=== PATIENT | female | born 1995 | race Caucasian/White ===

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

== ENCOUNTER 2017-07-02 05:21 | Emergency (ER) | payer OTHER ==
[2017-07-02] MEDS ORDERED: LORazepam 2 MG/ML INJ IV STA (05:57)
[2017-07-02] MEDS ORDERED: SODIUM CHLORIDE 0.9% 500 ML IV STA (05:57)
--- NOTE | 2017-07-02 06:04 | ED ---
Overdose HPI - General Source: EMS Mode of arrival: EMS Limitations: no limitations - History of Present Illness MD Complaint: accidental overdose -: hour(s) Context: Accidental Overdose: wanted to get high Associated Symptoms: paranoia, hallucinations <SamiTerrence - Last Filed: 07/02/17 05:59> <Jaden Ny - Last Filed: 07/02/17 09:13> - General Chief Complaint: Overdose Stated Complaint: Drug Use Time Seen by Provider: 07/02/17 05:26 - History of Present Illness Initial Comments: This patient is a 22-year-old woman brought to be evaluated for hallucinations and suspected overdose. The patient does report using methamphetamine. It was also reported to EMS that she had used LSD as well. The patient is requesting help to sleep. She states she is afraid she will if she does not get some sleep. She states that her thoughts are racing. She denies suicidal ideation. (Terrence Gallardo) - Related Data Home Medications Medication Instructions Recorded Confirmed No Known Home Medications [No 07/02/17 07/02/17 Known Home Medications] Allergies Allergy/AdvReac Type Severity Reaction Status Date / Time No Known Allergies Allergy Verified 05/03/17 13:39 Review of Systems ROS Other: All systems not noted in ROS Statement are negative. Respiratory: Denies: cough, dyspnea Cardiovascular: Denies: chest pain, palpitations, syncope Gastrointestinal: Denies: abdominal pain, vomiting, diarrhea Genitourinary: Denies: dysuria, hematuria Musculoskeletal: Denies: back pain Skin: Denies: rash Neurological: Denies: headache, weakness, numbness Psychiatric: Reports: anxiety. Denies: homicidal thoughts, suicidal thoughts <Terrence Gallardo - Last Filed: 07/02/17 05:59> ROS Other: All systems not noted in ROS Statement are negative. <Jaden Ny - Last Filed: 07/02/17 09:13> ROS Statement: Those systems with pertinent positive or pertinent negative responses have been documented in the HPI. Past Medical History Past Medical History: Asthma Additional Past Medical History / Comment(s): diarrhea History of Any Multi-Drug Resistant Organisms: None Reported Past Surgical History: Appendectomy Additional Past Surgical History / Comment(s): tubes in ears a child x4. Past Anesthesia/Blood Transfusion Reactions: No Reported Reaction Past Psychological History: ADD/ADHD, Anxiety, Panic Disorder Smoking Status: Current every day smoker Past Alcohol Use History: Occasional Past Drug Use History: Marijuana, Methamphetamine, Prescription Drug Abuse - Past Family History Mother History Unknown: Yes Family Medical History: No Reported History Father Additional Family Medical History / Comment(s): ADD, addiction <Terrence Gallardo - Last Filed: 07/02/17 05:59> General Exam Limitations: no limitations General appearance: alert, anxious Head exam: Present: atraumatic, normocephalic Eye exam: Present: normal appearance, PERRL, EOMI. Absent: scleral icterus, conjunctival injection Pupils: Present: mydriatic ENT exam: Present: normal oropharynx, mucous membranes dry Neck exam: Present: normal inspection Respiratory exam: Present: normal lung sounds bilaterally. Absent: respiratory distress, wheezes, rales, rhonchi, stridor Cardiovascular Exam: Present: regular rate, normal rhythm, normal heart sounds. Absent: systolic murmur, diastolic murmur, rubs, gallop GI/Abdominal exam: Present: soft. Absent: distended, tenderness, guarding, rebound Neurological exam: Present: alert Skin exam: Present: warm, dry, intact, normal color. Absent: rash <Terrence Gallardo - Last Filed: 07/02/17 05:59> Vital Signs 07/02/17 07/02/17 07/02/17 05:26 05:40 07:00 Pulse Rate 115 H 108 H Pulse Rate [ 115 H Pulse Oximetery ] Respiratory 22 18 Rate Blood Pressure 139/88 124/79 O2 Sat by Pulse 99 97 Oximetry Medical Decision Making <SamiTerrence - Last Filed: 07/02/17 05:59> <Jaden Ny - Last Filed: 07/02/17 09:13> - Medical Decision Making The patient was observed throughout the morning and remains awake alert oriented 3 the drugs that she took are wearing off. Patient is in satisfactory condition for discharge. (Jaden Ny) Disposition <SamiTerrence - Last Filed: 07/02/17 05:59> <Jaden Ny - Last Filed: 07/02/17 09:13> Clinical Impression: Drug abuse, Acute anxiety Disposition: HOME SELF-CARE Condition: Good Instructions: Anxiety (ED), Polysubstance Abuse (ED), Methamphetamine Abuse (ED ) Referrals: None,Stated [Primary Care Provider] - 1-2 days
[2017-07-02] MEDS ORDERED: LORazepam 2 MG/ML INJ IM STA (06:31)
[2017-07-02 10:12] VITALS: BP 123/72; PULSE 112; RESP 16
== END 2017-07-02 10:11 | disposition home or self-care (01) ==
LOC: EC 05:21
DX: F19.10 Other psychoactive substance abuse, uncomplicated (principal); F41.9 Anxiety disorder, unspecified; F17.200 Nicotine dependence, unspecified, uncomplicated
CPT/HCPCS: 99284; 96372; J2060

== ENCOUNTER 2017-07-13 18:33 | Emergency (ER) | payer OTHER ==
[2017-07-13 18:59] VITALS: TEMP 97.9
--- NOTE | 2017-07-13 19:24 | ED ---
Psych HPI - General Chief Complaint: Psychiatric Symptoms Stated Complaint: Mental Health/Drug Use Time Seen by Provider: 07/13/17 18:38 Source: patient, EMS Mode of arrival: EMS - History of Present Illness Initial Comments: 22-year-old female patient presents to the emergency department today requesting to be admitted to rehab or the mental health unit. Patient states that for the last few months she has been smoking meth and marijuana. States that since she started doing the drugs she has been having horrible hallucinations. She states at the beginning she smoked meth and did acid together, states that she saw things that she could not "unsee" and will "never be the same". States that she sees things that are not there and is constantly hearing people talking. She feels people are after her and wanting to hurt her. She states that she continues to do the meth because of hallucinations are not as bad. She states that she is in constant fear of falling asleep because when sleeping she cannot control her thoughts. She states she has not been sleeping related to this. Patient denies any suicidal or homicidal ideation. She denies any current physical symptoms other than being tired. She denies any chance of . Patient denies any recent rash, fever, chills, shortness breath, chest pain, abdominal pain, nausea, vomiting, diarrhea, constipation, back pain, numbness, tingling, dizziness, weakness, hematuria, dysuria, urinary urgency, urinary frequency, headache, or any other complaints. - Related Data Home Medications Medication Instructions Recorded Confirmed Albuterol Inhaler [Ventolin Hfa 2 puff INHALATION [id number] PRN 07/13/17 07/13/17 Inhaler] Allergies Allergy/AdvReac Type Severity Reaction Status Date / Time No Known Allergies Allergy Verified 07/13/17 19:41 Review of Systems ROS Statement: Those systems with pertinent positive or pertinent negative responses have been documented in the HPI. ROS Other: All systems not noted in ROS Statement are negative. Past Medical History Past Medical History: Asthma Additional Past Medical History / Comment(s): diarrhea History of Any Multi-Drug Resistant Organisms: None Reported Past Surgical History: Appendectomy Additional Past Surgical History / Comment(s): tubes in ears a child x4. Past Anesthesia/Blood Transfusion Reactions: No Reported Reaction Past Psychological History: ADD/ADHD, Anxiety, Panic Disorder Smoking Status: Never smoker Past Alcohol Use History: Occasional Past Drug Use History: Marijuana, Prescription Drug Abuse - Past Family History Mother History Unknown: Yes Family Medical History: No Reported History Father Additional Family Medical History / Comment(s): ADD, addiction General Exam Limitations: altered mental status General appearance: alert, in no apparent distress, anxious, other (Physical well-developed, well-nourished adult female patient in no acute distress. Vital signs upon presentation are temperature 97.9F, pulse 97, respirations 16 , blood pressure 127/84, pulse ox 97% on room air.) Head exam: Present: atraumatic, normocephalic, normal inspection Eye exam: Present: normal appearance, PERRL, EOMI. Absent: scleral icterus, conjunctival injection, periorbital swelling Respiratory exam: Present: normal lung sounds bilaterally. Absent: respiratory distress, wheezes, rales, rhonchi, stridor Cardiovascular Exam: Present: regular rate, normal rhythm, normal heart sounds. Absent: systolic murmur, diastolic murmur, rubs, gallop, clicks GI/Abdominal exam: Present: soft, normal bowel sounds. Absent: distended, tenderness, guarding, rebound, rigid Neurological exam: Present: alert, oriented X3, CN II-XII intact Expanded Speech: Present: fluid speech Cranial nerves: EOM's Intact: Normal, Nystagmus: Normal Motor strength exam: RUE: 5, LUE: 5, RLE: 5, LLE: 5 Eye Response: (4) open spontaneously Motor Response: (6) obeys commands Verbal Response: (5) oriented [place] Total: 15 Psychiatric exam: Present: normal affect, normal mood Skin exam: Present: warm, dry, intact, normal color. Absent: rash Course Vital Signs 07/13/17 07/13/17 07/13/17 18:50 22:59 23:08 Temperature 97.9 F Pulse Rate 97 84 87 Respiratory 16 Rate Blood Pressure 127/84 O2 Sat by Pulse 97 Oximetry 07/13/17 23:36 Temperature Pulse Rate 104 H Respiratory 18 Rate Blood Pressure 129/74 O2 Sat by Pulse 98 Oximetry Medical Decision Making - Medical Decision Making 22-year-old female patient percents to the emergency department today for evaluation of hallucinations. Patient states that she had been doing drugs for a few months. Patients drug screen was positive for methamphetamines, benzodiazepines, and marijuana. She was evaluated by emergency psych services for the hallucinations. It was felt that this was mostly related to her drug use and they recommended allowing her to sleep to see if her symptoms improved. Patient did sleep for a few hours here, she woke up, stated that she was still having the hallucinations. She is evaluated by [facility]. Patient denied hallucinations presently to [facility] from [facility]. Denied suicidal or homicidal ideation. She'll be discharged home at this time with follow-up information for rehab. She is instructed to return here immediately for any new, worsening, or concerning symptoms. She verbalizes understanding and agrees with this plan. - Lab Data Lab Results 07/13/17 07/13/17 Range/Units 19:29 19:29 Urine Color Yellow Urine Appearance Cloudy H (Clear) Urine pH 6.5 (5.0-8.0) Ur Specific [place] 1.013 (1.001-1.035) Urine Protein Trace H (Negative) Urine Glucose (UA) Negative (Negative) Urine Ketones Negative (Negative) Urine Blood Moderate H (Negative) Urine Nitrite Negative (Negative) Urine Bilirubin Negative (Negative) Urine Urobilinogen <2.0 (<2.0) mg/dL Ur Leukocyte Esterase Negative (Negative) Urine RBC 1 (0-5) /hpf Urine WBC <1 (0-5) /hpf Ur Squamous Epith Cells 2 (0-4) /hpf Amorphous Sediment Rare H (None) /hpf Urine Mucus Few H (None) /hpf Urine HCG, Qual Not Detected (Not Detectd) Urine Opiates Screen Not Detected (NotDetected) Ur Oxycodone Screen Not Detected (NotDetected) Urine Methadone Screen Not Detected (NotDetected) Ur Propoxyphene Screen Not Detected (NotDetected) Ur Barbiturates Screen Not Detected (NotDetected) U Tricyclic Antidepress Not Detected (NotDetected) Ur Phencyclidine Scrn Not Detected (NotDetected) Ur Amphetamines Screen Detected H (NotDetected) U Methamphetamines Scrn Not Detected (NotDetected) U Benzodiazepines Scrn Detected H (NotDetected) Urine Cocaine Screen Not Detected (NotDetected) U Marijuana (THC) Screen Detected H (NotDetected) Disposition Clinical Impression: Substance abuse, Hallucinations Disposition: HOME SELF-CARE Condition: Good Instructions: Polysubstance Abuse (ED), Hallucinations (ED) Additional Instructions: Follow-up outpatient for rehab for your drug addiction. Return here immediately for any new, worsening, or concerning symptoms. Referrals: None,Stated [Primary Care Provider] - 1-2 days Time of Disposition: 01:38
[2017-07-13 19:53] LABS: Amorphous Sediment,Urine Rare /hpf; Appearance,Urine Cloudy (Clear); Bilirubin,Urine Negative (Negative); Blood,Urine Moderate (Negative); Color,Urine Yellow; Glucose,Urine (UA) Negative (Negative); Ketones,Urine Negative (Negative); Leukocyte Esterase,Urine Negative (Negative); Mucus,Urine Few /hpf; Nitrite,Urine Negative (Negative); PH, Urine 6.5 (5.0-8.0); Protein,Urine Trace (Negative); RBC,Urine 1 /hpf (0-5); Specific Gravity,Urine 1.013 (1.001-1.035); Squamous Epithelial Cell,Urine 2 /hpf (0-4); Urobilinogen,Urine <2.0 mg/dL (<2.0); WBC,Urine <1 /hpf (0-5)
[2017-07-13 19:59] LABS: Amphetamine Screen,Urine Detected (NotDetected); Barbiturate Screen,Urine Not Detected (NotDetected); Benzodiazepines Screen,Urine Detected (NotDetected); Cocaine Screen,Urine Not Detected (NotDetected); Methadone Screen, Urine Not Detected (NotDetected); Opiate Screen,Urine Not Detected (NotDetected); Oxycodone Screen, Urine Not Detected (NotDetected); Phencyclidine Screen,Urine Not Detected (NotDetected); Tricyclic Antidepressant,Urine Not Detected (NotDetected); Urn Cannabinoid Scrn Detected (NotDetected)
[2017-07-13] MEDS ORDERED: LORazepam 1 MG TAB PO STA (20:49)
[2017-07-13] MEDS ORDERED: IPRATROPIUM-ALBUTEROL 3 ML NEB INHALATION STA (22:41)
[2017-07-13 23:38] VITALS: RESP 18
[2017-07-14 02:28] VITALS: BP 113/62; PULSE 89
== END 2017-07-14 02:39 | disposition home or self-care (01) ==
LOC: EC 18:33
DX: F12.10 Cannabis abuse, uncomplicated (principal); F15.10 Other stimulant abuse, uncomplicated; F13.20 Sedative, hypnotic or anxiolytic dependence, uncomplicated; R44.0 Auditory hallucinations
CPT/HCPCS: 80306; 81001; 81025; 82075; 94640; 99284

== ENCOUNTER 2017-10-20 00:07 | Emergency (ER) | payer OTHER ==
[2017-10-20 00:38] VITALS: BP 128/67; PULSE 86; RESP 20; TEMP 97.6
[2017-10-20] MEDS ORDERED: LORazepam 1 MG TAB ONE (03:08)
[2017-10-20 06:58] LABS: Appearance,Urine Clear (Clear); Bilirubin,Urine Negative (Negative); Blood,Urine Moderate (Negative); Color,Urine Colorless; Glucose,Urine (UA) Negative (Negative); Ketones,Urine Negative (Negative); Leukocyte Esterase,Urine Negative (Negative); Nitrite,Urine Negative (Negative); PH, Urine 6.5 (5.0-8.0); Protein,Urine Negative (Negative); RBC,Urine <1 /hpf (0-5); Specific Gravity,Urine 1.002 (1.001-1.035); Squamous Epithelial Cell,Urine 1 /hpf (0-4); Urobilinogen,Urine <2.0 mg/dL (<2.0)
[2017-10-20 07:18] LABS: Amphetamine Screen,Urine Detected (NotDetected); Barbiturate Screen,Urine Not Detected (NotDetected); Benzodiazepines Screen,Urine Not Detected (NotDetected); Cocaine Screen,Urine Not Detected (NotDetected); Methadone Screen, Urine Not Detected (NotDetected); Opiate Screen,Urine Not Detected (NotDetected); Oxycodone Screen, Urine Not Detected (NotDetected); Phencyclidine Screen,Urine Not Detected (NotDetected); Tricyclic Antidepressant,Urine Not Detected (NotDetected); Urn Cannabinoid Scrn Not Detected (NotDetected)
== END 2017-10-20 03:32 | disposition home or self-care (01) ==
LOC: EC 00:07
DX: F32.9 Major depressive disorder, single episode, unspecified (principal); F41.9 Anxiety disorder, unspecified; F17.200 Nicotine dependence, unspecified, uncomplicated
CPT/HCPCS: 80306; 81001; 81025; 82075; 99284

== ENCOUNTER 2019-07-04 17:13 | Emergency (ER) | payer OTHER ==
[2019-07-04] MEDS ORDERED: predniSONE 50 MG TAB PO STA (17:17)
[2019-07-04 17:18] VITALS: TEMP 98.9
--- NOTE | 2019-07-04 17:21 | ED ---
SOB HPI - General Stated Complaint: RHONA Time Seen by Provider: 07/04/19 17:13 Source: patient, EMS, RN notes reviewed Mode of arrival: EMS - History of Present Illness Initial Comments: This is a 24-year-old female history of asthma also history of drug abuse including heroin and methamphetamine which she did use the methamphetamine today who presents by EMS with complaints of shortness of breath this started during the middle of night. She states she ran out of her inhaler and Progressively worse. She was given 2 doses of albuterol one of Atrovent with some improvement. She states she's cold with secondary to being outside she denies any cough. She has some rhinorrhea she states she starting a sore throat she states no phlegm production. Patient did refuse an IV started by paramedics. MD Complaint: shortness of breath - Related Data Home Medications Medication Instructions Recorded Confirmed Albuterol Inhaler [Ventolin Hfa 2 puff INHALATION RT-Q6H PRN 07/13/17 10/20/17 Inhaler] Previous Rx's Medication Instructions Recorded methylPREDNISolone Dose Pack 4 mg PO DIRECTED #21 package 07/04/19 [Medrol Dose Pack] Allergies Allergy/AdvReac Type Severity Reaction Status Date / Time No Known Allergies Allergy Verified 07/13/17 19:41 Review of Systems ROS Statement: Those systems with pertinent positive or pertinent negative responses have been documented in the HPI. ROS Other: All systems not noted in ROS Statement are negative. Past Medical History Past Medical History: Asthma Additional Past Medical History / Comment(s): diarrhea History of Any Multi-Drug Resistant Organisms: None Reported Past Surgical History: Appendectomy Additional Past Surgical History / Comment(s): tubes in ears a child x4. Past Anesthesia/Blood Transfusion Reactions: No Reported Reaction Past Psychological History: ADD/ADHD, Anxiety, Panic Disorder Smoking Status: Current every day smoker - Past Family History Mother History Unknown: Yes Family Medical History: No Reported History Father Additional Family Medical History / Comment(s): ADD, addiction General Exam - General Exam Comments Initial Comments: This is a well-developed well-nourished awake alert oriented 3 female General appearance: alert, anxious Head exam: Present: atraumatic, normocephalic, normal inspection Eye exam: Present: normal appearance, PERRL, EOMI. Absent: scleral icterus, conjunctival injection, periorbital swelling ENT exam: Present: mucous membranes moist, other (Boggy nasal mucosa no pharyngeal exudates noted.) Neck exam: Present: normal inspection, full ROM, other (No stridor JVD or bruits). Absent: tenderness, meningismus, lymphadenopathy Respiratory exam: Present: normal lung sounds bilaterally, decreased breath sounds (Slightly decreased breath sounds with scattered expiratory wheezes at the bases). Absent: respiratory distress, wheezes, rales, rhonchi, stridor Cardiovascular Exam: Present: regular rate, normal rhythm, normal heart sounds. Absent: systolic murmur, diastolic murmur, rubs, gallop, clicks GI/Abdominal exam: Present: soft, normal bowel sounds. Absent: distended, tenderness, guarding, rebound, rigid Extremities exam: Present: normal inspection, full ROM, normal capillary refill. Absent: tenderness, pedal edema, joint swelling, calf tenderness Back exam: Present: normal inspection Neurological exam: Present: alert, oriented X3, CN II-XII intact Psychiatric exam: Present: normal affect, normal mood Skin exam: Present: warm, dry, intact, normal color. Absent: rash Course Vital Signs 07/04/19 17:14 Temperature 98.9 F Pulse Rate 98 Respiratory 16 Rate Blood Pressure 115/71 O2 Sat by Pulse 99 Oximetry - Reevaluation(s) Reevaluation #1: 07/04/19 18:23 Reevaluation patient reveals clear lung sounds and good aeration. Medical Decision Making - Medical Decision Making Patient showing much improved she does state that she has no money for medication though she did admit to staff that she did heroin and methamphetamine earlier today. Patient will be discharged he has have prescription already for an albuterol inhaler to be given a prescription for a Medrol Dosepak. She'll follow up with her doctor when necessary she is advised to refrain from illicit drug use. - Lab Data Lab Results 07/04/19 07/04/19 Range/Units 17:26 17:28 Urine HCG, Qual Not Detected (Not Detectd) Influenza Type A RNA Not Detected (Not Detectd) Influenza Type B (PCR) Not Detected (Not Detectd) Disposition Clinical Impression: Asthma with acute exacerbation, Substance abuse Disposition: HOME SELF-CARE Condition: Good Instructions (If sedation given, give patient instructions): Asthma (ED), Methamphetamine Abuse (ED), Polysubstance Abuse (ED) Prescriptions: methylPREDNISolone Dose Pack [Medrol Dose Pack] 4 mg PO DIRECTED #21 package Is patient prescribed a controlled substance at d/c from ED?: No Referrals: Jessi Catalan MD [Primary Care Provider] - 1-2 days
[2019-07-04 18:32] VITALS: BP 112/76; PULSE 86; RESP 18
== END 2019-07-04 18:31 | disposition home or self-care (01) ==
LOC: EC 17:13
DX: J45.901 Unspecified asthma with (acute) exacerbation (principal); F15.10 Other stimulant abuse, uncomplicated; F17.200 Nicotine dependence, unspecified, uncomplicated; Z79.899 Other long term (current) drug therapy; Z81.3 Family history of other psychoactive substance abuse and dependence
CPT/HCPCS: 81025; 87502; 99284; J7512

== ENCOUNTER 2019-07-04 20:11 | Emergency (ER) | payer OTHER ==
[2019-07-04 20:19] VITALS: BP 137/80; PULSE 78; RESP 24; TEMP 97.9
--- NOTE | 2019-07-04 22:15 | ED ---
Anxiety HPI - General Chief Complaint: Anxiety Stated Complaint: mental health Time Seen by Provider: 07/04/19 20:15 Source: patient, RN notes reviewed Mode of arrival: ambulatory - History of Present Illness Initial Comments: This is a 24-year-old female with a history of methamphetamine and heroin abuse somewhat which place earlier today who had just been discharged from this facility after being sent here by EMS for difficulty breathing and wheezing and apparent bronchospasm/asthma attack. She had been discharge initiated improved markedly. She comes back now complaining of being very anxious also she does not have a ride home she states she does not have money for medication. He originally told the triage personnel that she wanted to be seen by someone and talk to them. She later stated she didn't want to be here and wanted go home she denies a suicidal thoughts or ideation MD Complaint: anxiety - Related Data Home Medications: Home Medications Medication Instructions Recorded Confirmed Albuterol Inhaler [Ventolin Hfa 2 puff INHALATION RT-Q6H PRN 07/13/17 10/20/17 Inhaler] Previous Rx's Medication Instructions Recorded methylPREDNISolone Dose Pack 4 mg PO DIRECTED #21 package 07/04/19 [Medrol Dose Pack] Allergies/Adverse Reactions: Allergies Allergy/AdvReac Type Severity Reaction Status Date / Time No Known Allergies Allergy Verified 07/04/19 20:19 Review of Systems ROS Statement: Those systems with pertinent positive or pertinent negative responses have been documented in the HPI. ROS Other: All systems not noted in ROS Statement are negative. Past Medical History Past Medical History: Asthma Additional Past Medical History / Comment(s): diarrhea History of Any Multi-Drug Resistant Organisms: None Reported Past Surgical History: Appendectomy Additional Past Surgical History / Comment(s): tubes in ears a child x4. Past Anesthesia/Blood Transfusion Reactions: No Reported Reaction Past Psychological History: ADD/ADHD, Anxiety, Panic Disorder Smoking Status: Current every day smoker Past Alcohol Use History: None Reported Past Drug Use History: Marijuana, Methamphetamine, Opiates - Past Family History Mother History Unknown: Yes Family Medical History: No Reported History Father Additional Family Medical History / Comment(s): ADD, addiction General Exam - General Exam Comments Initial Comments: Is a well-developed well-nourished awake alert anxious appearing female she was initially tearful but then quickly calmed down. Limitations: no limitations General appearance: alert, in no apparent distress Head exam: Present: atraumatic, normocephalic, normal inspection Eye exam: Present: normal appearance, PERRL, EOMI. Absent: scleral icterus, conjunctival injection, periorbital swelling ENT exam: Present: normal exam, mucous membranes moist Neck exam: Present: normal inspection. Absent: tenderness, meningismus, lymphadenopathy Respiratory exam: Present: normal lung sounds bilaterally. Absent: respiratory distress, wheezes, rales, rhonchi, stridor Cardiovascular Exam: Present: regular rate, normal rhythm, normal heart sounds. Absent: systolic murmur, diastolic murmur, rubs, gallop, clicks GI/Abdominal exam: Present: soft, normal bowel sounds. Absent: distended, tenderness, guarding, rebound, rigid Extremities exam: Present: normal inspection, full ROM, normal capillary refill. Absent: tenderness, pedal edema, joint swelling, calf tenderness Back exam: Present: normal inspection Neurological exam: Present: alert, oriented X3, CN II-XII intact Psychiatric exam: Present: normal affect, normal mood Skin exam: Present: warm, dry, intact, normal color. Absent: rash Course Vital Signs 07/04/19 20:15 Temperature 97.9 F Pulse Rate 78 Respiratory 24 Rate Blood Pressure 137/80 O2 Sat by Pulse 98 Oximetry Medical Decision Making - Medical Decision Making The patient was observed for a period time and did request be going home she did not complain and denies any suicidal or homicidal thoughts or ideation no risk factors. Disposition Clinical Impression: Acute anxiety, Substance abuse Disposition: HOME SELF-CARE Condition: Good Instructions (If sedation given, give patient instructions): Generalized Anxiety Disorder (ED), Polysubstance Abuse (ED) Is patient prescribed a controlled substance at d/c from ED?: No Referrals: Jessi Catalan MD [Primary Care Provider] - 1-2 days
== END 2019-07-04 22:27 | disposition home or self-care (01) ==
LOC: EC 20:11
DX: F41.9 Anxiety disorder, unspecified (principal); F19.10 Other psychoactive substance abuse, uncomplicated; J45.909 Unspecified asthma, uncomplicated; F17.200 Nicotine dependence, unspecified, uncomplicated; Z79.51 Long term (current) use of inhaled steroids
CPT/HCPCS: 99283

== ENCOUNTER 2020-10-20 00:41 | Emergency (ER) | payer OTHER ==
[2020-10-20 00:52] VITALS: TEMP 99.4
[2020-10-20] MEDS ORDERED: MORPHINE SULFATE 4 MG/ML SYRINGE IV STA (01:02)
[2020-10-20] MEDS ORDERED: ONDANSETRON 4 MG/2 ML VIAL IVP STA (01:02)
[2020-10-20] MEDS ORDERED: SODIUM CHLORIDE 0.9% 1,000 ML IV STA ×2 (01:02→03:15)
--- NOTE | 2020-10-20 01:24 | ED ---
Abdominal Pain HPI - General Source: patient, RN notes reviewed Mode of arrival: ambulatory Limitations: no limitations <Julio C Diez - Last Filed: 10/20/20 03:03> <Juaquin Velazquez - Last Filed: 10/20/20 06:01> - General Chief Complaint: Abdominal Pain Stated Complaint: Back Pain Time Seen by Provider: 10/20/20 00:56 - History of Present Illness Initial Comments: Patient is a 25-year-old female that presents to emergency room complaining of bilateral flank pain. She notes she does have a history of urinary tract infections but has not had one in a while. She notes that she recently just started her vessel cycle today. She was laying face down in bed part asleep upon initial evaluation and exam. Only after being instructed roll around to her back she will over. At first she wasn't answering questions appropriately stating that she said her friend thought she stole his bowl for marijuana and that he wanted a back in response to if she had any history of kidney infections. Patient did not appear to be in any distress or pain while laying in bed during exam and interview. She did note that her pain was approximately a 9.5 out of 10. She denied any chest pain first breath headache vomiting diarrhea constipation fever fatigue chills mandatory of dysuria frequency. (Julio C Diez) - Related Data Home Medications Medication Instructions Recorded Confirmed Albuterol Inhaler (Mhu) [Ventolin 2 puff INHALATION RT-Q6H PRN 07/13/17 10/20/17 Hfa Inhaler] Previous Rx's Medication Instructions Recorded methylPREDNISolone Dose Pack 4 mg PO DIRECTED #21 package 07/04/19 [Medrol Dose Pack] Allergies Allergy/AdvReac Type Severity Reaction Status Date / Time No Known Allergies Allergy Verified 07/04/19 20:19 Review of Systems ROS Other: All systems not noted in ROS Statement are negative. <Julio C Diez - Last Filed: 10/20/20 03:03> ROS Other: All systems not noted in ROS Statement are negative. <Juaquin Velazquez - Last Filed: 10/20/20 06:01> ROS Statement: Those systems with pertinent positive or pertinent negative responses have been documented in the HPI. Past Medical History Past Medical History: Asthma Additional Past Medical History / Comment(s): diarrhea History of Any Multi-Drug Resistant Organisms: None Reported Past Surgical History: Appendectomy Additional Past Surgical History / Comment(s): tubes in ears a child x4. Past Anesthesia/Blood Transfusion Reactions: No Reported Reaction Past Psychological History: ADD/ADHD, Anxiety, Panic Disorder Smoking Status: Current every day smoker Past Alcohol Use History: None Reported Past Drug Use History: Marijuana, Methamphetamine, Opiates - Past Family History Mother History Unknown: Yes Family Medical History: No Reported History Father Additional Family Medical History / Comment(s): ADD, addiction <Julio C Diez - Last Filed: 10/20/20 03:03> General Exam Limitations: no limitations General appearance: alert, in no apparent distress Head exam: Present: atraumatic, normocephalic, normal inspection Eye exam: Present: normal appearance, PERRL, EOMI. Absent: scleral icterus, conjunctival injection, periorbital swelling Neck exam: Present: normal inspection Respiratory exam: Present: normal lung sounds bilaterally. Absent: respiratory distress, wheezes, rales, rhonchi, stridor Cardiovascular Exam: Present: regular rate, normal rhythm, normal heart sounds. Absent: systolic murmur, diastolic murmur, rubs, gallop, clicks GI/Abdominal exam: Present: soft, normal bowel sounds. Absent: distended, tenderness, guarding, rebound, rigid Extremities exam: Present: normal inspection, full ROM, normal capillary refill. Absent: tenderness, pedal edema, joint swelling, calf tenderness Back exam: Present: normal inspection, CVA tenderness (R), CVA tenderness (L) Neurological exam: Present: alert, oriented X3, CN II-XII intact Psychiatric exam: Present: normal affect, normal mood Skin exam: Present: warm, dry, intact, normal color. Absent: rash <Julio C Diez - Last Filed: 10/20/20 03:03> Course Vital Signs 10/20/20 10/20/20 10/20/20 00:49 01:34 02:00 Temperature 99.4 F Pulse Rate 137 H 122 H 100 Respiratory 36 H 22 20 Rate Blood Pressure 111/77 117/84 109/78 O2 Sat by Pulse 97 100 95 Oximetry 10/20/20 03:44 Temperature Pulse Rate 115 H Respiratory 22 Rate Blood Pressure 120/82 O2 Sat by Pulse 100 Oximetry Medical Decision Making - Lab Data Result diagrams: 10/20/20 01:19 10/20/20 01:19 <Julio C Diez - Last Filed: 10/20/20 03:03> - Lab Data Result diagrams: 10/20/20 01:19 10/20/20 01:19 <Juaquin Velazquez - Last Filed: 10/20/20 06:01> - Medical Decision Making 25-year-old female complaining of bilateral flank pain. Labs, 4 mg morphine, 4 mg Zofran, 1 L normal saline, KUB ordered. Patient throughout shortly after receiving medications, 10 mg of Reglan ordered. Patient did report to nurse that she is a heroin user and last time she used was yesterday morning. Labs: White blood cells 1.4, neutrophils 1.0, AST 53, alkaline phosphatase 144, albumin 3.3 Sepsis called at 2:38 AM. Blood cultures, lactic acid, Unasyn 3 g ordered. Case discussed with Dr. Velazquez. (Julio C Diez) 25 female DEL with nonspecific abdominal pain. No acute cause found treated with antibiotics for possible urinary tract infection and patient can be discharged home (Juauqin Velazquez) - Lab Data Lab Results 10/20/20 10/20/20 10/20/20 Range/Units 01:19 01:19 01:19 WBC 1.4 L* (3.8-10.6) k/uL RBC 4.53 (3.80-5.40) m/uL Hgb 12.7 (11.4-16.0) gm/dL Hct 38.7 (34.0-46.0) % MCV 85.5 (80.0-100.0) fL MCH 28.1 (25.0-35.0) pg MCHC 32.9 (31.0-37.0) g/dL RDW 13.7 (11.5-15.5) % Plt Count 204 (150-450) k/uL MPV 8.0 Neutrophils % 72 % Lymphocytes % 20 % Monocytes % 3 % Eosinophils % 1 % Basophils % 2 % Neutrophils # 1.0 L (1.3-7.7) k/uL Lymphocytes # 0.3 L (1.0-4.8) k/uL Monocytes # 0.0 (0-1.0) k/uL Eosinophils # 0.0 (0-0.7) k/uL Basophils # 0.0 (0-0.2) k/uL Sodium (137-145) mmol/L Potassium (3.5-5.1) mmol/L Chloride (98-107) mmol/L Carbon Dioxide (22-30) mmol/L Anion Gap mmol/L BUN (7-17) mg/dL Creatinine (0.52-1.04) mg/dL Est GFR (CKD-EPI)AfAm (>60 ml/min/1.73 sqM) Est GFR (CKD-EPI)NonAf (>60 ml/min/1.73 sqM) Glucose (74-99) mg/dL Plasma Lactic Acid Yang (0.7-2.0) mmol/L Calcium (8.4-10.2) mg/dL Phosphorus (2.5-4.5) mg/dL Magnesium (1.6-2.3) mg/dL Total Bilirubin (0.2-1.3) mg/dL AST (14-36) U/L ALT (4-34) U/L Alkaline Phosphatase (38-126) U/L Total Protein (6.3-8.2) g/dL Albumin (3.5-5.0) g/dL Amylase (30-110) U/L Lipase (23-300) U/L Urine Color Light Yellow Urine Appearance Clear (Clear) Urine pH 7.0 (5.0-8.0) Ur Specific [place] 1.007 (1.001-1.035) Urine Protein Negative (Negative) Urine Glucose (UA) Negative (Negative) Urine Ketones Negative (Negative) Urine Blood Large H (Negative) Urine Nitrite Negative (Negative) Urine Bilirubin Negative (Negative) Urine Urobilinogen <2.0 (<2.0) mg/dL Ur Leukocyte Esterase Negative (Negative) Urine RBC 23 H (0-5) /hpf Urine WBC 1 (0-5) /hpf Ur Squamous Epith Cells <1 (0-4) /hpf Urine Mucus Rare H (None) /hpf Urine HCG, Qual Not Detected (Not Detectd) Salicylates mg/dL Acetaminophen ug/mL 10/20/20 10/20/20 10/20/20 Range/Units 01:19 04:06 04:06 WBC (3.8-10.6) k/uL RBC (3.80-5.40) m/uL Hgb (11.4-16.0) gm/dL Hct (34.0-46.0) % MCV (80.0-100.0) fL MCH (25.0-35.0) pg MCHC (31.0-37.0) g/dL RDW (11.5-15.5) % Plt Count (150-450) k/uL MPV Neutrophils % % Lymphocytes % % Monocytes % % Eosinophils % % Basophils % % Neutrophils # (1.3-7.7) k/uL Lymphocytes # (1.0-4.8) k/uL Monocytes # (0-1.0) k/uL Eosinophils # (0-0.7) k/uL Basophils # (0-0.2) k/uL Sodium 134 L (137-145) mmol/L Potassium 3.6 (3.5-5.1) mmol/L Chloride 103 (98-107) mmol/L Carbon Dioxide 23 (22-30) mmol/L Anion Gap 8 mmol/L BUN 14 (7-17) mg/dL Creatinine 0.75 (0.52-1.04) mg/dL Est GFR (CKD-EPI)AfAm >90 (>60 ml/min/1.73 sqM) Est GFR (CKD-EPI)NonAf >90 (>60 ml/min/1.73 sqM) Glucose 96 (74-99) mg/dL Plasma Lactic Acid Yang 2.8 H* (0.7-2.0) mmol/L Calcium 9.2 (8.4-10.2) mg/dL Phosphorus 2.0 L (2.5-4.5) mg/dL Magnesium 1.0 L (1.6-2.3) mg/dL Total Bilirubin 0.9 (0.2-1.3) mg/dL AST 53 H (14-36) U/L ALT 21 (4-34) U/L Alkaline Phosphatase 144 H (38-126) U/L Total Protein 6.3 (6.3-8.2) g/dL Albumin 3.3 L (3.5-5.0) g/dL Amylase 31 (30-110) U/L Lipase 47 50 (23-300) U/L Urine Color Urine Appearance (Clear) Urine pH (5.0-8.0) Ur Specific [place] (1.001-1.035) Urine Protein (Negative) Urine Glucose (UA) (Negative) Urine Ketones (Negative) Urine Blood (Negative) Urine Nitrite (Negative) Urine Bilirubin (Negative) Urine Urobilinogen (<2.0) mg/dL Ur Leukocyte Esterase (Negative) Urine RBC (0-5) /hpf Urine WBC (0-5) /hpf Ur Squamous Epith Cells (0-4) /hpf Urine Mucus (None) /hpf Urine HCG, Qual (Not Detectd) Salicylates <1.0 mg/dL Acetaminophen <10.0 ug/mL Disposition <Julio C Diez - Last Filed: 10/20/20 03:03> Is patient prescribed a controlled substance at d/c from ED?: No <Juaquin Velazquez - Last Filed: 10/20/20 06:01> Clinical Impression: Alcohol abuse, Marijuana use, Intractable vomiting, Tobacco dependence, Abdominal pain Disposition: HOME SELF-CARE Condition: Fair Instructions (If sedation given, give patient instructions): Abdominal Pain (ED) Referrals: None,Stated [Primary Care Provider] - 1-2 days
[2020-10-20 02:03] LABS: ALT 21 U/L (4-34); AST 53 U/L (14-36); African American GFR (CKD) >90 (>60 ml/min/1.73 sqM); Albumin 3.3 g/dL (3.5-5.0); Alkaline Phosphatase 144 U/L (38-126); Amylase 31 U/L (30-110); Anion Gap 8 mmol/L; Blood Urea Nitrogen 14 mg/dL (7-17); Calcium 9.2 mg/dL (8.4-10.2); Carbon Dioxide 23 mmol/L (22-30); Chloride 103 mmol/L (98-107); Glucose 96 mg/dL (74-99); Lipase 47 U/L (23-300); Non-African American GFR(CKD) >90 (>60 ml/min/1.73 sqM); Potassium 3.6 mmol/L (3.5-5.1); Sodium 134 mmol/L (137-145); Total Bilirubin 0.9 mg/dL (0.2-1.3); Total Protein 6.3 g/dL (6.3-8.2)
[2020-10-20 02:07] LABS: Basophils % (A) 2 %; Eosinophils % (A) 1 %; HCT 38.7 % (34.0-46.0); HGB 12.7 gm/dL (11.4-16.0); Lymphocytes # (A) 0.3 k/uL (1.0-4.8); Lymphocytes % (A) 20 %; MCH 28.1 pg (25.0-35.0); MCHC 32.9 g/dL (31.0-37.0); MCV 85.5 fL (80.0-100.0); Monocytes % (A) 3 %; Neutrophils % (A) 72 %; Platelet Count 204 k/uL (150-450); RBC 4.53 m/uL (3.80-5.40); RDW 13.7 % (11.5-15.5)
[2020-10-20] MEDS ORDERED: METOCLOPRAMIDE 5 MG/ML 2 ML VIAL IVP STA (02:11)
[2020-10-20 02:12] LABS: WBC 1.4 k/uL (3.8-10.6)
[2020-10-20] MEDS ORDERED: AMPICILLIN-SULBACTAM 3 GM in SODIUM CHLORIDE 0.9% 100 ML IVPB STA (02:37)
[2020-10-20 02:43] LABS: Appearance,Urine Clear (Clear); Bilirubin,Urine Negative (Negative); Blood,Urine Large (Negative); Color,Urine Light Yellow; Glucose,Urine (UA) Negative (Negative); Ketones,Urine Negative (Negative); Leukocyte Esterase,Urine Negative (Negative); Mucus,Urine Rare /hpf; Nitrite,Urine Negative (Negative); Protein,Urine Negative (Negative); RBC,Urine 23 /hpf (0-5); Specific Gravity,Urine 1.007 (1.001-1.035); Squamous Epithelial Cell,Urine <1 /hpf (0-4); Urobilinogen,Urine <2.0 mg/dL (<2.0); WBC,Urine 1 /hpf (0-5)
[2020-10-20] MEDS ORDERED: AZITHROMYCIN 500 MG TAB PO STA (03:15)
[2020-10-20] MEDS ORDERED: cefTRIAXone IN SWFI 1,000 MG/10 ML SYRINGE IVP ONE (03:30)
[2020-10-20] MEDS: LORazepam 2 MG/ML INJ IV STA ×2 (03:30→04:00)
--- NOTE | 2020-10-20 04:52 | CT ---
EXAM: CT Abdomen and Pelvis Without Intravenous Contrast CLINICAL HISTORY: ITS.REASON CT Reason: weak TECHNIQUE: Axial computed tomography images of the abdomen and pelvis without intravenous contrast. CTDI is 11.77 mGy and DLP is 597.3 mGy-cm. This CT exam was performed using one or more of the following dose reduction techniques: automated exposure control, adjustment of the mA and/or kV according to patient size, and/or use of iterative reconstruction technique. COMPARISON: No relevant prior studies available. FINDINGS: Limitations: Limited study secondary to lack of IV contrast. Lung bases: Mild pulmonary vascular congestion seen within the lower lungs. ABDOMEN: Liver: Hepatic steatosis. Gallbladder and bile ducts: Unremarkable. Pancreas: Unremarkable. Spleen: Unremarkable. Adrenals: Unremarkable. Kidneys and ureters: Unremarkable. Stomach and bowel: Stomach is distended. PELVIS: Appendix: Appendix is not identified. Bladder: Unremarkable. Reproductive: Probable cyst within left ovary measured 3.7 cm. ABDOMEN and PELVIS: Intraperitoneal space: Unremarkable. Bones/joints: No acute fracture. No dislocation. Soft tissues: Unremarkable. Vasculature: See above. Lymph nodes: Unremarkable. IMPRESSION: 1. Limited study secondary to lack of IV contrast. 2. Mild pulmonary vascular congestion seen within the lower lungs. 3. Hepatic steatosis. 4. Probable cyst within left ovary measuring up to 3.7 cm.
[2020-10-20 04:55] LABS: Acetaminophen <10.0 ug/mL; Lipase 50 U/L (23-300); Salicylate <1.0 mg/dL
--- NOTE | 2020-10-20 05:09 | XR ---
EXAM: XR Chest, 1 View CLINICAL HISTORY: ITS.REASON XR Reason: weak TECHNIQUE: Frontal view of the chest. COMPARISON: No relevant prior studies available. FINDINGS: Lungs: Unremarkable. Pleural space: Unremarkable. Heart: Unremarkable. Mediastinum: Unremarkable. Bones/joints: Unremarkable. IMPRESSION: Normal chest x-ray.
[2020-10-20 06:51] VITALS: BP 109/67; PULSE 70; RESP 14
== END 2020-10-20 06:51 | disposition home or self-care (01) ==
LOC: EC 00:41
DX: R10.9 Unspecified abdominal pain (principal); R11.10 Vomiting, unspecified; F17.200 Nicotine dependence, unspecified, uncomplicated; F10.10 Alcohol abuse, uncomplicated; F12.90 Cannabis use, unspecified, uncomplicated; J45.909 Unspecified asthma, uncomplicated
CPT/HCPCS: 36415; 80053; 82150; 83605; 83690; 83735; 84100; 85025; 81001; 81025; 87040; 80143; 80179; 71045; 74176; 99284; J2060; J2270; J2765; J2405; J0696; J0295

== ENCOUNTER 2020-11-09 13:25 | Emergency (ER) | payer OTHER ==
[2020-11-09 13:32] VITALS: BP 120/86; PULSE 73; RESP 18; TEMP 98.1
[2020-11-09] MEDS ORDERED: ONDANSETRON 4 MG/2 ML VIAL IM STA (13:53)
--- NOTE | 2020-11-09 13:56 | ED ---
General Adult HPI - General Chief complaint: Psychiatric Symptoms Stated complaint: Withdrawl Time Seen by Provider: 11/09/20 13:34 Source: patient, EMS, RN notes reviewed, old records reviewed Mode of arrival: EMS - History of Present Illness Initial comments: 25 presenting with suicidal ideation, and her own use. Patient was transported by EMS, she's been off IV fentanyl and IV heroin for the past 24-48 hours. She did report suicidal ideation. She denies a suicidal plan. She states she has been known to use other illicit substances and is currently homeless. - Related Data Home Medications Medication Instructions Recorded Confirmed No Known Home Medications 11/09/20 11/09/20 Allergies Allergy/AdvReac Type Severity Reaction Status Date / Time No Known Allergies Allergy Verified 11/09/20 13:47 Review of Systems ROS Statement: Those systems with pertinent positive or pertinent negative responses have been documented in the HPI. ROS Other: All systems not noted in ROS Statement are negative. Past Medical History Past Medical History: Asthma Additional Past Medical History / Comment(s): diarrhea History of Any Multi-Drug Resistant Organisms: None Reported Past Surgical History: Appendectomy, Ear Surgery Additional Past Surgical History / Comment(s): tubes in ears a child x4. Past Anesthesia/Blood Transfusion Reactions: No Reported Reaction Past Psychological History: ADD/ADHD, Anxiety, Panic Disorder Smoking Status: Current every day smoker Past Alcohol Use History: None Reported Past Drug Use History: Heroin, IV Drug Use, Marijuana, Methamphetamine, Opiates - Past Family History Mother History Unknown: Yes Family Medical History: No Reported History Father Additional Family Medical History / Comment(s): ADD, addiction General Exam General appearance: alert, in no apparent distress Head exam: Present: atraumatic, normocephalic Eye exam: Present: normal appearance, PERRL ENT exam: Present: normal exam Neck exam: Present: normal inspection. Absent: tenderness, meningismus Respiratory exam: Present: normal lung sounds bilaterally. Absent: respiratory distress, wheezes Cardiovascular Exam: Present: regular rate, normal rhythm GI/Abdominal exam: Present: soft. Absent: distended, tenderness, guarding Extremities exam: Present: normal inspection, normal capillary refill. Absent: pedal edema Neurological exam: Present: alert, oriented X3, CN II-XII intact. Absent: motor sensory deficit Psychiatric exam: Present: agitated, suicidal ideation Skin exam: Present: warm, dry, intact. Absent: cyanosis, diaphoretic Course Vital Signs 11/09/20 13:26 Temperature 98.1 F Pulse Rate 73 Respiratory 18 Rate Blood Pressure 120/86 O2 Sat by Pulse 100 Oximetry - Reevaluation(s) Reevaluation #1: 11/09/20 13:56 Patient cleared for EPS. Medical Decision Making - Medical Decision Making Patient has been evaluated by EPS and felt to be safe for discharge. She is given referral to rehabilitation Center. She has signed a safety plan. She is not currently suicidal. She's given a cab fare to her friend's house. Disposition Clinical Impression: Suicidal thoughts, Depression Disposition: HOME SELF-CARE Condition: Fair Instructions (If sedation given, give patient instructions): Depression (ED), Polysubstance Abuse (ED) Additional Instructions: Please follow up with community mental health and the rehabilitation Center you have been provided with. Is patient prescribed a controlled substance at d/c from ED?: No Referrals: None,Stated [Primary Care Provider] - 1-2 days Jessi Catalan MD [REFERRING] - 1-2 days Time of Disposition: 14:36
[2020-11-09] MEDS ORDERED: LORazepam 1 MG TAB PO STA (14:37)
== END 2020-11-09 14:55 | disposition home or self-care (01) ==
LOC: EC 13:25
DX: F32.9 Major depressive disorder, single episode, unspecified (principal); J45.909 Unspecified asthma, uncomplicated; F17.200 Nicotine dependence, unspecified, uncomplicated; Z59.0 Homelessness
CPT/HCPCS: 99284; 96372; 82075; J2405

== ENCOUNTER 2020-11-10 01:20 | Emergency (ER) | payer OTHER ==
[2020-11-10 01:28] VITALS: RESP 20
--- NOTE | 2020-11-10 01:41 | ED ---
Overdose HPI - General Chief Complaint: Overdose Stated Complaint: Overdose Time Seen by Provider: 11/10/20 01:22 Source: patient, police, EMS Mode of arrival: EMS Limitations: no limitations - History of Present Illness Initial Comments: This patient is 25-year-old woman who is brought by EMS to have evaluation after accidental heroin overdose. The patient states that she has been using heroin for a long time, and was trying to detox. She states she had not used in about 2 days, and was developing severe withdrawal symptoms, including aches, nausea, vomiting that she used tonight and accidentally used to much. The patient states that she is not currently having any chest pain, dyspnea, palpitations or any other symptoms. MD Complaint: accidental overdose -: minutes(s) Intent: other (Accidental) How Overdose Was Discovered: family/friend present at time Context: Accidental Overdose: other (Patient states she was trying to get rid of withdrawal symptoms) Treatments Prior to Arrival: narcan - Related Data Home Medications Medication Instructions Recorded Confirmed No Known Home Medications 11/09/20 11/09/20 Allergies Allergy/AdvReac Type Severity Reaction Status Date / Time No Known Allergies Allergy Verified 11/10/20 01:27 Review of Systems ROS Statement: Those systems with pertinent positive or pertinent negative responses have been documented in the HPI. ROS Other: All systems not noted in ROS Statement are negative. Constitutional: Denies: fever, chills Respiratory: Denies: cough, dyspnea Cardiovascular: Denies: chest pain, palpitations, edema Gastrointestinal: Denies: abdominal pain Genitourinary: Denies: dysuria, hematuria Musculoskeletal: Denies: back pain Neurological: Denies: headache, weakness, numbness Psychiatric: Denies: depression, homicidal thoughts, suicidal thoughts Past Medical History Past Medical History: Asthma Additional Past Medical History / Comment(s): diarrhea, opiate abuse History of Any Multi-Drug Resistant Organisms: None Reported Past Surgical History: Appendectomy, Ear Surgery Additional Past Surgical History / Comment(s): tubes in ears a child x4. Past Anesthesia/Blood Transfusion Reactions: No Reported Reaction Past Psychological History: ADD/ADHD, Anxiety, Panic Disorder Smoking Status: Current every day smoker Past Alcohol Use History: None Reported Past Drug Use History: Heroin, IV Drug Use, Marijuana, Methamphetamine, Opiates - Past Family History Mother History Unknown: Yes Family Medical History: No Reported History Father Additional Family Medical History / Comment(s): ADD, addiction General Exam Limitations: no limitations General appearance: alert, in no apparent distress Head exam: Present: atraumatic, normocephalic Eye exam: Present: normal appearance. Absent: scleral icterus, conjunctival injection Respiratory exam: Present: normal lung sounds bilaterally. Absent: respiratory distress, wheezes, rales, rhonchi, stridor Cardiovascular Exam: Present: regular rate, normal rhythm, normal heart sounds. Absent: systolic murmur, diastolic murmur, rubs, gallop GI/Abdominal exam: Present: soft. Absent: distended, tenderness, guarding, rebound, rigid, mass Extremities exam: Present: normal inspection, normal capillary refill. Absent: pedal edema, calf tenderness Back exam: Present: normal inspection. Absent: CVA tenderness (R), CVA tenderness (L) Neurological exam: Present: alert Psychiatric exam: Absent: depressed, agitated, anxious, flat affect, manic, homicidal ideation, suicidal ideation Skin exam: Present: warm, dry, intact, normal color. Absent: rash Course Vital Signs 11/10/20 11/10/20 11/10/20 01:22 02:50 03:00 Temperature 98.5 F Pulse Rate 101 H 98 98 Respiratory 20 20 20 Rate Blood Pressure 108/56 118/80 O2 Sat by Pulse 100 97 99 Oximetry 11/10/20 11/10/20 11/10/20 04:00 05:00 06:00 Temperature Pulse Rate 97 98 80 Respiratory 20 20 20 Rate Blood Pressure 103/61 105/66 103/61 O2 Sat by Pulse 98 98 97 Oximetry 11/10/20 07:00 Temperature 98.7 F Pulse Rate 92 Respiratory 20 Rate Blood Pressure 115/65 O2 Sat by Pulse 98 Oximetry Disposition Clinical Impression: Accidental drug overdose Disposition: HOME SELF-CARE Condition: Good Instructions (If sedation given, give patient instructions): Adult Overdose (ED) Is patient prescribed a controlled substance at d/c from ED?: No Referrals: None,Stated [Primary Care Provider] - 1-2 days
[2020-11-10] MEDS ORDERED: ONDANSETRON ODT 4 MG TAB PO STA (01:52)
[2020-11-10 07:00] VITALS: BP 115/65; PULSE 92; TEMP 98.7
== END 2020-11-10 07:16 | disposition home or self-care (01) ==
LOC: EC 01:20
DX: T40.1X1A Poisoning by heroin, accidental (unintentional), initial encounter (principal); F17.200 Nicotine dependence, unspecified, uncomplicated; J45.909 Unspecified asthma, uncomplicated
CPT/HCPCS: 99284

== ENCOUNTER 2021-07-05 10:21 | Emergency (ER) | payer OTHER ==
[2021-07-05 10:25] VITALS: BP 136/74; RESP 24; TEMP 98.4
[2021-07-05] MEDS ORDERED: methylPREDNISolone SOD SUCCI 125 MG/2 ML VIAL IM ONE (10:32)
[2021-07-05] MEDS ORDERED: IPRATROPIUM 0.5 MG/2.5 ML NEBU INHALATION STA (10:33)
[2021-07-05] MEDS ORDERED: ALBUTEROL NEBULIZED 2.5 MG/3 ML INHALATION STA (10:33)
--- NOTE | 2021-07-05 10:35 | ED ---
General Adult HPI - General Chief complaint: Shortness of Breath Stated complaint: Asthma/RHONA Time Seen by Provider: 07/05/21 10:25 Source: patient, RN notes reviewed, old records reviewed Mode of arrival: ambulatory Limitations: no limitations - History of Present Illness Initial comments: This is a 26-year-old female who presents emergency department stating she has asthma and it always gets exacerbated when she saw her PER patient states she was around cats yesterday and since then she's been wheezing came.. Patient states she lost her nebulizer doesn't have any inhalers. Patient denies any fever chills or cough. Patient denies any exposure to cold. Patient denies any chest pain or palpitations. Patient denies any abdominal pain patient denies nausea vomiting diarrhea per patient denies any lightheadedness or dizziness. Patient states this always happens which was AND she just avoids them. - Related Data Home Medications Medication Instructions Recorded Confirmed No Known Home Medications 11/09/20 07/05/21 Allergies Allergy/AdvReac Type Severity Reaction Status Date / Time No Known Allergies Allergy Verified 07/05/21 10:39 Review of Systems ROS Statement: Those systems with pertinent positive or pertinent negative responses have been documented in the HPI. ROS Other: All systems not noted in ROS Statement are negative. Past Medical History Past Medical History: Asthma Additional Past Medical History / Comment(s): diarrhea, opiate abuse History of Any Multi-Drug Resistant Organisms: None Reported Past Surgical History: Appendectomy, Ear Surgery Additional Past Surgical History / Comment(s): tubes in ears a child x4. Past Anesthesia/Blood Transfusion Reactions: No Reported Reaction Past Psychological History: ADD/ADHD, Anxiety, Panic Disorder Smoking Status: Never smoker Past Alcohol Use History: None Reported Past Drug Use History: None Reported, Heroin, IV Drug Use, Marijuana, Methamphetamine, Opiates - Past Family History Mother History Unknown: Yes Family Medical History: No Reported History Father Additional Family Medical History / Comment(s): ADD, addiction General Exam - General Exam Comments Initial Comments: GENERAL: Patient is well-developed and well-nourished. Patient is nontoxic and well- hydrated and is in mild distress. ENT: Neck is soft and supple. No significant lymphadenopathy is noted. Oropharynx is clear. Moist mucous membranes. Neck has full range of motion without eliciting any pain. EYES: The sclera were anicteric and conjunctiva were pink and moist. Extraocular movements were intact and pupils were equal round and reactive to light. Eyelids were unremarkable. PULMONARY: Patient has diffuse wheezing CARDIOVASCULAR: There is a regular rate and rhythm without any murmurs gallops or rubs. ABDOMEN: Soft and nontender with normal bowel sounds. SKIN: Skin is clear with no lesions or rashes and otherwise unremarkable. NEUROLOGIC: Patient is alert and oriented x3. Cranial nerves II through XII are grossly intact. Motor and sensory are also intact. Normal speech, volume and content. Symmetrical smile. MUSCULOSKELETAL: Normal extremities with adequate strength and full range of motion. LYMPHATICS: No significant lymphadenopathy is noted PSYCHIATRIC: Normal psychiatric evaluation. Limitations: no limitations Course Vital Signs 07/05/21 07/05/21 07/05/21 10:23 10:54 11:16 Temperature 98.4 F Pulse Rate 115 H 88 90 Respiratory 24 24 24 Rate Blood Pressure 136/74 O2 Sat by Pulse 98 Oximetry Medical Decision Making - Medical Decision Making Patient received 3 breathing treatments and steroids and then left without telling anyone or being reevaluated. Disposition Clinical Impression: Asthma with acute exacerbation Disposition: Left Against Medical Advice Referrals: None,Stated [Primary Care Provider] - 1-2 days Time of Disposition: 11:30
[2021-07-05 11:17] VITALS: PULSE 90
== END 2021-07-05 12:31 | disposition left against medical advice (07) ==
LOC: EC 10:21
DX: J45.901 Unspecified asthma with (acute) exacerbation (principal)
CPT/HCPCS: 94640; 99284; 96372; J2930; 99283

== ENCOUNTER 2021-11-16 04:53 | Inpatient (IN) | payer OTHER ==
--- NOTE | 2021-11-16 07:14 | ED ---
General Adult HPI - General Source: patient Mode of arrival: ambulatory Limitations: physical limitation - History of Present Illness Onset/Timin -: days(s) Location: right, lower extremity Radiation: non-radiation Quality: aching Consistency: constant Improves with: none Worsens with: movement Treatments Prior to Arrival: none <Terrence Gallardo - Last Filed: 11/16/21 07:11> <Tete Aden - Last Filed: 11/18/21 15:21> - General Chief complaint: Recheck/Abnormal Lab/Rx Stated complaint: Hip Pain Time Seen by Provider: 11/16/21 05:25 - History of Present Illness Initial comments: This patient is a 26-year-old woman who presents to have evaluation of right hip pain. The patient relates that she began having pain approximately 8 days ago. She went to [facility] for the pain and was felt to have right hip septic arthritis. She underwent procedure on the 2 I believe have a washout of the joint. The patient is not able to give exact history, she does not know who the surgeon was. The patient had been in the hospital for course of antibiotics and then left AGAINST MEDICAL ADVICE on the . Since that time she has not been on any antibiotics. She presents here to have evaluation of pain. She has not noted fevers. There is history of previous IVDA. She is not aware of having had any endocarditis or previous echocardiogram to rule this out. (Terrence Gallardo) - Related Data Home Medications Medication Instructions Recorded Confirmed No Known Home Medications 11/09/20 11/16/21 Allergies Allergy/AdvReac Type Severity Reaction Status Date / Time No Known Allergies Allergy Verified 11/16/21 10:15 Review of Systems ROS Other: All systems not noted in ROS Statement are negative. Constitutional: Denies: fever, chills, weakness Respiratory: Denies: cough, dyspnea Cardiovascular: Denies: chest pain, palpitations, edema, syncope Gastrointestinal: Denies: abdominal pain, vomiting, diarrhea Musculoskeletal: Reports: as per HPI, arthralgia Skin: Denies: rash Neurological: Denies: weakness, numbness, paresthesias <Terrence Gallardo - Last Filed: 11/16/21 07:11> ROS Other: All systems not noted in ROS Statement are negative. <Tete Aden - Last Filed: 11/18/21 15:21> ROS Statement: Those systems with pertinent positive or pertinent negative responses have been documented in the HPI. Past Medical History Past Medical History: Asthma Additional Past Medical History / Comment(s): diarrhea, opiate abuse History of Any Multi-Drug Resistant Organisms: None Reported Past Surgical History: Appendectomy, Ear Surgery Additional Past Surgical History / Comment(s): tubes in ears a child x4. Past Anesthesia/Blood Transfusion Reactions: No Reported Reaction Past Psychological History: ADD/ADHD, Anxiety, Panic Disorder Smoking Status: Current every day smoker Past Alcohol Use History: None Reported Past Drug Use History: Heroin, IV Drug Use, Marijuana, Methamphetamine, Opiates - Past Family History Mother History Unknown: Yes Family Medical History: No Reported History Father Additional Family Medical History / Comment(s): ADD, addiction <Terrence Gallardo - Last Filed: 11/16/21 07:11> General Exam Limitations: physical limitation General appearance: alert, in no apparent distress Head exam: Present: atraumatic, normocephalic Eye exam: Present: normal appearance. Absent: scleral icterus, conjunctival injection ENT exam: Present: normal oropharynx Neck exam: Present: normal inspection Respiratory exam: Present: normal lung sounds bilaterally. Absent: respiratory distress, wheezes, rales, rhonchi, stridor Cardiovascular Exam: Present: regular rate, normal rhythm, normal heart sounds. Absent: systolic murmur, diastolic murmur, rubs, gallop GI/Abdominal exam: Present: soft. Absent: distended, tenderness, guarding, rebound, rigid, mass Extremities exam: Present: normal inspection, normal capillary refill. Absent: pedal edema, calf tenderness Back exam: Present: normal inspection. Absent: CVA tenderness (R), CVA tenderness (L) Neurological exam: Present: alert Skin exam: Present: warm, dry, intact, normal color. Absent: rash <Terrence Gallardo - Last Filed: 11/16/21 07:11> Extremities exam: Present: other (right anterior hip/femoral region there is an approximate 10 cm in length surgical incision with purulent drainage) <Tete Aden - Last Filed: 11/18/21 15:21> Course <Tete Aden - Last Filed: 11/18/21 15:21> Vital Signs 11/16/21 11/16/21 11/16/21 04:56 15:00 19:08 Temperature 98.4 F 99.2 F Pulse Rate 99 98 Pulse Rate [ Central Service Technician ] Pulse Rate [ 86 Pulse Oximetery ] Respiratory 18 18 16 Rate Blood Pressure 107/71 110/68 Blood Pressure 105/64 [Right Arm] O2 Sat by Pulse 98 98 98 Oximetry 11/16/21 11/16/21 11/16/21 19:09 19:50 22:12 Temperature 99.2 F 99.2 F Pulse Rate 85 94 Pulse Rate [ 89 Central Service Technician ] Pulse Rate [ Pulse Oximetery ] Respiratory 16 16 Rate Blood Pressure 105/64 109/77 Blood Pressure 117/78 [Right Arm] O2 Sat by Pulse 97 100 97 Oximetry - Reevaluation(s) Reevaluation #1: Dr. Mason paged 9:59 (Tete Aden) Reevaluation #2: Dr. Mason returned called - states that patient falsifies that she sees Dr. Ambrosio. States the patient does not belong to him and needs to be admitted to [facility] call doctor. 11/16/21 11:27 (Tete Aden) Reevaluation #3: 11/16/21 11:41 Dr. Best agreed to admit the patient (Tete Aden) Reevaluation #4: 11/16/21 12:22 Spoke with orthopedic PA who will talk to Dr. Isaac and call me back (Tete Aden) Medical Decision Making - Lab Data Result diagrams: 11/18/21 06:29 11/18/21 06:29 <Tete Aden - Last Filed: 11/18/21 15:21> - Medical Decision Making Patient was evaluated by myself. I did review her labs. Evaluation of the patient's surgical sites reveals purulent drainage which is cultured. We did get transfer packet from outside hospital which demonstrates wound cultures positive for strep pyogenes. She was on Ancef 2 g every 8 hours with anticipation that she would go on IV Dalvance for 6 weeks. Due to the drainage coming from the patient's wound there is suspicion the patient continues to have septic joint. Patient will require IV antibiotics. Did recommend transfer back to [facility] as this is where the patient had previous surgery. Patient is refusing at this time. States that she will not be transferred back to that facility as she did not like her care. Because of this I did call and speak with Dr. Best who agreed to admit the patient. Then spoke with Dr. Isaac who agreed to consult on the patient. IV line had been in place however patient was complaining that it hurts too much and therefore line was removed. Multiple attempts were made to reinitiate line. I was able to attempt once using ultrasound guidance however after the line would not flush patient refused to allow me any more attempts. We will call anesthesia at this time for assistance. Patient agreeable to admission at this time. Social work and case management consultation (Tete Aden) - Lab Data Lab Results 11/16/21 11/16/21 Range/Units 07:00 07:05 WBC 7.3 (3.8-10.6) k/uL RBC 3.69 L (3.80-5.40) m/uL Hgb 11.1 L (11.4-16.0) gm/dL Hct 33.4 L (34.0-46.0) % MCV 90.6 (80.0-100.0) fL MCH 30.0 (25.0-35.0) pg MCHC 33.1 (31.0-37.0) g/dL RDW 13.3 (11.5-15.5) % Plt Count 512 H (150-450) k/uL MPV 7.2 Neutrophils % 50 % Lymphocytes % 34 % Monocytes % 9 % Eosinophils % 6 % Basophils % 1 % Neutrophils # 3.7 (1.3-7.7) k/uL Lymphocytes # 2.5 (1.0-4.8) k/uL Monocytes # 0.6 (0-1.0) k/uL Eosinophils # 0.4 (0-0.7) k/uL Basophils # 0.0 (0-0.2) k/uL Sodium 136 L (137-145) mmol/L Potassium 4.1 (3.5-5.1) mmol/L Chloride 101 (98-107) mmol/L Carbon Dioxide 28 (22-30) mmol/L Anion Gap 7 mmol/L BUN 10 (7-17) mg/dL Creatinine 0.51 L (0.52-1.04) mg/dL Est GFR (CKD-EPI)AfAm >90 (>60 ml/min/1.73 sqM) Est GFR (CKD-EPI)NonAf >90 (>60 ml/min/1.73 sqM) Glucose 87 (74-99) mg/dL Calcium 9.0 (8.4-10.2) mg/dL Total Bilirubin 0.8 (0.2-1.3) mg/dL AST 29 (14-36) U/L ALT 22 (4-34) U/L Alkaline Phosphatase 88 (38-126) U/L C-Reactive Protein 5.1 H (<1.0) mg/dL Total Protein 7.7 (6.3-8.2) g/dL Albumin 3.5 (3.5-5.0) g/dL Disposition <Terrence Gallardo - Last Filed: 11/16/21 07:11> Is patient prescribed a controlled substance at d/c from ED?: No Time of Disposition: 11:50 Decision to Admit Reason: Admit from EC Decision Date: 11/16/21 Decision Time: 11:50 <Tete Aden - Last Filed: 11/18/21 15:21> Clinical Impression: Polysubstance abuse, IV drug user, Septic arthritis Disposition: ADMITTED IP TO THIS HOSP Condition: Serious
[2021-11-16 07:35] LABS: Basophils % (A) 1 %; Eosinophils # (A) 0.4 k/uL (0-0.7); Eosinophils % (A) 6 %; HCT 33.4 % (34.0-46.0); HGB 11.1 gm/dL (11.4-16.0); Lymphocytes # (A) 2.5 k/uL (1.0-4.8); Lymphocytes % (A) 34 %; MCHC 33.1 g/dL (31.0-37.0); MCV 90.6 fL (80.0-100.0); Mean Platelet Volume 7.2; Monocytes # (A) 0.6 k/uL (0-1.0); Monocytes % (A) 9 %; Neutrophils # (A) 3.7 k/uL (1.3-7.7); Neutrophils % (A) 50 %; Platelet Count 512 k/uL (150-450); RBC 3.69 m/uL (3.80-5.40); RDW 13.3 % (11.5-15.5); WBC 7.3 k/uL (3.8-10.6)
[2021-11-16 08:04] LABS: ALT 22 U/L (4-34); AST 29 U/L (14-36); African American GFR (CKD) >90 (>60 ml/min/1.73 sqM); Albumin 3.5 g/dL (3.5-5.0); Alkaline Phosphatase 88 U/L (38-126); Anion Gap 7 mmol/L; Blood Urea Nitrogen 10 mg/dL (7-17); Carbon Dioxide 28 mmol/L (22-30); Chloride 101 mmol/L (98-107); Glucose 87 mg/dL (74-99); Non-African American GFR(CKD) >90 (>60 ml/min/1.73 sqM); Potassium 4.1 mmol/L (3.5-5.1); Sodium 136 mmol/L (137-145); Total Bilirubin 0.8 mg/dL (0.2-1.3); Total Protein 7.7 g/dL (6.3-8.2)
[2021-11-16 08:29] LABS: C Reactive Protein 5.1 mg/dL (<1.0)
[2021-11-16] MEDS ORDERED: ACETAMINOPHEN TAB 325 MG TAB PO PRN (11:50)
[2021-11-16] MEDS ORDERED: ONDANSETRON 4 MG/2 ML VIAL IVP PRN (11:50)
[2021-11-16] MEDS ORDERED: IBUPROFEN 400 MG TAB PO PRN (11:50)
[2021-11-16] MEDS ORDERED: NALOXONE 0.4 MG/ML 1 ML VIAL IV PRN ×2 (11:50→17:32)
--- NOTE | 2021-11-16 14:27 | XR ---
EXAMINATION TYPE: XR Hip Limited RT DATE OF EXAM: 11/16/2021 COMPARISON: NONE HISTORY: Swelling and infection TECHNIQUE: 2 views submitted FINDINGS: There is no evidence of erosive change or acute fracture. No destructive changes seen. Osseous struct ures intact. IMPRESSION: 1. No acute osseous abnormality. If concern for joint effusion consider ultrasound..
[2021-11-16] MEDS ORDERED: ceFAZolin 1,000 MG VIAL (IM USE) IM SCH (16:00)
--- NOTE | 2021-11-16 16:31 | P.CNOR ---
History of Present Illness - [facility] Consult date: 11/16/21 History of present illness: This patient is a 26-year-old female with a history of IVDA that presented to [facility] emergency department on 11/16/21 with complaints of right hip pain. Per the emergency department physician, patient was recently evaluated at [facility] for septic arthritis of the right hip. Patient was taken to the OR for an I&D of the right hip on 11/07/21 by orthopedics. Patient left AMA twice from this facility in the post-operative period, before IV antibiotics were able to be established. Per discharge papers from [facility], cultures were positive for strep pyogenes. Patient was on Ancef 2 g every 8 hours with anticipation that she would be discharged on IV Dalvance for 6 weeks. Patient left AMA before antibiotics were established. Patient presented to [facility] emergency department today with complaints of drainage from the right hip incision. Patient refused transfer to [facility], stating she did not like the care she received at that facility. Patient was admitted under the care of internal medicine with a consult placed to orthopedic surgery for evaluation of her right hip. Patient is examined bedside in the emergency department this afternoon. She is complaining of drainage from her right hip incision. She states she otherwise feels well and denies fevers, chills. Patient is afebrile, WBC within normal limits. Past Medical History Past Medical History: Asthma Additional Past Medical History / Comment(s): diarrhea, opiate abuse History of Any Multi-Drug Resistant Organisms: None Reported Past Surgical History: Appendectomy, Ear Surgery Additional Past Surgical History / Comment(s): tubes in ears a child x4. Past Anesthesia/Blood Transfusion Reactions: No Reported Reaction Past Psychological History: ADD/ADHD, Anxiety, Panic Disorder Smoking Status: Current every day smoker Past Alcohol Use History: None Reported Past Drug Use History: Heroin, IV Drug Use, Marijuana, Methamphetamine, Opiates - Past Family History Mother History Unknown: Yes Family Medical History: No Reported History Father Additional Family Medical History / Comment(s): ADD, addiction Medications and Allergies Home Medications Medication Instructions Recorded Confirmed Type No Known Home Medications 11/09/20 11/16/21 History Allergies Allergy/AdvReac Type Severity Reaction Status Date / Time No Known Allergies Allergy Verified 11/16/21 10:15 Physical Examination On examination, patient is sitting up in the gurney in no apparent distress. She is alert and oriented, although she appears mildly lethargic. Her head appears normocephalic and atraumatic. Her breathing appears nonlabored. A focused examination of the right hip is conducted. On inspection of the right hip, there is a healing incision at the anterior hip with a moderate amount of active serosanguineous drainage. Mild erythema. Skin edges well approximated. Motor and sensory function is grossly intact on the right lower extremity. Patient is able to ambulate and weight-bear without pain in the right hip. Results Right hip x-ray 11/16/21: No acute fractures. No acute bony abnormalities. - Labs Labs: Abnormal Lab Results - Last 24 Hours (Table) 11/16/21 11/16/21 Range/Units 07:00 07:05 RBC 3.69 L (3.80-5.40) m/uL Hgb 11.1 L (11.4-16.0) gm/dL Hct 33.4 L (34.0-46.0) % Plt Count 512 H (150-450) k/uL Sodium 136 L (137-145) mmol/L Creatinine 0.51 L (0.52-1.04) mg/dL C-Reactive Protein 5.1 H (<1.0) mg/dL Microbiology - Last 24 Hours (Table) 11/16/21 10:27 Wound Culture - Preliminary Hip - Right H & H 11/16/21 Range/Units 07:05 Hgb 11.1 L (11.4-16.0) gm/dL Hct 33.4 L (34.0-46.0) % Result Diagrams: 11/16/21 07:05 11/16/21 07:00 Assessment and Plan Assessment: Right hip septic arthritis History recent I&D right hip 11/07/21 at outside facility, patient left AMA Plan: - Patient was discussed in detail with Dr. Isaac. No emergent surgical intervention planned for today. Stat MRI of the right hip w/wo contrast ordered for further evaluation of the right hip. Further recommendations pending MRI. - Will plan to place a Prevena wound vac over right hip incision due to current active drainage. - IV antibiotics per admitting team and infectious disease. - We will follow patient closely.
[2021-11-16] MEDS ORDERED: VANCOMYCIN IV PER PHARMACY 1 EACH MISC MISCELLANE PRN (17:23)
[2021-11-16] MEDS ORDERED: ALPRAZolam 0.25 MG TAB PO PRN (17:32)
--- NOTE | 2021-11-16 17:37 | P.HPIM ---
History of Present Illness H&P Date: 11/16/21 26 years old female with a history of IV drug abuse who was recently seen at [facility] for septic arthritis of right hip joint and apparently had incision and drainage of the right hip on 11/07/2021. Patient left AGAINST MEDICAL ADVICE before intravenous antibiotics arrangement could be done. Apparently over there patient was on Ancef and apparently was advised to have IV Dalvance for 6 weeks. She left AGAINST MEDICAL ADVICE before the antibiotic arrangement could be done. Patient presented to [facility] emergency with right hip pain, she reports that she is currently homeless and has no place to go, she does not have any source of income and apparently was with some friend who recently asked her to move out of her place. She does not want to go back to [facility] as she feels she was not treated in a good way over there as per patient. Patient reporting right hip pain with drainage from the right hip incision area. She doesn't report any chest pain fevers shortness of breath. She was seen by orthopedics in emergency department here who recommended getting an MRI of the right hip with and without contrast also possible plan for wound VAC placement on the right hip incision area, further surgical intervention plan will be dependent on MRI results. Infection disease also consulted. Hospital medicine consulted for admission to hospital for further care Assessment and Plan Septic arthritis Patient has likely septic arthritis, recently had incision and drainage done outside hospital, was supposed to get 6 weeks of IV antibiotics but left AGAINST MEDICAL ADVICE before the antibiotics could be arranged Seen by orthopedics here Plan for MRI hip joint, for further interventions by orthopedic pending MRI results Possible plan for wound VAC placement Continue IV antibiotics patient will be started on ceftriaxone and vancomycin Obtain blood cultures Infection disease will be consulted History of IV drug abuse Patient reports history of IV drug abuse Currently actively using methamphetamine Obtain urine drug screen DVT prophylaxis: Subcutaneous heparin CODE STATUS: Full code Disposition plan: Pending hospital course, to be determined Review of Systems 14 point review of system was done in detail and is negative except as above in HPI. Past Medical History Past Medical History: Asthma Additional Past Medical History / Comment(s): diarrhea, opiate abuse History of Any Multi-Drug Resistant Organisms: None Reported Past Surgical History: Appendectomy, Ear Surgery Additional Past Surgical History / Comment(s): tubes in ears a child x4. Past Anesthesia/Blood Transfusion Reactions: No Reported Reaction Past Psychological History: ADD/ADHD, Anxiety, Panic Disorder Smoking Status: Current every day smoker Past Alcohol Use History: None Reported Past Drug Use History: Heroin, IV Drug Use, Marijuana, Methamphetamine, Opiates - Past Family History Mother History Unknown: Yes Family Medical History: No Reported History Father Additional Family Medical History / Comment(s): ADD, addiction Medications and Allergies Home Medications Medication Instructions Recorded Confirmed Type No Known Home Medications 11/09/20 11/16/21 History Allergies Allergy/AdvReac Type Severity Reaction Status Date / Time No Known Allergies Allergy Verified 11/16/21 10:15 Physical Exam Vitals: Vital Signs Temp Pulse Resp BP Pulse Ox 11/16/21 15:00 98 18 110/68 98 11/16/21 04:56 98.4 F 99 18 107/71 98 Intake and Output 11/16/21 11/16/21 11/16/21 06:59 14:59 22:59 Other: Weight 68.765 kg General: non toxic, no acute distress, alert oriented to time place and person Head: atraumatic, normocephalic, symmetric Eyes: no lid lesion], anicteric sclera Mouth: no lip lesion, mucus membranes moist Cardiovascular: S1S2 reg rate and rhythm, no murmur, no gallop Lungs: Bilateral equal air entry, no wheezing no rhonchi no crackles. Abdominal: soft, nontender to palpation, no guarding, no appreciable organomeg brad Ext: Right groin area has incision site for recently done and right hip incision and drainage, mild erythema and drainage noticed Neuro: Alert oriented to time place and person, exam grossly nonfocal Psych: Mood and affect appropriate, patient not so certain Skin exam: No rashes no jaundice. Results CBC & Chem 7: 11/16/21 07:05 11/16/21 07:00 Labs: Abnormal Lab Results - Last 24 Hours (Table) 11/16/21 11/16/21 Range/Units 07:00 07:05 RBC 3.69 L (3.80-5.40) m/uL Hgb 11.1 L (11.4-16.0) gm/dL Hct 33.4 L (34.0-46.0) % Plt Count 512 H (150-450) k/uL Sodium 136 L (137-145) mmol/L Creatinine 0.51 L (0.52-1.04) mg/dL C-Reactive Protein 5.1 H (<1.0) mg/dL Microbiology - Last 24 Hours (Table) 11/16/21 10:27 Wound Culture - Preliminary Hip - Right Assessment and Plan Assessment: Please see above
--- NOTE | 2021-11-16 18:28 | MR ---
EXAMINATION TYPE: MR hip RT wo/w con DATE OF EXAM: 11/16/2021 COMPARISON: None HISTORY: Right hip pain, septic joint, rule out abscess osteomyelitis CONTRAST: Standard multiplanar, multisequence MRI departmental protocol images were obtained without contrast a nd with 7 ml mL intravenous Gadavist gadolinium contrast. There is evidence of right hip joint effusion with fluid. 2 extending anteriorly to close to the skin surface. Extensive fluid measures up to 2.5 cm in thickness extending from the femoral neck to the a nterior skin surface in the right groin. There is subcutaneous edema over the lateral right hip. The femoral heads have fairly normal signal p attern. No evidence of avascular necrosis. No fracture. The acetabula appear intact. No evidence of free fluid in the pelvis. Bladder distends smoothly. No sign of a pelvic mass. There i s some edema in the right gluteal muscle adjacent to the right iliac bone and acetabulum. There is soft tissue enhancement of the wall of the tract extending from the femur to the skin surfa ce. IMPRESSION: There is an irregular large sinus tract apparently developing from the skin surface to the femoral ne ck and the hip joint with wall enhancement. This is consistent with an abscess. Hip joint effusion. No evidence of avascular necrosis. No fracture. Normal hip joint space. Edema in the subcutaneous tissues and also in the gluteal muscle adjacent to the iliac bone.
[2021-11-16] MEDS: VANCOMYCIN 1,250 MG in SODIUM CHLORIDE 0.9% 250 ML IVPB SCH (19:49)
[2021-11-16] MEDS: HYDROcodone/APAP 5-325MG 1 EACH TAB PO PRN (23:00)
[2021-11-16] MEDS: SODIUM CHLORIDE 0.9% 1,000 ML IV SCH (23:32)
[2021-11-17] MEDS: VANCOMYCIN 1,250 MG in SODIUM CHLORIDE 0.9% 250 ML IVPB SCH ×3 (02:57→22:12)
[2021-11-17] MEDS: SODIUM CHLORIDE 0.9% 1,000 ML IV SCH ×3 (02:58→22:15)
[2021-11-17 03:44] LABS: Appearance,Urine Clear (Clear); Bilirubin,Urine Negative (Negative); Blood,Urine Negative (Negative); Color,Urine Yellow; Glucose,Urine (UA) Negative (Negative); Ketones,Urine Negative (Negative); Leukocyte Esterase,Urine Negative (Negative); Nitrite,Urine Negative (Negative); PH, Urine 6.5 (5.0-8.0); Protein,Urine Trace (Negative); Specific Gravity,Urine 1.031 (1.001-1.035)
--- NOTE | 2021-11-17 07:53 | P.PN ---
Progress Note - Text Progress Note Date: 11/17/21 I met with the patient last night, examined her hip and reviewed her MRI. Briefly, she had a septic hip that was washed out by an orthopaedic surgeon at [facility] earlier this month. She then left AMA twice, before getting a PICC line. She was unhappy with her care at [facility] and presented to our ED yesterday with a draining hip wound. Clinically, there is an anterior incision over the hip which is draining. There is mild swelling and erythema. She has pain with PROM of the hip. Her MRI showed a sinus tract, abscess and hip effusion. I recommended repeat I&D, taking deep cultures and closure over a drain. She understands the potential risks and that she is at a higher risk of having a complication due to her IV drug use and smoking. We also discussed that she will need to follow-up with her initial orthopaedic surgeon from [facility], Dr. Turcios, following discharge from our facility and that all issues regarding her hip and request for pain medications will be handled by Dr. Turcios following discharge and not me as he was her initial surgeon that performed her index procedure.
[2021-11-17] MEDS: ENOXAPARIN 40 MG/0.4 ML SYRINGE SQ SCH (09:04)
[2021-11-17 09:16] LABS: Basophils # (A) 0.03 X 10*3/uL (0.00-0.10); Basophils % (A) 0.5 %; Eosinophils # (A) 0.45 X 10*3/uL (0.04-0.35); HGB 9.4 g/dL (12.0-15.0); Immature Grans, Automated 0.3 %; Lymphocytes # (A) 2.32 X 10*3/uL (0.90-5.00); Lymphocytes % (A) 36.1 %; MCH 28.7 pg (27.0-32.0); MCHC 31.3 g/dL (32.0-37.0); MCV 91.5 fL (80.0-97.0); Mean Platelet Volume 9.8 fL (9.5-12.2); Monocytes # (A) 0.72 X 10*3/uL (0.20-1.00); Monocytes % (A) 11.2 %; NRBC Per 100 WBC 0 /100 WBCS (0.0-0.0); Neutrophils # (A) 2.89 X 10*3/uL (1.80-7.70); Neutrophils % (A) 44.9 %; Platelet Count 465 X 10*3/uL (140-440); RBC 3.28 X 10*6/uL (4.10-5.20); WBC 6.43 X 10*3/uL (4.50-10.00)
--- NOTE | 2021-11-17 09:21 | P.PN ---
Subjective Progress Note Date: 11/17/21 History of Present Illness H&P Date: 11/16/21 26 years old female with a history of IV drug abuse who was recently seen at [facility] for septic arthritis of right hip joint and apparently had incision and drainage of the right hip on 11/07/2021. Patient left AGAINST MEDICAL ADVICE before intravenous antibiotics arrangement could be done. Apparently over there patient was on Ancef and apparently was advised to have IV Dalvance for 6 weeks. She left AGAINST MEDICAL ADVICE before the antibiotic arrangement could be done. Patient presented to [facility] emergency with right hip pain, she reports that she is currently homeless and has no place to go, she does not have any source of income and apparently was with some friend who recently asked her to move out of her place. She does not want to go back to [facility] as she feels she was not treated in a good way over there as per patient. Patient reporting right hip pain with drainage from the right hip incision area. She doesn't report any chest pain fevers shortness of breath. She was seen by orthopedics in emergency department here who recommended getting an MRI of the right hip with and without contrast also possible plan for wound VAC placement on the right hip incision area, further surgical intervention plan will be dependent on MRI results. Infection disease also consulted. Hospital medicine consulted for admission to hospital for fu rther care Interval history: Patient was examined at the bedside. 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 Patient is complaining of significant pain in the right hip. Patient threatened to leave AGAINST MEDICAL ADVICE. Admit with the patient and nursing staff this morning patient was told about the risks she can increase if she is a hospitalist patient with a diagnosis of septic arthritis. Was able to convince the patient to stay in hospital. Bedside sitter ordered. Patient is scheduled for surgery today by orthopedic surgery Physical examination: General: non toxic, no distress, appears at stated age Derm: warm, dry Head: atraumatic, normocephalic, symmetric Eyes: EOMI, no lid lag, anicteric sclera Mouth: no lip lesion, mucus membranes moist Cardiovascular: S1S2 reg, no murmur, positive posterior tibial pulse bilateral, Lungs: CTA bilateral, no rhonchi, no rales , no accessory muscle use Abdominal: soft, nontender to palpation, no guarding, no appreciable organomegaly Ext: no gross muscle atrophy, no edema, no contractures Neuro: CN II-XI grossly intact, no focal neuro deficits Psych: Alert, oriented, appropriate affect Assessment and plan: Right hip Septic arthritis Patient has likely septic arthritis, recently had incision and drainage done outside hospital, was supposed to get 6 weeks of IV antibiotics but left AGAINST MEDICAL ADVICE before the antibiotics could be arranged MRI showed evidence of right hip septic arthritis with large irregular sinus tract extending from femoral neck to the skin. Patient scheduled for surgery today Continue IV antibiotics patient will be started on ceftriaxone and vancomycin Obtain blood cultures Infection disease consulted Pain control History of IV drug abuse Patient reports history of IV drug abuse. Currently actively using heroin and methamphetamine. Check hepatitis panel and HIV. Agitation -Consult psychiatry. -Pain control with IV hydromorphone and long-acting MS Contin DVT prophylaxis: Subcutaneous heparin CODE STATUS: Full code Disposition plan: To be determined Objective - Vital Signs Vital signs: Vital Signs Temp 98.1 F 11/17/21 02:00 Pulse 89 11/17/21 02:00 Resp 16 11/17/21 02:00 BP 117/59 11/17/21 02:00 Pulse Ox 100 11/17/21 02:00 FiO2 Intake & Output 11/16/21 11/17/21 11/17/21 18:59 06:59 18:59 Intake Total 200 Output Total 150 Balance 50 Weight 68.765 kg Intake: Oral 200 Output: Urine 150 - Labs CBC & Chem 7: 11/16/21 07:05 11/16/21 07:00 Labs: Abnormal Lab Results - Last 24 Hours (Table) 11/17/21 Range/Units 02:10 Urine Protein Trace H (Negative) Microbiology - Last 24 Hours (Table) 11/16/21 10:27 Gram Stain - Preliminary Hip - Right Wound Culture - Preliminary
[2021-11-17 09:32] LABS: African American GFR (CKD) 155.1 (60.0-200.0); BUN/Creat Ratio 15.8 Ratio (12.00-20.00); Blood Urea Nitrogen 8.2 mg/dL (9.0-27.0); Calcium 8.6 mg/dL (8.7-10.3); Carbon Dioxide 25.5 mmol/L (20.0-27.5); Non-African American GFR(CKD) 133.8 (60.0-200.0); Potassium 4.5 mmol/L (3.5-5.5)
[2021-11-17 09:36] LABS: Basophils # (A) 0.1 k/uL (0-0.2); Basophils % (A) 1 %; Eosinophils # (A) 0.4 k/uL (0-0.7); Eosinophils % (A) 6 %; HCT 30.3 % (34.0-46.0); Lymphocytes # (A) 1.9 k/uL (1.0-4.8); Lymphocytes % (A) 28 %; MCH 30.3 pg (25.0-35.0); MCV 91.6 fL (80.0-100.0); Mean Platelet Volume 7.3; Monocytes # (A) 0.5 k/uL (0-1.0); Monocytes % (A) 8 %; Neutrophils # (A) 3.7 k/uL (1.3-7.7); Neutrophils % (A) 56 %; Platelet Count 498 k/uL (150-450); RBC 3.31 m/uL (3.80-5.40); RDW 13.3 % (11.5-15.5); WBC 6.7 k/uL (3.8-10.6)
[2021-11-17 09:55] LABS: ALT 18 U/L (4-34); AST 24 U/L (14-36); African American GFR (CKD) >90 (>60 ml/min/1.73 sqM); Albumin/Globulin Ratio 0.8; Alkaline Phosphatase 87 U/L (38-126); Anion Gap 4 mmol/L; Blood Urea Nitrogen 8 mg/dL (7-17); C Reactive Protein 4.5 mg/dL (<1.0); Calcium 8.5 mg/dL (8.4-10.2); Carbon Dioxide 29 mmol/L (22-30); Chloride 101 mmol/L (98-107); Globulin 3.8 g/dL; Glucose 104 mg/dL (74-99); Non-African American GFR(CKD) >90 (>60 ml/min/1.73 sqM); Potassium 4.8 mmol/L (3.5-5.1); Sodium 134 mmol/L (137-145); Total Bilirubin 0.4 mg/dL (0.2-1.3); Total Protein 6.8 g/dL (6.3-8.2)
--- NOTE | 2021-11-17 12:51 | P.PN ---
Subjective Progress Note Date: 11/17/21 This patient is a 26-year-old female with a history of IVDA that presented to [facility] emergency department on 11/16/21 with complaints of right hip pain. Per the emergency department physician, patient was recently evaluated at [facility] for septic arthritis of the right hip. Patient was taken to the OR for an I&D of the right hip on 11/07/21 by orthopedics. Patient left AMA twice from this facility in the post-operative period, before IV antibiotics were able to be established. Per discharge papers from [facility], cultures were positive for strep pyogenes. Patient was on Ancef 2 g every 8 hours with anticipation that she would be discharged on IV Dalvance for 6 weeks. Patient left AMA before antibiotics were established. Patient presented to [facility] emergency department today with complaints of drainage from the right hip incision. Patient refused transfer to [facility], stating she did not like the care she received at that facility. Patient was admitted under the care of internal medicine with a consult placed to orthopedic surgery for evaluation of her right hip. Patient is examined bedside in the emergency department this afternoon. She is complaining of drainage from her right hip incision. She states she otherwise feels well and denies fevers, chills. Patient is afebrile, WBC within normal limits. 11/17/21: Patient is examined bedside this morning. She was threatening to leave AMA this morning and IV was removed per nursing. Dr. Solis also evaluating patient at the time of my exam and has consulted psych. After discussion with patient, Dr. Solis patient now gave verbal consent to surgery this afternoon. Psych consult ordered. Objective - Vital Signs Vital signs: Vital Signs Temp 98.1 F 11/17/21 02:00 Pulse 89 11/17/21 02:00 Resp 16 11/17/21 02:00 BP 117/59 11/17/21 02:00 Pulse Ox 100 11/17/21 02:00 FiO2 Intake & Output 11/16/21 11/17/21 11/17/21 18:59 06:59 18:59 Intake Total 200 Output Total 150 Balance 50 Weight 68.765 kg Intake: Oral 200 Output: Urine 150 Other: Voiding Method Toilet - Exam On examination, patient is laying in bed very agitated. Security is bedside. Dr. Solis, nursing is bedside. Her Prevena wound is in place at the anterior hip. Rest of examination is not performed due to patient's current agitation. - Labs CBC & Chem 7: 11/17/21 09:01 11/17/21 09:01 Labs: Abnormal Lab Results - Last 24 Hours (Table) 11/17/21 11/17/21 11/17/21 Range/Units 02:10 05:50 05:50 RBC 3.28 L (4.10-5.20) X 10*6/uL Hgb 9.4 L (12.0-15.0) g/dL Hct 30.0 L (37.2-46.3) % MCHC 31.3 L (32.0-37.0) g/dL Plt Count 465 H (140-440) X 10*3/uL Eosinophils # 0.45 H (0.04-0.35) X 10*3/uL Sodium (137-145) mmol/L BUN 8.2 L (9.0-27.0) mg/dL Creatinine 0.5 L (0.6-1.5) mg/dL Glucose 119 H (70-110) mg/dL Calcium 8.6 L (8.7-10.3) mg/dL C-Reactive Protein (<1.0) mg/dL Albumin (3.5-5.0) g/dL Urine Protein Trace H (Negative) 11/17/21 11/17/21 Range/Units 09:01 09:01 RBC 3.31 L (4.10-5.20) X 10*6/uL Hgb 10.0 L (12.0-15.0) g/dL Hct 30.3 L (37.2-46.3) % MCHC (32.0-37.0) g/dL Plt Count 498 H (140-440) X 10*3/uL Eosinophils # (0.04-0.35) X 10*3/uL Sodium 134 L (137-145) mmol/L BUN (9.0-27.0) mg/dL Creatinine 0.45 L (0.6-1.5) mg/dL Glucose 104 H (70-110) mg/dL Calcium (8.7-10.3) mg/dL C-Reactive Protein 4.5 H (<1.0) mg/dL Albumin 3.0 L (3.5-5.0) g/dL Urine Protein (Negative) Microbiology - Last 24 Hours (Table) 11/16/21 07:05 Blood Culture - Preliminary Blood No Growth after 24 hours 11/16/21 10:27 Gram Stain - Preliminary Hip - Right Wound Culture - Preliminary Assessment and Plan Assessment: Right hip septic arthritis History recent I&D right hip 11/07/21 at outside facility, patient left AMA Plan: - Patient's MRI of the right hip was reviewed with Dr. Isaac. MRI shows large abscess of the right hip. Recommend I&D of the right hip today. Patient told nursing she was going to leave AMA this morning, although did give verbal consent for surgery after discussed with internal medicine. - Antibiotics per infectious disease. - Medical management per internal medicine.
[2021-11-17 13:02] LABS: Erythrocyte Sedimentation Rate 83 mm/hr (0-20)
[2021-11-17] MEDS ORDERED: chlorproMAZINE 25 MG/ML 2 ML AMP IM PRN (13:03)
[2021-11-17] MEDS ORDERED: chlorproMAZINE 25 MG TAB PO PRN (13:03)
[2021-11-17] MEDS ORDERED: hydrOXYzine HCL 50 MG/ML 1 ML VIAL IM PRN (13:04)
--- NOTE | 2021-11-17 13:25 | P.CN ---
Psychiatric Consult - . Consult date: 11/17/21 Consult:: 11/17/21 13:24 IDENTIFYING DATA: This patient is a single, unemployed, 26-year-old female with significant history of IV drug abuse presents to the hospital for right hip pain HISTORY OF PRESENT ILLNESS: The patient presented to the hospital on 11/16/2021, brought into the hospital on her own solution for right hip pain. The patient was recently at [facility] for the pain with concerns for septic arthritis. The patient underwent a procedure on the tablet out of the joint. The patient had been the hospital for a course of antibiotics but left AGAINST MEDICAL ADVICE on the . The patient has been nonadherent with any antibiotics since then. The patient has been noted to be intermittently agitated and was found to have brought in contraband narcotics onto the medical floor. As per discussion with the patient's nurse, the patient is intermittently agitated and labile. She is drug-seeking and is currently sleeping. Psychiatry has been consulted for evaluation of agitation and IV drug abuse. PAST PSYCHIATRIC HISTORY: Patient has reported history of ADHD, anxiety, and panic disorder. Patient was previously on a regimen of Seroquel, Zoloft, and Vistaril during her last inpatient psychiatric admission on our unit in 2016. One previous psychiatric admission in 2016 for suicidal ideation. Patient is reportedly not following up with any outpatient services. Unable to determine any previous suicide attempts. PAST MEDICAL HISTORY: Past Medical History: Asthma Additional Past Medical History / Comment(s): diarrhea, opiate abuse History of Any Multi-Drug Resistant Organisms: None Reported Past Surgical History: Appendectomy, Ear Surgery Additional Past Surgical History / Comment(s): tubes in ears a child x4. Past Anesthesia/Blood Transfusion Reactions: No Reported Reaction Past Psychological History: ADD/ADHD, Anxiety, Panic Disorder Smoking Status: Current every day smoker Past Alcohol Use History: None Reported Past Drug Use History: Heroin, IV Drug Use, Marijuana, Methamphetamine, Opiates ALLERGIES: NO KNOWN DRUG ALLERGIES CHEMICAL DEPENDENCY HISTORY: Patient is noted to abuse heroin, amphetamines, marijuana, opiates, and is currently in every day smoker. FAMILY PSYCHIATRIC/SUBSTANCE USE HISTORY: Unable to determine at this time. Reported family history of addiction. SOCIAL HISTORY: Patient is listed as single. As per chart review, the patient has her GED. She was reportedly raised by her grandmother. MENTAL STATUS EXAM: General Appearance: Patient appears to be stated age, and is currently resting in bed comfortably. Behavior: Patient is currently not agitated and appears to be sleeping. Speech: Unable to assess Mood/Affect: Unable to assess. Suicidality/Homicidality: Unable to assess Perceptions: Unable to assess. Though content/process: Unable to assess. Memory and concentration: Unable to assess. Judgment and insight: Unable to assess. Vital Signs Temp 98.1 F 11/17/21 02:00 Pulse 89 11/17/21 02:00 Resp 16 11/17/21 02:00 BP 117/59 11/17/21 02:00 Pulse Ox 100 11/17/21 02:00 FiO2 Intake & Output 11/16/21 11/17/21 11/17/21 18:59 06:59 18:59 Intake Total 200 Output Total 150 Balance 50 Weight 68.765 kg Intake: Oral 200 Output: Urine 150 Other: Voiding Method Toilet Laboratory Results - Last 24 Hours 11/17/21 11/17/21 11/17/21 02:10 05:50 05:50 WBC 6.43 RBC 3.28 L Hgb 9.4 L Hct 30.0 L MCV 91.5 MCH 28.7 MCHC 31.3 L RDW 13.0 Plt Count 465 H MPV 9.8 Immature Gran % (Auto) 0.3 Absolute Nucleated RBC 0 Neutrophils % 44.9 Lymphocytes % 36.1 Monocytes % 11.2 Eosinophils % 7.0 Basophils % 0.5 Immature Gran # 0.02 Neutrophils # 2.89 Lymphocytes # 2.32 Monocytes # 0.72 Eosinophils # 0.45 H Basophils # 0.03 NRBC/100 WBC Diff 0 ESR Sodium 138 Potassium 4.5 Chloride 103 Carbon Dioxide 25.5 Anion Gap 10.00 BUN 8.2 L Creatinine 0.5 L Est GFR (CKD-EPI)AfAm 155.1 Est GFR (CKD-EPI)NonAf 133.8 BUN/Creatinine Ratio 15.80 Glucose 119 H Calcium 8.6 L Total Bilirubin AST ALT Alkaline Phosphatase C-Reactive Protein Total Protein Albumin Globulin Albumin/Globulin Ratio Urine Color Yellow Urine Appearance Clear Urine pH 6.5 Ur Specific Cornelia 1.031 Urine Protein Trace H Urine Glucose (UA) Negative Urine Ketones Negative Urine Blood Negative Urine Nitrite Negative Urine Bilirubin Negative Urine Urobilinogen 12.0 Ur Leukocyte Esterase Negative 11/17/21 11/17/21 09:01 09:01 WBC 6.7 RBC 3.31 L Hgb 10.0 L Hct 30.3 L MCV 91.6 MCH 30.3 MCHC 33.0 RDW 13.3 Plt Count 498 H MPV 7.3 Immature Gran % (Auto) Absolute Nucleated RBC Neutrophils % 56 Lymphocytes % 28 Monocytes % 8 Eosinophils % 6 Basophils % 1 Immature Gran # Neutrophils # 3.7 Lymphocytes # 1.9 Monocytes # 0.5 Eosinophils # 0.4 Basophils # 0.1 NRBC/100 WBC Diff ESR 83 H Sodium 134 L Potassium 4.8 Chloride 101 Carbon Dioxide 29 Anion Gap 4 BUN 8 Creatinine 0.45 L Est GFR (CKD-EPI)AfAm >90 Est GFR (CKD-EPI)NonAf >90 BUN/Creatinine Ratio Glucose 104 H Calcium 8.5 Total Bilirubin 0.4 AST 24 ALT 18 Alkaline Phosphatase 87 C-Reactive Protein 4.5 H Total Protein 6.8 Albumin 3.0 L Globulin 3.8 Albumin/Globulin Ratio 0.8 Urine Color Urine Appearance Urine pH Ur Specific Cornelia Urine Protein Urine Glucose (UA) Urine Ketones Urine Blood Urine Nitrite Urine Bilirubin Urine Urobilinogen Ur Leukocyte Esterase IMPRESSIONS: Acute agitation, likely due to substance withdrawal IV drug abuse - heroin Methamphetamine use disorder Opiate use disorder Cannabis use disorder PLAN: -Would recommend the following medication changes/additions: We will order Thorazine and Vistaril IM and by mouth as needed for agitation/anxiety. We will limit the use of benzodiazepines as there is a concern that the patient may use or smuggle narcotic medications which places her at increased risk of respiratory depression. -Continue 1:1 sitter for safety -Will continue to follow along 11/17/21 13:25
[2021-11-17] MEDS: HYDROcodone/APAP 5-325MG 1 EACH TAB PO PRN (13:29)
[2021-11-17] MEDS: hydrOXYzine pamoate 25 MG CAP PO PRN ×2 (13:29→22:12)
[2021-11-17 15:55] LABS: Hepatitis A Antibody IgM Nonreactive (Nonreactive); Hepatitis B Surface Antigen Nonreactive (Nonreactive); Hepatitis C IgG Antibody Reactive (Nonreactive)
[2021-11-17] MEDS ORDERED: IV FLUID CONTINUATION 1,000 ML IV ONE (16:41)
[2021-11-17 17:15] LABS: HIV 2 AB Non-Reactive (Non-Reactive); HIV AB P24 Non-Reactive (Non-Reactive); HIV P24 AG Non-Reactive (Non-Reactive)
[2021-11-17] MEDS ORDERED: KETAMINE 10 MG/ML 20 ML VIAL ONE (18:28)
[2021-11-17] MEDS ORDERED: PROPOFOL 10 MG/ML 20 ML VIAL IV ONE (18:28)
[2021-11-17] MEDS ORDERED: MIDAZOLAM 2 MG/2 ML VIAL ONE (18:28)
[2021-11-17] MEDS ORDERED: fentaNYL (PF) 50 MCG/ML 2 ML AMP ONE (18:28)
[2021-11-17] MEDS ORDERED: LACTATED RINGERS 1,000 ML IV ONE (19:02)
[2021-11-17] MEDS ORDERED: SENNOSIDES-DOCUSATE SODIUM 1 EACH TAB PO PRN (19:31)
[2021-11-17] MEDS ORDERED: HYDROmorphone 1 MG/ML 1 ML SYRINGE IVP ONE ×3 (19:36→19:58)
[2021-11-17] MEDS: KETOROLAC 15 MG/ML 1 ML VIAL IVP PRN (19:36)
--- NOTE | 2021-11-17 19:46 | P.OP ---
Date of Procedure: 11/17/21 Preoperative Diagnosis: 1. Right [place] septic hip arthritis status post irrigation and debridement by outside physician with recurrent abscess and draining wound 2. History of IV drug abuse (Heroin) 3. Current every day cigarette smoker Postoperative Diagnosis: Same Procedure(s) Performed: 1. Irrigation debridement right hip (non-excisional debridement of nonviable skin and subcutaneous tissue) 2. Application of incisional wound VAC, right hip assistive 50 cm (incision measured 10 cm) Anesthesia: JIMENEZ Surgeon: Kendall Isaac Management Accounts Manager #1: Dru De La Cruz Estimated Blood Loss (ml): 50 Pathology: other (Deep cultures sent) Condition: stable Disposition: PACU Indications for Procedure: The patient is a 26-year-old female with multiple medical issues including IV drug abuse and being occurrent everyday cigarette smoker who is a history of right septic hip arthritis. She underwent irrigation and debridement of her right septic hip at [facility] by Dr. Turcios. She apparently left AGAINST MEDICAL ADVICE due to poor care received at [facility] for the patient. She came here yesterday and was found to have a draining wound over her right hip. An MRI was obtained which showed a large abscess communicating with the hip joint. She was admitted under the care of internal medicine. I recommended repeat irrigation and debridement with the patient. She understands the potential risks and complications of surgery including but certainly not limited to risk of continued or worsened infection, damage to local blood vessels or nerves, spread of infection, osteomyelitis, chronic pain, need for further surgery, DVT, PE, other medical complications, and possibly . She understands that she is much higher risk of having a complication due to her multiple medical problems and IV drug use. We also discussed that following surgery all follow- up will be with Dr. Turcios at [facility]. She understands that all issues related to the hip and request for pain medication will come from Dr. Turcios who is her primary hip surgeon. Operative Findings: Was a large abscess communicating down to the hip joint. There is purulent fluid which was swabbed and sent for culture Description of Procedure: The patient was identified in preop holding and the correct right hip was marked with my initials. I reviewed the consent form with the patient and all of her questions were answered. The patient was then brought back to the operating room by anesthesia. She was positioned on the OR table where a general anesthetic and preoperative antibiotics were given. All bony prominences were well-padded. A nonsterile drapes were applied. The right hip was then prepped and draped in the standard sterile fashion. Prior to starting surgery timeout was performed identifying the correct patient, operative extremity, and procedure. I began by making an incision over the prior scar from her anterior approach to the right hip. Incision was made with a scalpel and dissection was carried down carefully to the fascia. Immediately upon opening suture line in the fascia there was a large kim of purulent material. This was swabbed and sent for culture. Dissection was carried down to the hip. Nonviable subcutaneous tissue was removed using a non-excisional debridement. The hip appeared intact with no evidence of osteomyelitis. 3 L of sterile saline was then run through the wound using cystoscopy tubing. A deep drain was placed. The fascia was closed followed by the more superficial layers using all monofilament suture. The skin incision was reinforced with 3-0 nylon sutures. An incisional wound VAC was placed. All drapes were taken down and the instrument, sponge, and sharp counts were correct. The patient was then transferred off the operating room table and brought to recovery having tolerated the procedure well. Plan: The patient can weight-bear as tolerated on her right leg. She will need IV antibiotics and a PICC line per infectious disease. We will pull her drain in 48 hours. She will need follow-up as an outpatient with Dr. Turcios for suture and wound VAC removal 1 week from today. All follow-up in request for pain medication will be with Dr. Turcios's office who is her primary hip surgeon from her initial surgery.
[2021-11-17] MEDS: MORPHINE SULFATE ER 15 MG TABLET PO SCH (22:11)
[2021-11-17] MEDS: MELATONIN 3 MG TABLET PO PRN (22:12)
[2021-11-18 01:27] LABS: Hepatitis B Core IgM Reactive (Nonreactive)
[2021-11-18] MEDS: HYDROcodone/APAP 5-325MG 1 EACH TAB PO PRN ×4 (01:44→17:50)
[2021-11-18] MEDS: KETOROLAC 15 MG/ML 1 ML VIAL IVP PRN ×2 (01:44→08:46)
[2021-11-18] MEDS: VANCOMYCIN 1,250 MG in SODIUM CHLORIDE 0.9% 250 ML IVPB SCH ×3 (06:19→22:12)
[2021-11-18] MEDS: hydrOXYzine pamoate 25 MG CAP PO PRN ×2 (07:56→14:10)
[2021-11-18] MEDS: ENOXAPARIN 40 MG/0.4 ML SYRINGE SQ SCH (07:56)
[2021-11-18] MEDS: MORPHINE SULFATE ER 15 MG TABLET PO SCH ×2 (07:57→20:06)
[2021-11-18] MEDS ORDERED: VANCOMYCIN TROUGH DUE 1 EACH MISC MISCELLANE ONE ×2 (09:00→21:00)
[2021-11-18 09:18] LABS: Albumin 2.8 g/dL (3.8-4.9); Albumin/Globulin Ratio 0.74 (1.60-3.17); Anion Gap 10.6 mmol/L (10.00-18.00); BUN/Creat Ratio 15.8 Ratio (12.00-20.00); Blood Urea Nitrogen 7.9 mg/dL (9.0-27.0); Calcium 8.6 mg/dL (8.7-10.3); Carbon Dioxide 24.4 mmol/L (20.0-27.5); Globulin 3.8 g/dL (1.6-3.3); Non-African American GFR(CKD) 135.5 (60.0-200.0); Potassium 4.9 mmol/L (3.5-5.5); Total Bilirubin 0.3 mg/dL (0.30-1.20); Total Protein 6.6 g/dL (6.2-8.2)
--- NOTE | 2021-11-18 10:55 | P.PN ---
Subjective Progress Note Date: 11/18/21 This patient is a 26-year-old female with a history of IVDA who is status-post irrigation and debridement for septic arthritis right modoc hip. Today is post-operative day #1. Patient is examined bedside. She states she is experiencing mild pain in the hip. She otherwise feels ok. Psych was consulted yesterday, sitter is now bedside. Patient complains of mild nausea. She has no additional complaints. She denies fevers, chills. Vital signs stable. Objective - Vital Signs Vital signs: Vital Signs Temp 98.6 F 11/18/21 08:11 Pulse 97 11/18/21 08:11 Resp 16 11/18/21 08:11 BP 124/75 11/18/21 08:11 Pulse Ox 98 11/18/21 08:11 FiO2 Intake & Output 11/17/21 11/18/21 11/18/21 18:59 06:59 18:59 Intake Total 700 200 Output Total 300 10 Balance 700 -100 -10 Intake: IV 700 200 Output: Drainage 10 Right Hip 10 Urine 200 Estimated Blood Loss 100 Other: Voiding Method Toilet # Voids 1 - Exam On examination, patient is lying in bed in no apparent distress. She is alert and orientated x3. On inspection of the right hip, there is a hemovac drain in place and a Prevena wound vac in place. Prevena wound vac has a good seal at this time. Mild swelling of the thigh, thigh is soft and compressible. She has good strength and ROM of the right ankle. Motor and sensory function intact RLE. RLE warm and well perfused. Calf non-tender. - Labs CBC & Chem 7: 11/17/21 09:01 11/18/21 06:29 Labs: Abnormal Lab Results - Last 24 Hours (Table) 11/17/21 11/17/21 11/18/21 Range/Units 09:01 09:01 06:29 ESR 83 H (0-20) mm/hr BUN 7.9 L (9.0-27.0) mg/dL Creatinine 0.5 L (0.6-1.5) mg/dL Calcium 8.6 L (8.7-10.3) mg/dL Albumin 2.8 L (3.8-4.9) g/dL Globulin 3.8 H (1.6-3.3) g/dL Albumin/Globulin Ratio 0.74 L (1.60-3.17) g/dL Hep B Core IgM Ab Reactive A (Nonreactive) Hep C IgG Ab Reactive A (Nonreactive) Microbiology - Last 24 Hours (Table) 11/16/21 10:27 Gram Stain - Final Hip - Right Wound Culture - Final 11/17/21 19:13 Gram Stain - Preliminary Hip - Right Tissue Culture - Preliminary 11/16/21 07:05 Blood Culture - Preliminary Blood No Growth after 48 hours 11/17/21 19:13 Anaerobic Culture - Preliminary Hip - Right 11/17/21 19:13 Wound Culture - Preliminary Hip - Right 11/16/21 16:38 Blood Culture - Preliminary Blood No Growth after 24 hours Assessment and Plan Assessment: Right hip septic arthritis s/p right hip irrigation and debridement on 11/17/21. Post-operative day #1. History recent I&D right hip 11/07/21 at outside facility, patient left AMA Plan: - Weight bear to tolerance on right lower extremity with a walker. PT consulted. - Keep wound vac and hemovac drain in place. - Will follow intra-op cultures. Antibiotics per infectious disease. - Pain management as needed. - DVT prophylaxis per admitting team. - Patient will require follow-up with primary hip surgeon Dr. Turcios on discharge.
[2021-11-18 11:06] LABS: Basophils # (A) 0.03 X 10*3/uL (0.00-0.10); Basophils % (A) 0.5 %; Eosinophils # (A) 0.38 X 10*3/uL (0.04-0.35); Eosinophils % (A) 6.5 %; HCT 23.4 % (37.2-46.3); HGB 8.6 g/dL (12.0-15.0); Immature Grans, Automated 0.3 %; Lymphocytes # (A) 1.89 X 10*3/uL (0.90-5.00); Lymphocytes % (A) 32.1 %; MCH 33.7 pg (27.0-32.0); MCHC 36.8 g/dL (32.0-37.0); MCV 91.8 fL (80.0-97.0); Mean Platelet Volume 9.7 fL (9.5-12.2); Monocytes # (A) 0.62 X 10*3/uL (0.20-1.00); Monocytes % (A) 10.5 %; NRBC Per 100 WBC 0 /100 WBCS (0.0-0.0); Neutrophils # (A) 2.95 X 10*3/uL (1.80-7.70); Neutrophils % (A) 50.1 %; Platelet Count 376 X 10*3/uL (140-440); RBC 2.55 X 10*6/uL (4.10-5.20); RDW 12.9 % (11.5-14.5); WBC 5.89 X 10*3/uL (4.50-10.00)
[2021-11-18] MEDS: TRIMETHOBENZAMIDE 100 MG/ML 2 ML VIAL IM PRN ×2 (12:10→17:57)
[2021-11-18] MEDS ORDERED: LORazepam 1 MG TAB PO PRN (12:42)
[2021-11-18] MEDS ORDERED: LORazepam 1 MG TAB PO SCH (12:45)
[2021-11-18] MEDS: SODIUM CHLORIDE 0.9% 1,000 ML IV SCH (13:03)
--- NOTE | 2021-11-18 13:41 | P.PN ---
Progress Note - Text Progress Note Date: 11/18/21 Interval History: Patient was seen resting in bed and was directable and agreeable to speak with this provider entered the room., The patient expresses that she is undergoing opiate withdrawal and is in significant pain and discomfort. The patient appears to be medication seeking at this time and is requesting methadone or other opiates despite the fact that she is currently receiving Dilaudid for pain. The patient is not reporting any suicidal or homicidal ideation, i ntention. She denies any paranoia or other delusions. She remains future oriented with a desire to go to [place] rehabilitation after discharge. The patient reports that she got into the use of opiates through fentanyl by her father. She reports that her father was an opiate addict. She then transitioned from fentanyl to heroin. She reports her last use was approximately 3 days ago. Mental Status Exam: General Appearance: Patient appears to be stated age is alert, directable, and intermittently cooperative. Behavior: Patient is lying down in bed and displays elevated psychomotor a ctivity. Speech: Patient's speech is fluent and nonpressured. Mood/Affect: Mood is "not good, I'm in withdrawal." Affect is malaised. Suicidality/Homicidality: Patient denies any suicidal or homicidal ideation, intention, and/or plan. Perceptions: Patient denies any visual hallucinations and denies any auditory hallucinations Though content/process: Fixated on medications. Memory and concentration: AOX3, grossly intact for the purposes of this session Judgment and insight: Poor Vital Signs Temp 98.6 F 11/18/21 08:11 Pulse 97 11/18/21 08:11 Resp 16 11/18/21 08:11 BP 124/75 11/18/21 08:11 Pulse Ox 98 11/18/21 08:11 FiO2 Intake & Output 11/17/21 11/18/21 11/18/21 18:59 06:59 18:59 Intake Total 700 200 Output Total 300 10 Balance 700 -100 -10 Intake: IV 700 200 Output: Drainage 10 Right Hip 10 Urine 200 Estimated Blood Loss 100 Other: Voiding Method Toilet # Voids 1 Laboratory Results - Last 24 Hours 11/17/21 11/17/21 11/17/21 09:01 09:01 09:01 WBC RBC Hgb Hct MCV MCH MCHC RDW Plt Count MPV Immature Gran % (Auto) Absolute Nucleated RBC Neutrophils % Lymphocytes % Monocytes % Eosinophils % Basophils % Immature Gran # Neutrophils # Lymphocytes # Monocytes # Eosinophils # Basophils # NRBC/100 WBC Diff Sodium Potassium Chloride Carbon Dioxide Anion Gap BUN Creatinine Est GFR (CKD-EPI)AfAm Est GFR (CKD-EPI)NonAf BUN/Creatinine Ratio Glucose Calcium Total Bilirubin AST ALT Alkaline Phosphatase Total Protein Albumin Globulin Albumin/Globulin Ratio HCG, Qual Not Detected Hepatitis A IgM Ab Nonreactive Hep Bs Antigen Nonreactive Hep B Core IgM Ab Reactive A Hep C IgG Ab Reactive A HIV-1 Antibody Non-Reactive HIV Ag/Ab Interpret HIV p24 Antibody Non-Reactive HIV-2 Antibody Non-Reactive HIV P24 Antigen Non-Reactive 11/18/21 11/18/21 06:29 06:29 WBC 5.89 RBC 2.55 L Hgb 8.6 L Hct 23.4 L MCV 91.8 MCH 33.7 H MCHC 36.8 RDW 12.9 Plt Count 376 MPV 9.7 Immature Gran % (Auto) 0.3 Absolute Nucleated RBC 0 Neutrophils % 50.1 Lymphocytes % 32.1 Monocytes % 10.5 Eosinophils % 6.5 Basophils % 0.5 Immature Gran # 0.02 Neutrophils # 2.95 Lymphocytes # 1.89 Monocytes # 0.62 Eosinophils # 0.38 H Basophils # 0.03 NRBC/100 WBC Diff 0 Sodium 138 Potassium 4.9 Chloride 103 Carbon Dioxide 24.4 Anion Gap 10.60 BUN 7.9 L Creatinine 0.5 L Est GFR (CKD-EPI)AfAm 157.0 Est GFR (CKD-EPI)NonAf 135.5 BUN/Creatinine Ratio 15.80 Glucose 97 Calcium 8.6 L Total Bilirubin 0.30 AST 22 ALT 18 Alkaline Phosphatase 78 Total Protein 6.6 Albumin 2.8 L Globulin 3.8 H Albumin/Globulin Ratio 0.74 L HCG, Qual Hepatitis A IgM Ab Hep Bs Antigen Hep B Core IgM Ab Hep C IgG Ab HIV-1 Antibody HIV Ag/Ab Interpret HIV p24 Antibody HIV-2 Antibody HIV P24 Antigen Assessment IV drug abuse - heroin Methamphetamine use disorder Opiate use disorder Cannabis use disorder Plan: -Patient does not present with criteria for inpatient psychiatric admission. The patient's primary diagnosis is substance abuse. The patient reports that she is willing to go to rehabilitation for her polysubstance abuse. -Continue with your medical management. -Would recommend the following medication changes/additions: For acute opiate withdrawal we will consider somatic treatment: Trazodone, zofran, senna, imodium. Trazodone 150 mg at bedtime for insomnia Thorazine and Vistaril IM and by mouth and by mouth as needed for agitation/anxiety. Discontinue Ativan as patient is already receiving morphine and Dilaudid. -Continue 1:1 sitter for safety -Psychiatry will sign off at this time. Please call us with any questions or reconsult us if necessary.
[2021-11-18] MEDS: NICOTINE 21MG/24HR PATCH TRANSDERM SCH (14:10)
[2021-11-18] MEDS: ONDANSETRON 4 MG/2 ML VIAL IVP PRN ×2 (14:10→20:05)
--- NOTE | 2021-11-18 14:52 | P.PN ---
Subjective History of Present Illness H&P Date: 11/16/21 26 years old female with a history of IV drug abuse who was recently seen at [facility] for septic arthritis of right hip joint and apparently had incision and drainage of the right hip on 11/07/2021. Patient left AGAINST MEDICAL ADVICE before intravenous antibiotics arrangement could be done. Apparently over there patient was on Ancef and apparently was advised to have IV Dalvance for 6 weeks. She left AGAINST MEDICAL ADVICE before the antibiotic arrangement could be done. Patient presented to [facility] emergency with right hip pain, she reports that she is currently homeless and has no place to go, she does not have any source of income and apparently was with some friend who recently asked her to move out of her place. She does not want to go back to [facility] as she feels she was not treated in a good way over there as per patient. Patient reporting right hip pain with drainage from the right hip incision area. She doesn't report any chest pain fevers shortness of breath. She was seen by orthopedics in emergency department here who recommended getting an MRI of the right hip with and without contrast also possible plan for wound VAC placement on the right hip incision area, further surgical intervention plan will be dependent on MRI results. Infection disease also consulted. Hospital medicine consulted for admission to hospital for further care Interval history: Patient was examined at the bedside. She is alert oriented 3. She is anxious Status post right hip irrigation and debridement with wound VAC placement November 17. Otherwise no acute changes overnight Physical examination: General: non toxic, no distress, appears at stated age Derm: warm, dry Head: atraumatic, normocephalic, symmetric Eyes: EOMI, no lid lag, anicteric sclera Mouth: no lip lesion, mucus membranes moist Cardiovascular: S1S2 reg, no murmur, positive posterior tibial pulse bilateral, Lungs: CTA bilateral, no rhonchi, no rales , no accessory muscle use Abdominal: soft, nontender to palpation, no guarding, no appreciable orga nomegaly Ext: no gross muscle atrophy, no edema, no contractures Neuro: CN II-XI grossly intact, no focal neuro deficits Psych: Alert, oriented, appropriate affect Assessment and plan: Right hip Septic arthritis Status post right hip irrigation debridement with wound VAC placement November 17 MRI showed evidence of right hip septic arthritis with large irregular sinus tract extending from femoral neck to the skin. Continue IV antibiotics patient will be started on ceftriaxone and vancomycin Obtain blood cultures Infection disease consulted Pain control History of IV drug abuse Patient reports history of IV drug abuse. Currently actively using heroin and methamphetamine. Check hepatitis panel and HIV. Agitation -Consult psychiatry. -Pain control with IV hydromorphone and long-acting MS Contin DVT prophylaxis: Subcutaneous heparin CODE STATUS: Full code Disposition plan: To be determined Objective - Vital Signs Vital signs: Vital Signs Temp 98 F 11/18/21 14:06 Pulse 70 11/18/21 14:06 Resp 16 11/18/21 14:06 BP 118/76 11/18/21 14:06 Pulse Ox 97 11/18/21 14:06 FiO2 Intake & Output 11/17/21 11/18/21 11/18/21 18:59 06:59 18:59 Intake Total 700 200 Output Total 300 10 Balance 700 -100 -10 Intake: IV 700 200 Output: Drainage 10 Right Hip 10 Urine 200 Estimated Blood Loss 100 Other: Voiding Method Toilet # Voids 1 - Labs CBC & Chem 7: 11/18/21 06:29 11/18/21 06:29 Labs: Abnormal Lab Results - Last 24 Hours (Table) 11/17/21 11/18/21 11/18/21 Range/Units 09:01 06:29 06:29 RBC 2.55 L (4.10-5.20) X 10*6/uL Hgb 8.6 L (12.0-15.0) g/dL Hct 23.4 L (37.2-46.3) % MCH 33.7 H (27.0-32.0) pg Eosinophils # 0.38 H (0.04-0.35) X 10*3/uL BUN 7.9 L (9.0-27.0) mg/dL Creatinine 0.5 L (0.6-1.5) mg/dL Calcium 8.6 L (8.7-10.3) mg/dL Albumin 2.8 L (3.8-4.9) g/dL Globulin 3.8 H (1.6-3.3) g/dL Albumin/Globulin Ratio 0.74 L (1.60-3.17) g/dL Hep B Core IgM Ab Reactive A (Nonreactive) Hep C IgG Ab Reactive A (Nonreactive) Microbiology - Last 24 Hours (Table) 11/16/21 10:27 Gram Stain - Final Hip - Right Wound Culture - Final 11/17/21 19:13 Gram Stain - Preliminary Hip - Right Tissue Culture - Preliminary 11/16/21 07:05 Blood Culture - Preliminary Blood No Growth after 48 hours 11/17/21 19:13 Anaerobic Culture - Preliminary Hip - Right 11/17/21 19:13 Wound Culture - Preliminary Hip - Right 11/16/21 16:38 Blood Culture - Preliminary Blood No Growth after 24 hours
[2021-11-18] MEDS: traZODone HCL 50 MG TAB PO SCH (20:06)
[2021-11-18] MEDS: LORazepam 1 MG TAB PO PRN (20:06)
[2021-11-19] MEDS: HYDROcodone/APAP 5-325MG 1 EACH TAB PO PRN ×2 (00:03→15:06)
[2021-11-19] MEDS: hydrOXYzine pamoate 25 MG CAP PO PRN ×2 (00:03→08:28)
[2021-11-19] MEDS: TRIMETHOBENZAMIDE 100 MG/ML 2 ML VIAL IM PRN (00:05)
[2021-11-19] MEDS: VANCOMYCIN 1,250 MG in SODIUM CHLORIDE 0.9% 250 ML IVPB SCH (05:52)
[2021-11-19] MEDS: SODIUM CHLORIDE 0.9% 1,000 ML IV SCH ×2 (05:53→19:34)
--- NOTE | 2021-11-19 08:25 | P.CONS ---
History of Present Illness - Reason for Consult Consult date: 11/17/21 Right hip septic joint Requesting physician: Tete Aden - Chief Complaint Right hip pain x days - History of Present Illness Patient is a 26-year-old female with a past medical history significant for IV drug use with a recent admission to the [facility] with right hip pain has been diagnosed with right hip septic arthritis patient is status post surgical I&D and culture which was positive for strep patient was treated with IV cefazolin patient has signed out AGAINST MEDICAL ADVICE x2 and is now presenting to this hospital concerning for pain to the right hip area patient described the pain to be more of a sharp in nature almost 10 out of 10 no radiation patient denies having any chest pain or shortness of the cough no nausea no midline abdominal pain no diarrhea on presentation to the hospital the patient did have a low-grade fever of 99.2 F patient did have a normal white count kidney function has been normal urine hCG was negative patient did have x-ray of the hip no acute abnormality MRI of the hip irregular large sinus tract developing from the skin surface to the femoral neck and hip joint with wall enhancement consistent with an abscess patient has been evaluated by orthopedic and the patient is scheduled for surgical debridement later this evening infectious disease was consulted for further management of antibiotic therapy Review of Systems Positive point has been mentioned in the HPI rest of the systems are negative Past Medical History Past Medical History: Asthma Additional Past Medical History / Comment(s): diarrhea, opiate abuse History of Any Multi-Drug Resistant Organisms: None Reported Past Surgical History: Appendectomy, Ear Surgery Additional Past Surgical History / Comment(s): tubes in ears a child x4. Past Anesthesia/Blood Transfusion Reactions: No Reported Reaction Past Psychological History: ADD/ADHD, Anxiety, Panic Disorder Smoking Status: Current every day smoker Past Alcohol Use History: None Reported Past Drug Use History: Heroin, IV Drug Use, Marijuana, Methamphetamine, Opiates - Past Family History Mother History Unknown: Yes Family Medical History: No Reported History Father Additional Family Medical History / Comment(s): ADD, addiction Medications and Allergies Home Medications Medication Instructions Recorded Confirmed Type No Known Home Medications 11/09/20 11/16/21 History Allergies Allergy/AdvReac Type Severity Reaction Status Date / Time No Known Allergies Allergy Verified 11/16/21 10:15 Physical Exam Vitals: Vital Signs Temp Pulse Pulse Resp BP BP Pulse Ox 11/17/21 02:00 98.1 F 89 16 117/59 100 11/17/21 00:10 18 11/16/21 23:47 99.0 F 83 16 104/64 97 11/16/21 19:50 99.2 F 94 16 109/77 100 11/16/21 19:09 99.2 F 85 16 105/64 97 11/16/21 19:08 99.2 F 86 16 105/64 98 11/16/21 15:00 98 18 110/68 98 Intake and Output 11/16/21 11/17/21 11/17/21 22:59 06:59 14:59 Intake Total 200 Output Total 150 Balance 200 -150 Intake: Oral 200 Output: Urine 150 GENERAL DESCRIPTION: Middle-aged male lying in bed, no distress. No tachypnea or accessory muscle of respiration use. HEENT: Shows Pallor , no scleral icterus. Oral mucous membrane is dry. No pharyngeal erythema or thrush NECK: Trachea central, no thyromegaly. LUNGS: Unlabored breathing. Clear to auscultation anteriorly. No wheeze or crackle. HEART: S1, S2, regular rate and rhythm. No loud murmur ABDOMEN: Soft, no tenderness , guarding or rigidity, no organomegaly EXTREMITIES: No edema of feet. Right hip wound is currently covered with a wound VAC SKIN: No rash, no masses palpable. NEUROLOGICAL: The patient is awake, alert, oriented x3, mood and affect normal. Results CBC & Chem 7: 11/18/21 06:29 11/18/21 06:29 Labs: Abnormal Lab Results - Last 24 Hours (Table) 11/17/21 11/17/21 11/17/21 Range/Units 02:10 05:50 05:50 RBC 3.28 L (4.10-5.20) X 10*6/uL Hgb 9.4 L (12.0-15.0) g/dL Hct 30.0 L (37.2-46.3) % MCHC 31.3 L (32.0-37.0) g/dL Plt Count 465 H (140-440) X 10*3/uL Eosinophils # 0.45 H (0.04-0.35) X 10*3/uL Sodium (137-145) mmol/L BUN 8.2 L (9.0-27.0) mg/dL Creatinine 0.5 L (0.6-1.5) mg/dL Glucose 119 H (70-110) mg/dL Calcium 8.6 L (8.7-10.3) mg/dL C-Reactive Protein (<1.0) mg/dL Albumin (3.5-5.0) g/dL Urine Protein Trace H (Negative) 11/17/21 11/17/21 Range/Units 09:01 09:01 RBC 3.31 L (4.10-5.20) X 10*6/uL Hgb 10.0 L (12.0-15.0) g/dL Hct 30.3 L (37.2-46.3) % MCHC (32.0-37.0) g/dL Plt Count 498 H (140-440) X 10*3/uL Eosinophils # (0.04-0.35) X 10*3/uL Sodium 134 L (137-145) mmol/L BUN (9.0-27.0) mg/dL Creatinine 0.45 L (0.6-1.5) mg/dL Glucose 104 H (70-110) mg/dL Calcium (8.7-10.3) mg/dL C-Reactive Protein 4.5 H (<1.0) mg/dL Albumin 3.0 L (3.5-5.0) g/dL Urine Protein (Negative) Microbiology - Last 24 Hours (Table) 11/16/21 07:05 Blood Culture - Preliminary Blood No Growth after 24 hours 11/16/21 10:27 Gram Stain - Preliminary Hip - Right Wound Culture - Preliminary Assessment and Plan (1) Septic arthritis Current Visit: Yes Status: Acute Code(s): M00.9 - PYOGENIC ARTHRITIS, UNSPECIFIED SNOMED Code(s): 959968722 Plan: 1patient with right hip septic arthritis in this patient who did have history of IV drug use with a recent diagnosis of right hip septic arthritis status post I&D culture positive for strep subsequently leaving [facility] AGAINST MEDICAL ADVICE and is present to this hospital with noncompliance with her treatment and more interested in pain medication with MRI suggestive of developing abscess and is scheduled for I&D later this evening. 2we will wait for the repeat I&D and deep cultures to be finalized. 3for now continue with the vancomycin and Rocephin and antibiotic will be adjus charmaine further on the basis of repeat culture. We will follow on clinical condition and cultures to further adjust medication if needed Thank you for this consultation will follow this patient along with you
[2021-11-19] MEDS: MORPHINE SULFATE ER 15 MG TABLET PO SCH ×2 (08:27→20:24)
[2021-11-19] MEDS: NICOTINE 21MG/24HR PATCH TRANSDERM SCH (08:28)
[2021-11-19] MEDS: ENOXAPARIN 40 MG/0.4 ML SYRINGE SQ SCH (08:28)
[2021-11-19] MEDS: LORazepam 1 MG TAB PO PRN ×2 (08:37→16:49)
[2021-11-19] MEDS: ONDANSETRON 4 MG/2 ML VIAL IVP PRN ×3 (08:37→21:00)
[2021-11-19 11:09] LABS: Albumin 3.3 g/dL (3.8-4.9); Albumin/Globulin Ratio 0.85 (1.60-3.17); Anion Gap 11.7 mmol/L (10.00-18.00); BUN/Creat Ratio 12.8 Ratio (12.00-20.00); Blood Urea Nitrogen 6.4 mg/dL (9.0-27.0); Calcium 9.1 mg/dL (8.7-10.3); Carbon Dioxide 22.3 mmol/L (20.0-27.5); Globulin 3.9 g/dL (1.6-3.3); Non-African American GFR(CKD) 135.5 (60.0-200.0); Total Bilirubin 0.4 mg/dL (0.30-1.20); Total Protein 7.2 g/dL (6.2-8.2)
--- NOTE | 2021-11-19 11:21 | P.PN ---
Subjective History of Present Illness H&P Date: 11/16/21 26 years old female with a history of IV drug abuse who was recently seen at [facility] for septic arthritis of right hip joint and apparently had incision and drainage of the right hip on 11/07/2021. Patient left AGAINST MEDICAL ADVICE before intravenous antibiotics arrangement could be done. Apparently over there patient was on Ancef and apparently was advised to have IV Dalvance for 6 weeks. She left AGAINST MEDICAL ADVICE before the antibiotic arrangement could be done. Patient presented to [facility] emergency with right hip pain, she reports that she is currently homeless and has no place to go, she does not have any source of income and apparently was with some friend who recently asked her to move out of her place. She does not want to go back to [facility] as she feels she was not treated in a good way over there as per patient. Patient reporting right hip pain with drainage from the right hip incision area. She doesn't report any chest pain fevers shortness of breath. She was seen by orthopedics in emergency department here who recommended getting an MRI of the right hip with and without contrast also possible plan for wound VAC placement on the right hip incision area, further surgical intervention plan will be dependent on MRI results. Infection disease also consulted. Hospital medicine consulted for admission to hospital for further care Interval history: Patient was examined at the bedside. She is alert oriented 3. She is sleepy and seems to be comfortable no acute reported changes overnight Physical examination: General: non toxic, no distress, appears at stated age Derm: warm, dry Head: atraumatic, normocephalic, symmetric Eyes: EOMI, no lid lag, anicteric sclera Mouth: no lip lesion, mucus membranes moist Cardiovascular: S1S2 reg, no murmur, positive posterior tibial pulse bilateral, Lungs: CTA bilateral, no rhonchi, no rales , no accessory muscle use Abdominal: soft, nontender to palpation, no guarding, no appreciable organomegaly Ext: no gross muscle atrophy, no edema, no contractures Neuro: CN II-XI grossly intact, no focal neuro deficits Psych: Alert, oriented, appropriate affect Assessment and plan: Right hip Septic arthritis Status post right hip irrigation debridement with wound VAC placement November 17 MRI showed evidence of right hip septic arthritis with large irregular sinus tract extending from femoral neck to the skin. Continue IV antibiotics patient will be started on ceftriaxone and vancomycin Obtain blood cultures Past surgical wound culture still pending Infection disease consulted Pain control History of IV drug abuse Patient reports history of IV drug abuse. Currently actively using heroin and methamphetamine. Check hepatitis panel and HIV. Agitation -Consult psychiatry. -Pain control with IV hydromorphone and long-acting MS Contin DVT prophylaxis: Subcutaneous heparin CODE STATUS: Full code Disposition plan: To be determined Objective - Vital Signs Vital signs: Vital Signs Temp 98.6 F 11/19/21 08:00 Pulse 69 11/19/21 08:00 Resp 16 11/19/21 08:00 BP 125/79 11/19/21 08:00 Pulse Ox 98 11/19/21 08:00 FiO2 Intake & Output 11/18/21 11/19/21 11/19/21 18:59 06:59 18:59 Intake Total 300 Output Total 560 15 Balance -560 285 Intake: Intake, IV Titration 300 Amount Vancomycin 1,250 mg In 250 Sodium Chloride 0.9% 250 ml @ 125 mls/hr IVPB Q8H ANDREW Rx#:[id number] ceFAZolin 2 gm In Sodium 50 Chloride 0.9% 50 ml @ 100 mls/hr IVPB Q8H ANDREW Rx#: [id number] Output: Drainage 60 15 Right Hip 60 15 Urine 500 Other: Voiding Method Toilet # Voids 3 - Labs CBC & Chem 7: 11/18/21 06:29 11/19/21 08:27 Labs: Abnormal Lab Results - Last 24 Hours (Table) 11/19/21 Range/Units 08:27 Sodium 134 L (135-145) mmol/L BUN 6.4 L (9.0-27.0) mg/dL Creatinine 0.5 L (0.6-1.5) mg/dL Glucose 111 H (70-110) mg/dL AST 36 H (13-35) U/L Albumin 3.3 L (3.8-4.9) g/dL Globulin 3.9 H (1.6-3.3) g/dL Albumin/Globulin Ratio 0.85 L (1.60-3.17) g/dL Microbiology - Last 24 Hours (Table) 11/16/21 07:05 Blood Culture - Preliminary Blood No Growth after 72 hours 11/17/21 19:13 Gram Stain - Preliminary Hip - Right Tissue Culture - Preliminary 11/17/21 19:13 Gram Stain - Preliminary Hip - Right Wound Culture - Preliminary 11/16/21 16:38 Blood Culture - Preliminary Blood No Growth after 48 hours 11/16/21 10:27 Gram Stain - Final Hip - Right Wound Culture - Final
--- NOTE | 2021-11-19 11:24 | P.PN ---
Subjective Progress Note Date: 11/19/21 This patient is a 26-year-old female with a history of IVDA who is status-post irrigation and debridement for septic arthritis right [place] hip. Today is post-operative day #2. Patient is examined bedside. Patient states she is doing fine this morning with no new complaints. Hemovac drain and Prevena wound vac in place. Sitter bedside. Objective - Vital Signs Vital signs: Vital Signs Temp 98.6 F 11/19/21 08:00 Pulse 69 11/19/21 08:00 Resp 16 11/19/21 08:00 BP 125/79 11/19/21 08:00 Pulse Ox 98 11/19/21 08:00 FiO2 Intake & Output 11/18/21 11/19/21 11/19/21 18:59 06:59 18:59 Intake Total 300 Output Total 560 15 Balance -560 285 Intake: Intake, IV Titration 300 Amount Vancomycin 1,250 mg In 250 Sodium Chloride 0.9% 250 ml @ 125 mls/hr IVPB Q8H ANDREW Rx#:[id number] ceFAZolin 2 gm In Sodium 50 Chloride 0.9% 50 ml @ 100 mls/hr IVPB Q8H ANDREW Rx#: [id number] Output: Drainage 60 15 Right Hip 60 15 Urine 500 Other: Voiding Method Toilet # Voids 3 - Exam On examination, patient is lying in bed in no apparent distress. She is alert and orientated x3. On inspection of the right hip, there is a hemovac drain in place and a Prevena wound vac in place. Hemovac drain removed bedside. Prevena wound vac has a good seal at this time. Mild swelling of the thigh, thigh is soft and compressible. She has good strength and ROM of the right ankle. Motor and sensory function intact RLE. RLE warm and well perfused. Calf non-tender. - Labs CBC & Chem 7: 11/18/21 06:29 11/19/21 08:27 Labs: Abnormal Lab Results - Last 24 Hours (Table) 11/19/21 Range/Units 08:27 Sodium 134 L (135-145) mmol/L BUN 6.4 L (9.0-27.0) mg/dL Creatinine 0.5 L (0.6-1.5) mg/dL Glucose 111 H (70-110) mg/dL AST 36 H (13-35) U/L Albumin 3.3 L (3.8-4.9) g/dL Globulin 3.9 H (1.6-3.3) g/dL Albumin/Globulin Ratio 0.85 L (1.60-3.17) g/dL Microbiology - Last 24 Hours (Table) 11/16/21 07:05 Blood Culture - Preliminary Blood No Growth after 72 hours 11/17/21 19:13 Gram Stain - Preliminary Hip - Right Tissue Culture - Preliminary 11/17/21 19:13 Gram Stain - Preliminary Hip - Right Wound Culture - Preliminary 11/16/21 16:38 Blood Culture - Preliminary Blood No Growth after 48 hours 11/16/21 10:27 Gram Stain - Final Hip - Right Wound Culture - Final Assessment and Plan Assessment: Right hip septic arthritis s/p right hip irrigation and debridement on 11/17/21. Post-operative day #2. History recent I&D right hip 11/07/21 at outside facility, patient left AMA Plan: - Weight bear to tolerance on right lower extremity with a walker. PT consulted. - Keep wound vac in place. Hemovac drain removed bedside today. - Will follow intra-op cultures. Antibiotics per infectious disease. - Pain management as needed. - DVT prophylaxis per admitting team. - Patient will require follow-up with primary hip surgeon Dr. Turcios on discharge.
[2021-11-19 13:29] LABS: Basophils % (A) 0 %; Eosinophils # (A) 0.2 k/uL (0-0.7); Eosinophils % (A) 3 %; HCT 31.3 % (34.0-46.0); HGB 10.3 gm/dL (11.4-16.0); Lymphocytes # (A) 1.5 k/uL (1.0-4.8); Lymphocytes % (A) 18 %; MCH 29.6 pg (25.0-35.0); MCV 89.8 fL (80.0-100.0); Monocytes # (A) 0.5 k/uL (0-1.0); Monocytes % (A) 6 %; Neutrophils # (A) 6.3 k/uL (1.3-7.7); Neutrophils % (A) 73 %; Platelet Count 560 k/uL (150-450); RBC 3.48 m/uL (3.80-5.40); RDW 13.6 % (11.5-15.5); WBC 8.7 k/uL (3.8-10.6)
[2021-11-19] MEDS: traZODone HCL 50 MG TAB PO SCH (20:25)
[2021-11-20] MEDS: LORazepam 1 MG TAB PO PRN ×3 (00:29→15:13)
[2021-11-20] MEDS: HYDROmorphone 1 MG/ML 1 ML SYRINGE IM PRN ×2 (00:32→18:35)
[2021-11-20 07:12] LABS: Basophils % (A) 0 %; Eosinophils # (A) 0.2 k/uL (0-0.7); Eosinophils % (A) 2 %; HCT 31.6 % (34.0-46.0); Lymphocytes # (A) 1.2 k/uL (1.0-4.8); Lymphocytes % (A) 18 %; MCHC 34.7 g/dL (31.0-37.0); MCV 89.3 fL (80.0-100.0); Mean Platelet Volume 7.5; Monocytes # (A) 0.5 k/uL (0-1.0); Monocytes % (A) 7 %; Neutrophils % (A) 71 %; Platelet Count 588 k/uL (150-450); RBC 3.54 m/uL (3.80-5.40); RDW 14.1 % (11.5-15.5); WBC 7.1 k/uL (3.8-10.6)
[2021-11-20 07:27] LABS: ALT 19 U/L (4-34); AST 37 U/L (14-36); African American GFR (CKD) >90 (>60 ml/min/1.73 sqM); Albumin 3.5 g/dL (3.5-5.0); Albumin/Globulin Ratio 0.9; Alkaline Phosphatase 88 U/L (38-126); Anion Gap 7 mmol/L; Blood Urea Nitrogen 7 mg/dL (7-17); Calcium 8.9 mg/dL (8.4-10.2); Carbon Dioxide 25 mmol/L (22-30); Chloride 101 mmol/L (98-107); Glucose 103 mg/dL (74-99); Non-African American GFR(CKD) >90 (>60 ml/min/1.73 sqM); Potassium 4.3 mmol/L (3.5-5.1); Sodium 133 mmol/L (137-145); Total Bilirubin 0.3 mg/dL (0.2-1.3); Total Protein 7.5 g/dL (6.3-8.2)
[2021-11-20] MEDS: ENOXAPARIN 40 MG/0.4 ML SYRINGE SQ SCH (08:50)
[2021-11-20] MEDS: hydrOXYzine pamoate 25 MG CAP PO PRN ×2 (08:50→15:12)
[2021-11-20] MEDS: ONDANSETRON 4 MG/2 ML VIAL IVP PRN ×3 (08:50→22:22)
[2021-11-20] MEDS: NICOTINE 21MG/24HR PATCH TRANSDERM SCH (08:51)
[2021-11-20] MEDS: MORPHINE SULFATE ER 15 MG TABLET PO SCH ×2 (08:51→21:18)
[2021-11-20] MEDS: SODIUM CHLORIDE 0.9% 1,000 ML IV SCH ×3 (08:51→13:35)
[2021-11-20 12:35] VITALS: BMI 26.8
[2021-11-20] MEDS: HYDROcodone/APAP 5-325MG 1 EACH TAB PO PRN ×3 (12:49→23:57)
[2021-11-20 13:08] LABS: INR 1.1 (<1.2); Prothrombin Time 12.1 sec (9.0-12.0)
--- NOTE | 2021-11-20 13:37 | P.PN ---
Subjective History of Present Illness H&P Date: 11/16/21 26 years old female with a history of IV drug abuse who was recently seen at [facility] for septic arthritis of right hip joint and apparently had incision and drainage of the right hip on 11/07/2021. Patient left AGAINST MEDICAL ADVICE before intravenous antibiotics arrangement could be done. Apparently over there patient was on Ancef and apparently was advised to have IV Dalvance for 6 weeks. She left AGAINST MEDICAL ADVICE before the antibiotic arrangement could be done. Patient presented to [facility] emergency with right hip pain, she reports that she is currently homeless and has no place to go, she does not have any source of income and apparently was with some friend who recently asked her to move out of her place. She does not want to go back to [facility] as she feels she was not treated in a good way over there as per patient. Patient reporting right hip pain with drainage from the right hip incision area. She doesn't report any chest pain fevers shortness of breath. She was seen by orthopedics in emergency department here who recommended getting an MRI of the right hip with and without contrast also possible plan for wound VAC placement on the right hip incision area, further surgical intervention plan will be dependent on MRI results. Infection disease also consulted. Hospital medicine consulted for admission to hospital for further care Interval history: Patient was examined at the bedside. She is alert oriented 3. She is sleepy and seems to be comfortable no acute reported changes overnight Physical examination: General: non toxic, no distress, appears at stated age Derm: warm, dry Head: atraumatic, normocephalic, symmetric Eyes: EOMI, no lid lag, anicteric sclera Mouth: no lip lesion, mucus membranes moist Cardiovascular: S1S2 reg, no murmur, positive posterior tibial pulse bilateral, Lungs: CTA bilateral, no rhonchi, no rales , no accessory muscle use Abdominal: soft, nontender to palpation, no guarding, no appreciable organomegaly Ext: no gross muscle atrophy, no edema, no contractures Neuro: CN II-XI grossly intact, no focal neuro deficits Psych: Alert, oriented, appropriate affect Assessment and plan: Right hip Septic arthritis Status post right hip irrigation debridement with wound VAC placement November 17 MRI showed evidence of right hip septic arthritis with large irregular sinus tract extending from femoral neck to the skin. Continue IV antibiotics per infectious disease Obtain blood cultures Past surgical wound culture still pending Infection disease consulted Pain control History of IV drug abuse Patient reports history of IV drug abuse. Currently actively using heroin and methamphetamine. Check hepatitis panel and HIV. Agitation secondary to opioid withdrawal symptoms -Resolved -Consult psychiatry. -Pain control with IV hydromorphone and long-acting MS Contin DVT prophylaxis: Subcutaneous heparin CODE STATUS: Full code Disposition plan: To be determined Objective - Vital Signs Vital signs: Vital Signs Temp 98.9 F 11/20/21 07:25 Pulse 92 11/20/21 07:25 Resp 17 11/20/21 07:25 BP 127/77 11/20/21 07:25 Pulse Ox 97 11/20/21 07:25 FiO2 Intake & Output 11/19/21 11/20/21 11/20/21 18:59 06:59 18:59 Intake Total 1080 Balance 1080 Weight 68.765 kg Intake: Oral 1080 Other: Voiding Method Toilet # Voids 1 4 - Labs CBC & Chem 7: 11/20/21 06:15 11/20/21 06:15 Labs: Abnormal Lab Results - Last 24 Hours (Table) 11/20/21 11/20/21 11/20/21 Range/Units 06:15 06:15 12:36 RBC 3.54 L (3.80-5.40) m/uL Hgb 11.0 L (11.4-16.0) gm/dL Hct 31.6 L (34.0-46.0) % Plt Count 588 H (150-450) k/uL PT 12.1 H (9.0-12.0) sec Sodium 133 L (137-145) mmol/L Glucose 103 H (74-99) mg/dL AST 37 H (14-36) U/L Microbiology - Last 24 Hours (Table) 11/16/21 07:05 Blood Culture - Preliminary Blood No Growth after 96 hours 11/17/21 19:13 Gram Stain - Preliminary Hip - Right Tissue Culture - Preliminary 11/16/21 16:38 Blood Culture - Preliminary Blood No Growth after 72 hours 11/17/21 19:13 Gram Stain - Final Hip - Right Wound Culture - Final 11/17/21 19:13 Anaerobic Culture - Preliminary Hip - Right
--- NOTE | 2021-11-20 15:50 | P.PN ---
Subjective Progress Note Date: 11/20/21 This patient is a 26-year-old female with a history of IVDA who is status-post irrigation and debridement for septic arthritis right [place] hip. Today is post-operative day #3. Patient is examined bedside with Dr. Isaac. Patient states she is experiencing minimal pain in the right hip. No new complaints today. Objective - Vital Signs Vital signs: Vital Signs Temp 98.7 F 11/20/21 14:00 Pulse 95 11/20/21 14:00 Resp 16 11/20/21 14:00 BP 110/71 11/20/21 14:00 Pulse Ox 96 11/20/21 14:00 FiO2 Intake & Output 11/19/21 11/20/21 11/20/21 18:59 06:59 18:59 Intake Total 1080 Balance 1080 Weight 68.765 kg Intake: Oral 1080 Other: Voiding Method Toilet # Voids 1 4 - Exam On examination, patient is lying in bed in no apparent distress. She is alert and orientated x3. On inspection of the right hip, there is a hemovac drain in place and a Prevena wound vac in place. Wound vac removed and reveals a well healing incision with no active drainage. Intact nylon sutures, which are removed bedside. Mild erythema. Mild swelling of the thigh, thigh is soft and compressible. She has good strength and ROM of the right ankle. Motor and sensory function intact RLE. RLE warm and well perfused. Calf non-tender. New Optifoam dressing placed over incision. - Labs CBC & Chem 7: 11/20/21 06:15 11/20/21 06:15 Labs: Abnormal Lab Results - Last 24 Hours (Table) 11/20/21 11/20/21 11/20/21 Range/Units 06:15 06:15 12:36 RBC 3.54 L (3.80-5.40) m/uL Hgb 11.0 L (11.4-16.0) gm/dL Hct 31.6 L (34.0-46.0) % Plt Count 588 H (150-450) k/uL PT 12.1 H (9.0-12.0) sec Sodium 133 L (137-145) mmol/L Glucose 103 H (74-99) mg/dL AST 37 H (14-36) U/L Microbiology - Last 24 Hours (Table) 11/16/21 07:05 Blood Culture - Preliminary Blood No Growth after 96 hours 11/17/21 19:13 Gram Stain - Preliminary Hip - Right Tissue Culture - Preliminary 11/16/21 16:38 Blood Culture - Preliminary Blood No Growth after 72 hours 11/17/21 19:13 Gram Stain - Final Hip - Right Wound Culture - Final 11/17/21 19:13 Anaerobic Culture - Preliminary Hip - Right Assessment and Plan Assessment: Right hip septic arthritis s/p right hip irrigation and debridement on 11/17/21. Post-operative day #3. History recent I&D right hip 11/07/21 at outside facility, patient left AMA Plan: - Weight bear to tolerance on right lower extremity with a walker. PT consulted. - Prevena wound vac removed. New Optifoam dressing place, keep this dressing in place for at least 7 days. - Will follow intra-op cultures. Antibiotics per infectious disease. - Pain management as needed. - DVT prophylaxis per admitting team. - Patient will require follow-up with primary hip surgeon Dr. Turcios on discharge. We will sign off at this time.
[2021-11-20] MEDS: TRIMETHOBENZAMIDE 100 MG/ML 2 ML VIAL IM PRN ×2 (18:21→23:59)
[2021-11-20] MEDS: MELATONIN 3 MG TABLET PO PRN (21:18)
[2021-11-20] MEDS: traZODone HCL 50 MG TAB PO SCH (21:18)
--- NOTE | 2021-11-21 00:41 | P.PN ---
Subjective Progress Note Date: 11/18/21 Principal diagnosis: Right hip septic arthritis Patient is a 26-year-old female with past medical history significant for IV drug use with a recent admission to [facility] with right hip septic arthritis status post I&D also positive for Streptococcus and the patient left AMA 2 subsequently presented to this hospital with abnormal MRI concerning for abscess and is status post drainage. On today's evaluation that is 11/18/2021, the patient denies having any fever or any chills, the patient pain to the right hip area is currently controlled, patient denies having any chest pain shortness of breath or cough no abdominal pain or diarrhea Objective - Vital Signs Vital signs: Vital Signs Temp 98.6 F 11/18/21 08:11 Pulse 97 11/18/21 08:11 Resp 16 11/18/21 08:11 BP 124/75 11/18/21 08:11 Pulse Ox 98 11/18/21 08:11 FiO2 Intake & Output 11/17/21 11/18/21 11/18/21 18:59 06:59 18:59 Intake Total 700 200 Output Total 300 10 Balance 700 -100 -10 Intake: IV 700 200 Output: Drainage 10 Right Hip 10 Urine 200 Estimated Blood Loss 100 Other: Voiding Method Toilet # Voids 1 - Exam GENERAL DESCRIPTION: Middle-age female lying in bed in no distress RESPIRATORY SYSTEM: Unlabored breathing , decreased breath sounds at bases HEART: S1 S2 regular rate and rhythm , ABDOMEN: Soft , no tenderness EXTREMITIES: Right hip incision is dressed - Labs CBC & Chem 7: 11/20/21 06:15 11/20/21 06:15 Labs: Abnormal Lab Results - Last 24 Hours (Table) 11/17/21 11/18/21 11/18/21 Range/Units 09:01 06: 06:29 RBC 2.55 L (4.10-5.20) X 10*6/uL Hgb 8.6 L (12.0-15.0) g/dL Hct 23.4 L (37.2-46.3) % MCH 33.7 H (27.0-32.0) pg Eosinophils # 0.38 H (0.04-0.35) X 10*3/uL BUN 7.9 L (9.0-27.0) mg/dL Creatinine 0.5 L (0.6-1.5) mg/dL Calcium 8.6 L (8.7-10.3) mg/dL Albumin 2.8 L (3.8-4.9) g/dL Globulin 3.8 H (1.6-3.3) g/dL Albumin/Globulin Ratio 0.74 L (1.60-3.17) g/dL Hep B Core IgM Ab Reactive A (Nonreactive) Hep C IgG Ab Reactive A (Nonreactive) Microbiology - Last 24 Hours (Table) 11/16/21 10:27 Gram Stain - Final Hip - Right Wound Culture - Final 11/17/21 19:13 Gram Stain - Preliminary Hip - Right Tissue Culture - Preliminary 11/16/21 07:05 Blood Culture - Preliminary Blood No Growth after 48 hours 11/17/21 19:13 Anaerobic Culture - Preliminary Hip - Right 11/17/21 19:13 Wound Culture - Preliminary Hip - Right 11/16/21 16:38 Blood Culture - Preliminary Blood No Growth after 24 hours Assessment and Plan (1) Septic arthritis Current Visit: Yes Status: Acute Code(s): M00.9 - PYOGENIC ARTHRITIS, UNSPECIFIED SNOMED Code(s): 887769011 Plan: 1patient with right hip septic arthritis in this patient who did have history of IV drug use with a recent diagnosis of right hip septic arthritis status post I&D culture positive for strep subsequently leaving [facility] AGAINST MEDICAL ADVICE and is present to this hospital with noncompliance with her treatment and more interested in pain medication with MRI suggestive of developing abscess and is status post I&D and cultures are currently pending. 2we will wait for the repeat I&D and deep cultures to be finalized. 3patient to continue continue with the vancomycin and Rocephin and antibiotic will be adjusted further on the basis of repeat culture. Time with Patient: Less than 30
--- NOTE | 2021-11-21 00:43 | P.PN ---
Subjective Progress Note Date: 11/19/21 Principal diagnosis: Right hip septic arthritis Patient is a 26-year-old female with past medical history significant for IV drug use with a recent admission to [facility] with right hip septic arthritis status post I&D also positive for Streptococcus and the patient left AMA 2 subsequently presented to this hospital with abnormal MRI concerning for abscess and is status post drainage. On today's evaluation that is 11/19/2021, the patient continues to be febrile, the patient is slightly sleepy and lethargic today and didn't provide any history no vomiting or diarrhea was reported by nursing staff Objective - Vital Signs Vital signs: Vital Signs Temp 98.8 F 11/19/21 14:00 Pulse 87 11/19/21 14:00 Resp 15 11/19/21 14:00 BP 123/79 11/19/21 14:00 Pulse Ox 97 11/19/21 14:00 FiO2 Intake & Output 11/18/21 11/19/21 11/19/21 18:59 06:59 18:59 Intake Total 300 Output Total 560 15 Balance -560 285 Intake: Intake, IV Titration 300 Amount Vancomycin 1,250 mg In 250 Sodium Chloride 0.9% 250 ml @ 125 mls/hr IVPB Q8H ANDREW Rx#:[id number] ceFAZolin 2 gm In Sodium 50 Chloride 0.9% 50 ml @ 100 mls/hr IVPB Q8H ANDREW Rx#: [id number] Output: Drainage 60 15 Right Hip 60 15 Urine 500 Other: Voiding Method Toilet # Voids 3 2 - Exam GENERAL DESCRIPTION: Middle-age female lying in bed in no distress RESPIRATORY SYSTEM: Unlabored breathing , decreased breath sounds at bases HEART: S1 S2 regular rate and rhythm , ABDOMEN: Soft , no tenderness EXTREMITIES: Right hip incision is dressed - Labs CBC & Chem 7: 11/20/21 06:15 11/20/21 06:15 Labs: Abnormal Lab Results - Last 24 Hours (Table) 11/19/21 11/19/21 Range/Units 08:27 13:12 RBC 3.48 L (3.80-5.40) m/uL Hgb 10.3 L (11.4-16.0) gm/dL Hct 31.3 L (34.0-46.0) % Plt Count 560 H (150-450) k/uL Sodium 134 L (135-145) mmol/L BUN 6.4 L (9.0-27.0) mg/dL Creatinine 0.5 L (0.6-1.5) mg/dL Glucose 111 H (70-110) mg/dL AST 36 H (13-35) U/L Albumin 3.3 L (3.8-4.9) g/dL Globulin 3.9 H (1.6-3.3) g/dL Albumin/Globulin Ratio 0.85 L (1.60-3.17) g/dL Microbiology - Last 24 Hours (Table) 11/16/21 07:05 Blood Culture - Preliminary Blood No Growth after 72 hours 11/17/21 19:13 Gram Stain - Preliminary Hip - Right Tissue Culture - Preliminary 11/17/21 19:13 Gram Stain - Preliminary Hip - Right Wound Culture - Preliminary 11/16/21 16:38 Blood Culture - Preliminary Blood No Growth after 48 hours Assessment and Plan (1) Septic arthritis Current Visit: Yes Status: Acute Code(s): M00.9 - PYOGENIC ARTHRITIS, UNSPECIFIED SNOMED Code(s): 464744499 Plan: 1patient with right hip septic arthritis in this patient who did have history of IV drug use with a recent diagnosis of right hip septic arthritis status post I&D culture positive for strep subsequently leaving [facility] AGAINST MEDICAL ADVICE and is present to this hospital with noncompliance with her treatment and more interested in pain medication with MRI suggestive of developing abscess and is status post I&D and cultures are so far negative. 2we will discontinue vancomycin and Rocephin and start the patient on cefazolin 2 g every 8 hours depending upon previous culture Time with Patient: Less than 30
--- NOTE | 2021-11-21 00:44 | P.PN ---
Subjective Progress Note Date: 11/20/21 Principal diagnosis: Right hip septic arthritis Patient is a 26-year-old female with past medical history significant for IV drug use with a recent admission to [facility] with right hip septic arthritis status post I&D also positive for Streptococcus and the patient left AMA 2 subsequently presented to this hospital with abnormal MRI concerning for abscess and is status post drainage. On today's evaluation that is 11/20/2021, the patient denies any fever or chills, the patient is breathing comfortably on room air and denies any chest pain shortness of breath or cough no abdominal pain pain to the right hip is currently controlled Objective - Vital Signs Vital signs: Vital Signs Temp 98.9 F 11/20/21 07:25 Pulse 92 11/20/21 07:25 Resp 17 11/20/21 07:25 BP 127/77 11/20/21 07:25 Pulse Ox 97 11/20/21 07:25 FiO2 Intake & Output 11/19/21 11/20/21 11/20/21 18:59 06:59 18:59 Intake Total 1080 Balance 1080 Weight 68.765 kg Intake: Oral 1080 Other: Voiding Method Toilet # Voids 1 4 - Exam GENERAL DESCRIPTION: Middle-age female lying in bed in no distress RESPIRATORY SYSTEM: Unlabored breathing , decreased breath sounds at bases HEART: S1 S2 regular rate and rhythm , ABDOMEN: Soft , no tenderness EXTREMITIES: Right hip incision is dressed - Labs CBC & Chem 7: 11/20/21 06:15 11/20/21 06:15 Labs: Abnormal Lab Results - Last 24 Hours (Table) 11/19/21 11/20/21 11/20/21 Range/Units 13:12 06:15 06:15 RBC 3.48 L 3.54 L (3.80-5.40) m/uL Hgb 10.3 L 11.0 L (11.4-16.0) gm/dL Hct 31.3 L 31.6 L (34.0-46.0) % Plt Count 560 H 588 H (150-450) k/uL PT (9.0-12.0) sec Sodium 133 L (137-145) mmol/L Glucose 103 H (74-99) mg/dL AST 37 H (14-36) U/L 11/20/21 Range/Units 12:36 RBC (3.80-5.40) m/uL Hgb (11.4-16.0) gm/dL Hct (34.0-46.0) % Plt Count (150-450) k/uL PT 12.1 H (9.0-12.0) sec Sodium (137-145) mmol/L Glucose (74-99) mg/dL AST (14-36) U/L Microbiology - Last 24 Hours (Table) 11/16/21 07:05 Blood Culture - Preliminary Blood No Growth after 96 hours 11/17/21 19:13 Gram Stain - Preliminary Hip - Right Tissue Culture - Preliminary 11/16/21 16:38 Blood Culture - Preliminary Blood No Growth after 72 hours 11/17/21 19:13 Gram Stain - Final Hip - Right Wound Culture - Final 11/17/21 19:13 Anaerobic Culture - Preliminary Hip - Right Assessment and Plan (1) Septic arthritis Current Visit: Yes Status: Acute Code(s): M00.9 - PYOGENIC ARTHRITIS, UNSPECIFIED SNOMED Code(s): 472678470 Plan: 1patient with right hip septic arthritis in this patient who did have history of IV drug use with a recent diagnosis of right hip septic arthritis status post I&D culture positive for strep subsequently leaving [facility] AGAINST MEDICAL ADVICE and is present to this hospital with noncompliance with her treatment and more interested in pain medication with MRI suggestive of developing abscess and is status post I&D and cultures are so far negative. 2patient to continue with cefazolin 2 g every 8 hours, patient is a PICC line and that is 6 weeks of IV antibiotic therapy and rehab placement, not an ideal candidate for home IV antibiotics Time with Patient: Less than 30
[2021-11-21] MEDS: SODIUM CHLORIDE 0.9% 1,000 ML IV SCH ×2 (07:27→07:37)
[2021-11-21] MEDS: HYDROcodone/APAP 5-325MG 1 EACH TAB PO PRN ×3 (07:37→20:27)
[2021-11-21] MEDS: MORPHINE SULFATE ER 15 MG TABLET PO SCH ×2 (07:37→20:28)
[2021-11-21] MEDS: NICOTINE 21MG/24HR PATCH TRANSDERM SCH ×2 (07:38→07:42)
[2021-11-21] MEDS: ENOXAPARIN 40 MG/0.4 ML SYRINGE SQ SCH ×2 (07:38→07:42)
--- NOTE | 2021-11-21 13:49 | P.PN ---
Subjective History of Present Illness H&P Date: 11/16/21 26 years old female with a history of IV drug abuse who was recently seen at [facility] for septic arthritis of right hip joint and apparently had incision and drainage of the right hip on 11/07/2021. Patient left AGAINST MEDICAL ADVICE before intravenous antibiotics arrangement could be done. Apparently over there patient was on Ancef and apparently was advised to have IV Dalvance for 6 weeks. She left AGAINST MEDICAL ADVICE before the antibiotic arrangement could be done. Patient presented to [facility] emergency with right hip pain, she reports that she is currently homeless and has no place to go, she does not have any source of income and apparently was with some friend who recently asked her to move out of her place. She does not want to go back to [facility] as she feels she was not treated in a good way over there as per patient. Patient reporting right hip pain with drainage from the right hip incision area. She doesn't report any chest pain fevers shortness of breath. She was seen by orthopedics in emergency department here who recommended getting an MRI of the right hip with and without contrast also possible plan for wound VAC placement on the right hip incision area, further surgical intervention plan will be dependent on MRI results. Infection disease also consulted. Hospital medicine consulted for admission to hospital for further care Interval history: Patient was examined at the bedside. She is alert oriented 3. She is sleepy and seems to be comfortable no acute reported changes overnight Physical examination: General: non toxic, no distress, appears at stated age Derm: warm, dry Head: atraumatic, normocephalic, symmetric Eyes: EOMI, no lid lag, anicteric sclera Mouth: no lip lesion, mucus membranes moist Cardiovascular: S1S2 reg, no murmur, positive posterior tibial pulse bilateral, Lungs: CTA bilateral, no rhonchi, no rales , no accessory muscle use Abdominal: soft, nontender to palpation, no guarding, no appreciable organomegaly Ext: no gross muscle atrophy, no edema, no contractures Neuro: CN II-XI grossly intact, no focal neuro deficits Psych: Alert, oriented, appropriate affect Assessment and plan: Right hip Septic arthritis Status post right hip irrigation debridement with wound VAC placement November 17 MRI showed evidence of right hip septic arthritis with large irregular sinus tract extending from femoral neck to the skin. Continue IV cefazolin Previous hospitalization wound culture grew group B strep Continue with cefazolin 2 g every 8 hours, patient is a PICC line and that is 6 weeks of IV antibiotic therapy and rehab placement Pain control History of IV drug abuse Patient reports history of IV drug abuse. Currently actively using heroin and methamphetamine. Negative HIV Hepatitis C positive antibody -Pending hepatitis antigen qualitative and genotype Agitation secondary to opioid withdrawal symptoms -Resolved -Psychiatry signed off DVT prophylaxis: Subcutaneous heparin CODE STATUS: Full code Disposition plan: To be determined Objective - Vital Signs Vital signs: Vital Signs Temp 98.5 F 11/20/21 19:48 Pulse 85 11/20/21 19:48 Resp 16 11/20/21 19:48 BP 108/68 11/20/21 19:48 Pulse Ox 97 11/20/21 19:48 FiO2 Intake & Output 11/20/21 11/21/21 11/21/21 18:59 06:59 18:59 Intake Total 1250 1200 Output Total 400 Balance 850 1200 Weight 68.765 kg Intake: Intake, IV Titration 1250 1200 Amount Sodium Chloride 0.9% 1, 1200 1200 000 ml @ 100 mls/hr IV . Q10H ANDREW Rx#:[id number] ceFAZolin 2 gm In Sodium 50 Chloride 0.9% 50 ml @ 100 mls/hr IVPB Q8HR [facility] Rx# :[id number] Output: Emesis 400 Other: Voiding Method Toilet # Voids 3 # Bowel Movements 1 - Labs CBC & Chem 7: 11/20/21 06:15 11/20/21 06:15 Labs: Microbiology - Last 24 Hours (Table) 11/17/21 19:13 Gram Stain - Preliminary Hip - Right Tissue Culture - Preliminary 11/16/21 07:05 Blood Culture - Preliminary Blood No Growth after 120 hours 11/16/21 16:38 Blood Culture - Preliminary Blood No Growth after 96 hours
[2021-11-21] MEDS: NICOTINE GUM (POLACRILEX) 2 MG GUM BUCCAL PRN ×3 (13:58→20:29)
[2021-11-21] MEDS: LORazepam 1 MG TAB PO PRN (15:31)
[2021-11-21] MEDS: ONDANSETRON 4 MG/2 ML VIAL IVP PRN (15:55)
[2021-11-21] MEDS: hydrOXYzine pamoate 25 MG CAP PO PRN (17:15)
[2021-11-21 19:42] VITALS: RESP 18
[2021-11-21] MEDS: MELATONIN 3 MG TABLET PO PRN (20:37)
[2021-11-21] MEDS: traZODone HCL 50 MG TAB PO SCH (20:37)
[2021-11-22] MEDS: ONDANSETRON 4 MG/2 ML VIAL IVP PRN (00:59)
[2021-11-22] MEDS: HYDROcodone/APAP 5-325MG 1 EACH TAB PO PRN ×2 (01:42→09:16)
[2021-11-22] MEDS: LORazepam 1 MG TAB PO PRN (01:46)
[2021-11-22 02:08] VITALS: BP 134/76; PULSE 84; TEMP 98.4
[2021-11-22] MEDS: SODIUM CHLORIDE 0.9% 1,000 ML IV SCH ×2 (02:11→06:38)
--- NOTE | 2021-11-22 07:53 | P.PN ---
Subjective History of Present Illness H&P Date: 11/16/21 26 years old female with a history of IV drug abuse who was recently seen at [facility] for septic arthritis of right hip joint and apparently had incision and drainage of the right hip on 11/07/2021. Patient left AGAINST MEDICAL ADVICE before intravenous antibiotics arrangement could be done. Apparently over there patient was on Ancef and apparently was advised to have IV Dalvance for 6 weeks. She left AGAINST MEDICAL ADVICE before the antibiotic arrangement could be done. Patient presented to [facility] emergency with right hip pain, she reports that she is currently homeless and has no place to go, she does not have any source of income and apparently was with some friend who recently asked her to move out of her place. She does not want to go back to [facility] as she feels she was not treated in a good way over there as per patient. Patient reporting right hip pain with drainage from the right hip incision area. She doesn't report any chest pain fevers shortness of breath. She was seen by orthopedics in emergency department here who recommended getting an MRI of the right hip with and without contrast also possible plan for wound VAC placement on the right hip incision area, further surgical intervention plan will be dependent on MRI results. Infection disease also consulted. Hospital medicine consulted for admission to hospital for further care Interval history: Patient was examined at the bedside. She is alert oriented 3. She is sleepy and seems to be comfortable no acute reported changes overnight Physical examination: General: non toxic, no distress, appears at stated age Derm: warm, dry Head: atraumatic, normocephalic, symmetric Eyes: EOMI, no lid lag, anicteric sclera Mouth: no lip lesion, mucus membranes moist Cardiovascular: S1S2 reg, no murmur, positive posterior tibial pulse bilateral, Lungs: CTA bilateral, no rhonchi, no rales , no accessory muscle use Abdominal: soft, nontender to palpation, no guarding, no appreciable organomegaly Ext: no gross muscle atrophy, no edema, no contractures Neuro: CN II-XI grossly intact, no focal neuro deficits Psych: Alert, oriented, appropriate affect Assessment and plan: Right hip Septic arthritis Status post right hip irrigation debridement with wound VAC placement November 17 MRI showed evidence of right hip septic arthritis with large irregular sinus tract extending from femoral neck to the skin. Continue IV cefazolin Previous hospitalization wound culture grew group B strep Continue with cefazolin 2 g every 8 hours, patient is a PICC line and that is 6 weeks of IV antibiotic therapy and rehab placement Pain control History of IV drug abuse Patient reports history of IV drug abuse. Currently actively using heroin and methamphetamine. Negative HIV Hepatitis C positive antibody -Pending hepatitis antigen qualitative and genotype Agitation secondary to opioid withdrawal symptoms -Resolved -Psychiatry signed off DVT prophylaxis: Subcutaneous heparin CODE STATUS: Full code Disposition plan: To be determined Objective - Vital Signs Vital signs: Vital Signs Temp 98.4 F 11/22/21 02:00 Pulse 84 11/22/21 02:00 Resp 18 11/22/21 02:00 BP 134/76 11/22/21 02:00 Pulse Ox 99 11/22/21 02:00 FiO2 Intake & Output 11/21/21 11/22/21 11/22/21 18:59 06:59 18:59 Other: Voiding Method Toilet # Voids 7 - Labs CBC & Chem 7: 11/20/21 06:15 11/20/21 06:15 Labs: Microbiology - Last 24 Hours (Table) 11/17/21 19:13 Anaerobic Culture - Preliminary Hip - Right 11/16/21 16:38 Blood Culture - Preliminary Blood No Growth after 120 hours 11/17/21 19:13 Gram Stain - Preliminary Hip - Right Tissue Culture - Preliminary 11/16/21 07:05 Blood Culture - Preliminary Blood No Growth after 120 hours
[2021-11-22] MEDS: ENOXAPARIN 40 MG/0.4 ML SYRINGE SQ SCH (08:48)
[2021-11-22] MEDS: MORPHINE SULFATE ER 15 MG TABLET PO SCH (09:15)
--- NOTE | 2021-11-23 11:01 | P.DS ---
Providers Date of admission: 11/16/21 11:50 Expected date of discharge: 11/23/21 Attending physician: Du Best MD Consults: 11/16/21 11:50 Consult Physician Urgent Consulting Provider: Kendall Isaac Consult Reason/Comments: right hip septic joint, iv drug use Do you want consulting provider notified?: Yes Consult Physician Urgent Consulting Provider: Sanjeev Angulo Consult Reason/Comments: right hip septic joint, iv drug use Do you want consulting provider notified?: Yes 11/17/21 09:06 Consult Physician Urgent Consulting Provider: Anant Kirkland Consult Reason/Comments: agitation/ IVDA Do you want consulting provider notified?: Yes Primary care physician: Stated None Hospital Course: History of Present Illness H&P Date: 11/16/21 26 years old female with a history of IV drug abuse who was recently seen at [facility] for septic arthritis of right hip joint and apparently had incision and drainage of the right hip on 11/07/2021. Patient left AGAINST MEDICAL ADVICE before intravenous antibiotics arrangement could be done. Apparently over there patient was on Ancef and apparently was advised to have IV Dalvance for 6 weeks. She left AGAINST MEDICAL ADVICE before the antibiotic arrangement could be done. Patient presented to [facility] emergency with right hip pain, she reports that she is currently homeless and has no place to go, she does not have any source of income and apparently was with some friend who recently asked her to move out of her place. She does not want to go back to [facility] as she feels she was not treated in a good way over there as per patient. Patient reporting right hip pain with drainage from the right hip incision area. She doesn't report any chest pain fevers shortness of breath. She was seen by orthopedics in emergency department here who recommended getting an MRI of the right hip with and without contrast also pos sible plan for wound VAC placement on the right hip incision area, further surgical intervention plan will be dependent on MRI results. Infection disease also consulted. Hospital medicine consulted for admission to hospital for further care Physical examination: General: non toxic, no distress, appears at stated age Derm: warm, dry Head: atraumatic, normocephalic, symmetric Eyes: EOMI, no lid lag, anicteric sclera Mouth: no lip lesion, mucus membranes moist Cardiovascular: S1S2 reg, no murmur, positive posterior tibial pulse bilateral, Lungs: CTA bilateral, no rhonchi, no rales , no accessory muscle use Abdominal: soft, nontender to palpation, no guarding, no appreciable organomegaly Ext: no gross muscle atrophy, no edema, no contractures Neuro: CN II-XI grossly intact, no focal neuro deficits Psych: Alert, oriented, appropriate affect Detailed problem list: Right hip Septic arthritis Status post right hip irrigation debridement with wound VAC placement November 17 MRI showed evidence of right hip septic arthritis with large irregular sinus tract extending from femoral neck to the skin. Continue IV cefazolin Previous hospitalization wound culture grew group B strep Continue with cefazolin 2 g every 8 hours, patient is a PICC line and that is 6 weeks of IV antibiotic therapy and rehab placement Pain control History of IV drug abuse Patient reports history of IV drug abuse. Currently actively using heroin and methamphetamine. Negative HIV Hepatitis C positive antibody -Pending hepatitis antigen qualitative and genotype Agitation secondary to opioid withdrawal symptoms -Resolved -Psychiatry signed off DVT prophylaxis: Subcutaneous heparin CODE STATUS: Full code Disposition plan: Patient left AGAINST MEDICAL ADVICE 11/22/2021 Patient Condition at Discharge: Fair Plan - Discharge Summary Discharge Rx Participant: No New Discharge Prescriptions: No Action No Known Home Medications Discharge Medication List No Known Home Medications 11/09/20 [History] Follow up Appointment(s)/Referral(s): None,Stated [Primary Care Provider] - 1-2 days Discharge Disposition: Left Against Medical Advice
[2021-11-24 15:33] LABS: HCV Qualitative Result DETECTED (Not detected); HCV Quant Log 4.26 (<1.08)
== END 2021-11-22 12:43 | disposition left against medical advice (07) | DRG 549 ==
LOC: SUPCPDRO 04:53 → EC 04:53 → 5NMEDONC 11:50 → 4SSUR 17:50
PROVIDERS: ADMIT Internal Medicine; ATTEND Internal Medicine
PROC: 0JDL3ZZ Extraction of Right Upper Leg Subcutaneous Tissue and Fascia, Percutaneous Approach (ICD-10-PCS; principal; 2021-11-17 08:25)
DX: M00.251 Other streptococcal arthritis, right hip (principal); L02.415 Cutaneous abscess of right lower limb; F11.13 Opioid abuse with withdrawal; J45.909 Unspecified asthma, uncomplicated; F15.10 Other stimulant abuse, uncomplicated; B19.20 Unspecified viral hepatitis C without hepatic coma; F11.188 Opioid abuse with other opioid-induced disorder; F12.10 Cannabis abuse, uncomplicated; F17.210 Nicotine dependence, cigarettes, uncomplicated; R45.1 Restlessness and agitation; F41.0 Panic disorder [episodic paroxysmal anxiety]; F90.9 Attention-deficit hyperactivity disorder, unspecified type; Z53.29 Procedure and treatment not carried out because of patient's decision for other reasons; B95.1 Streptococcus, group B, as the cause of diseases classified elsewhere; M25.451 Effusion, right hip; R53.83 Other fatigue; Z62.29 Other upbringing away from parents; Z59.02 Unsheltered homelessness; Z90.89 Acquired absence of other organs; Z98.890 Other specified postprocedural states; Z81.8 Family history of other mental and behavioral disorders; Z81.4 Family history of other substance abuse and dependence; Z91.19 Patient's noncompliance with other medical treatment and regimen; Z56.0 Unemployment, unspecified; Z76.5 Malingerer [conscious simulation]
CPT/HCPCS: 36410; 36415; 73501; 76937; 80048; 80053; 80074; 80202; 81003; 81025; 84703; 85025; 85610; 85652; 86140; 87040; 87070; 87075; 87205; 87390; 87522; 87902; 96365; 96366; 96368; 99285

== ENCOUNTER 2021-12-08 07:55 | Emergency (ER) | payer OTHER ==
[2021-12-08 08:01] VITALS: TEMP 97.4
[2021-12-08] MEDS ORDERED: cefTRIAXone IN SWFI 1,000 MG/10 ML SYRINGE IVP STA (08:12)
[2021-12-08] MEDS ORDERED: VANCOMYCIN IV PER PHARMACY 1 EACH MISC MISCELLANE PRN (08:13)
[2021-12-08] MEDS ORDERED: SODIUM CHLORIDE 0.9% 500 ML 500 ML IV ONE (08:13)
[2021-12-08] MEDS ORDERED: KETOROLAC 15 MG/ML 1 ML VIAL IVP STA (08:13)
[2021-12-08] MEDS ORDERED: IBUPROFEN 400 MG TAB PO PRN (08:15)
[2021-12-08] MEDS ORDERED: NALOXONE 0.4 MG/ML 1 ML VIAL IV PRN (08:15)
[2021-12-08] MEDS ORDERED: SODIUM CHLORIDE 0.9% 1,000 ML IV SCH (08:15)
[2021-12-08] MEDS ORDERED: ACETAMINOPHEN TAB 325 MG TAB PO PRN (08:15)
[2021-12-08] MEDS ORDERED: VANCOMYCIN 1,250 MG in SODIUM CHLORIDE 0.9% 250 ML IVPB STA (08:18)
--- NOTE | 2021-12-08 08:38 | ED ---
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 Patient is unable to ambulate secondary to pain. She has history of IV drug use and was recently admitted for septic arthritis. Washout and wound VAC was placed and she was scheduled for prolonged IV antibiotics but left AGAINST MEDICAL ADVICE. No reported fever. - Related Data Home Medications Medication Instructions Recorded Confirmed No Known Home Medications 11/09/20 12/08/21 Allergies Allergy/AdvReac Type Severity Reaction Status Date / Time No Known Allergies Allergy Verified 12/08/21 08:19 Review of Systems ROS Statement: Those systems with pertinent positive or pertinent negative responses have been documented in the HPI. ROS Other: All systems not noted in ROS Statement are negative. Past Medical History Past Medical History: Asthma Additional Past Medical History / Comment(s): diarrhea, opiate abuse History of Any Multi-Drug Resistant Organisms: None Reported Past Surgical History: Appendectomy, Ear Surgery Additional Past Surgical History / Comment(s): tubes in ears a child x4. Past Anesthesia/Blood Transfusion Reactions: No Reported Reaction Past Psychological History: ADD/ADHD, Anxiety, Panic Disorder Smoking Status: Current every day smoker Past Alcohol Use History: None Reported Past Drug Use History: Heroin, IV Drug Use, Marijuana, Methamphetamine, Opiates - Past Family History Mother History Unknown: Yes Family Medical History: No Reported History Father Additional Family Medical History / Comment(s): ADD, addiction General Exam Limitations: no limitations General appearance: alert, in no apparent distress Head exam: Present: atraumatic, normocephalic Eye exam: Present: normal appearance, PERRL ENT exam: Present: normal exam Neck exam: Present: normal inspection Respiratory exam: Present: normal lung sounds bilaterally. Absent: respiratory distress Cardiovascular Exam: Present: regular rate, normal rhythm GI/Abdominal exam: Present: soft. Absent: distended, tenderness, guarding Extremities exam: Present: other (There is some purulence from the anterior right hip incision with some surrounding erythema. There is severe limitation in the range of motion of the hip suggestive of septic arthritis). Absent: full ROM Neurological exam: Present: alert, oriented X3, CN II-XII intact. Absent: motor sensory deficit Skin exam: Present: warm, dry Course Vital Signs 12/08/21 12/08/21 07:56 09:39 Temperature 97.4 F L Pulse Rate 104 H 96 Respiratory 18 18 Rate Blood Pressure 123/85 134/91 O2 Sat by Pulse 98 100 Oximetry - Reevaluation(s) Reevaluation #1: 12/08/21 08:[address] Isaac, he has discharged this patient from his practice and he is not monorail helper currently. He recommends the patient be seen in consultation by [facility] who is on city call today. Medical Decision Making - Medical Decision Making 26-year-old female with suspected recurrent right hip septic arthritis. IV established, blood cultures as well as laboratory testing are obtained. The patient is started on antibiotics and Phi ceftriaxone and vancomycin. I initially discussed case with Dr. Isaac and Dr. Nichole regarding admission with orthopedics on consult for evaluation. Dr. Isaac is not monorail helper today and has discharge this patient from his service. I discussed case with the on-call surgeon Dr. Hall who states this patient's care is above his scope of practice and recommends transfer. Ultimately I was able to discuss case with [facility], Dr. Bird and Sisi, both will accept transfer. - Lab Data Result diagrams: 12/08/21 08:50 12/08/21 08:50 Lab Results 12/08/21 12/08/21 12/08/21 Range/Units 08:50 08:50 08:50 WBC 10.6 (3.8-10.6) k/uL RBC 4.10 (3.80-5.40) m/uL Hgb 11.6 (11.4-16.0) gm/dL Hct 36.1 (34.0-46.0) % MCV 88.0 (80.0-100.0) fL MCH 28.4 (25.0-35.0) pg MCHC 32.3 (31.0-37.0) g/dL RDW 13.4 (11.5-15.5) % Plt Count 492 H (150-450) k/uL MPV 6.7 Neutrophils % 75 % Lymphocytes % 16 % Monocytes % 6 % Eosinophils % 1 % Basophils % 0 % Neutrophils # 8.0 H (1.3-7.7) k/uL Lymphocytes # 1.7 (1.0-4.8) k/uL Monocytes # 0.7 (0-1.0) k/uL Eosinophils # 0.1 (0-0.7) k/uL Basophils # 0.0 (0-0.2) k/uL ESR 86 H (0-20) mm/hr PT 11.2 (9.0-12.0) sec INR 1.0 (<1.2) APTT 30.2 H (22.0-30.0) sec Sodium (137-145) mmol/L Potassium (3.5-5.1) mmol/L Chloride (98-107) mmol/L Carbon Dioxide (22-30) mmol/L Anion Gap mmol/L BUN (7-17) mg/dL Creatinine (0.52-1.04) mg/dL Est GFR (CKD-EPI)AfAm (>60 ml/min/1.73 sqM) Est GFR (CKD-EPI)NonAf (>60 ml/min/1.73 sqM) Glucose (74-99) mg/dL Plasma Lactic Acid Yang (0.7-2.0) mmol/L Calcium (8.4-10.2) mg/dL Total Bilirubin (0.2-1.3) mg/dL AST (14-36) U/L ALT (4-34) U/L Alkaline Phosphatase (38-126) U/L C-Reactive Protein (<1.0) mg/dL Total Protein (6.3-8.2) g/dL Albumin (3.5-5.0) g/dL Urine Color Yellow Urine Appearance Cloudy H (Clear) Urine pH 7.0 (5.0-8.0) Ur Specific [place] 1.027 (1.001-1.035) Urine Protein 1+ H (Negative) Urine Glucose (UA) Negative (Negative) Urine Ketones Negative (Negative) Urine Blood Negative (Negative) Urine Nitrite Negative (Negative) Urine Bilirubin Negative (Negative) Urine Urobilinogen <2.0 (<2.0) mg/dL Ur Leukocyte Esterase Small H (Negative) Urine RBC 2 (0-5) /hpf Urine WBC 9 H (0-5) /hpf Ur Squamous Epith Cells 47 H (0-4) /hpf Amorphous Sediment Few H (None) /hpf Urine Bacteria Occasional H (None) /hpf Urine Mucus Rare H (None) /hpf Urine HCG, Qual (Not Detectd) Urine Opiates Screen Not Detected (NotDetected) Ur Oxycodone Screen Not Detected (NotDetected) Urine Methadone Screen Not Detected (NotDetected) Ur Propoxyphene Screen Not Detected (NotDetected) Ur Barbiturates Screen Not Detected (NotDetected) U Tricyclic Antidepress Not Detected (NotDetected) Ur Phencyclidine Scrn Not Detected (NotDetected) Ur Amphetamines Screen Detected H (NotDetected) U Methamphetamines Scrn Detected H (NotDetected) U Benzodiazepines Scrn Not Detected (NotDetected) Urine Cocaine Screen Not Detected (NotDetected) U Marijuana (THC) Screen Detected H (NotDetected) 12/08/21 12/08/21 12/08/21 Range/Units 08:50 08:50 08:50 WBC (3.8-10.6) k/uL RBC (3.80-5.40) m/uL Hgb (11.4-16.0) gm/dL Hct (34.0-46.0) % MCV (80.0-100.0) fL MCH (25.0-35.0) pg MCHC (31.0-37.0) g/dL RDW (11.5-15.5) % Plt Count (150-450) k/uL MPV Neutrophils % % Lymphocytes % % Monocytes % % Eosinophils % % Basophils % % Neutrophils # (1.3-7.7) k/uL Lymphocytes # (1.0-4.8) k/uL Monocytes # (0-1.0) k/uL Eosinophils # (0-0.7) k/uL Basophils # (0-0.2) k/uL ESR (0-20) mm/hr PT (9.0-12.0) sec INR (<1.2) APTT (22.0-30.0) sec Sodium 134 L (137-145) mmol/L Potassium 4.2 (3.5-5.1) mmol/L Chloride 100 (98-107) mmol/L Carbon Dioxide 25 (22-30) mmol/L Anion Gap 9 mmol/L BUN 8 (7-17) mg/dL Creatinine 0.45 L (0.52-1.04) mg/dL Est GFR (CKD-EPI)AfAm >90 (>60 ml/min/1.73 sqM) Est GFR (CKD-EPI)NonAf >90 (>60 ml/min/1.73 sqM) Glucose 113 H (74-99) mg/dL Plasma Lactic Acid Yang 0.8 (0.7-2.0) mmol/L Calcium 9.5 (8.4-10.2) mg/dL Total Bilirubin 0.9 (0.2-1.3) mg/dL AST 24 (14-36) U/L ALT 17 (4-34) U/L Alkaline Phosphatase 122 (38-126) U/L C-Reactive Protein 7.3 H (<1.0) mg/dL Total Protein 8.0 (6.3-8.2) g/dL Albumin 3.8 (3.5-5.0) g/dL Urine Color Urine Appearance (Clear) Urine pH (5.0-8.0) Ur Specific [place] (1.001-1.035) Urine Protein (Negative) Urine Glucose (UA) (Negative) Urine Ketones (Negative) Urine Blood (Negative) Urine Nitrite (Negative) Urine Bilirubin (Negative) Urine Urobilinogen (<2.0) mg/dL Ur Leukocyte Esterase (Negative) Urine RBC (0-5) /hpf Urine WBC (0-5) /hpf Ur Squamous Epith Cells (0-4) /hpf Amorphous Sediment (None) /hpf Urine Bacteria (None) /hpf Urine Mucus (None) /hpf Urine HCG, Qual Not Detected (Not Detectd) Urine Opiates Screen (NotDetected) Ur Oxycodone Screen (NotDetected) Urine Methadone Screen (NotDetected) Ur Propoxyphene Screen (NotDetected) Ur Barbiturates Screen (NotDetected) U Tricyclic Antidepress (NotDetected) Ur Phencyclidine Scrn (NotDetected) Ur Amphetamines Screen (NotDetected) U Methamphetamines Scrn (NotDetected) U Benzodiazepines Scrn (NotDetected) Urine Cocaine Screen (NotDetected) U Marijuana (THC) Screen (NotDetected) Disposition Clinical Impression: Septic arthritis, IV drug user Disposition: OTHER INSTITUTION NOT DEFINED Condition: Stable Is patient prescribed a controlled substance at d/c from ED?: No Referrals: None,Stated [Primary Care Provider] - 1-2 days Time of Disposition: 08:38 - Out of Hospital Transfer - Req. Specs Out of Hospital Transfer - Requested Specifics: Other Emergency Center ([facility])
[2021-12-08 08:59] LABS: Basophils % (A) 0 %; Eosinophils # (A) 0.1 k/uL (0-0.7); Eosinophils % (A) 1 %; HCT 36.1 % (34.0-46.0); HGB 11.6 gm/dL (11.4-16.0); Lymphocytes # (A) 1.7 k/uL (1.0-4.8); Lymphocytes % (A) 16 %; MCH 28.4 pg (25.0-35.0); MCHC 32.3 g/dL (31.0-37.0); Mean Platelet Volume 6.7; Monocytes # (A) 0.7 k/uL (0-1.0); Monocytes % (A) 6 %; Neutrophils % (A) 75 %; Platelet Count 492 k/uL (150-450); RDW 13.4 % (11.5-15.5); WBC 10.6 k/uL (3.8-10.6)
[2021-12-08 09:12] LABS: ALT 17 U/L (4-34); AST 24 U/L (14-36); African American GFR (CKD) >90 (>60 ml/min/1.73 sqM); Albumin 3.8 g/dL (3.5-5.0); Alkaline Phosphatase 122 U/L (38-126); Anion Gap 9 mmol/L; Blood Urea Nitrogen 8 mg/dL (7-17); C Reactive Protein 7.3 mg/dL (<1.0); Calcium 9.5 mg/dL (8.4-10.2); Carbon Dioxide 25 mmol/L (22-30); Chloride 100 mmol/L (98-107); Glucose 113 mg/dL (74-99); Non-African American GFR(CKD) >90 (>60 ml/min/1.73 sqM); Potassium 4.2 mmol/L (3.5-5.1); Sodium 134 mmol/L (137-145); Total Bilirubin 0.9 mg/dL (0.2-1.3)
[2021-12-08 09:13] LABS: Partial Thromboplastin Time 30.2 sec (22.0-30.0); Prothrombin Time 11.2 sec (9.0-12.0)
[2021-12-08 09:20] LABS: Amorphous Sediment,Urine Few /hpf; Appearance,Urine Cloudy (Clear); Bacteria,Urine Occasional /hpf; Bilirubin,Urine Negative (Negative); Blood,Urine Negative (Negative); Color,Urine Yellow; Glucose,Urine (UA) Negative (Negative); Ketones,Urine Negative (Negative); Leukocyte Esterase,Urine Small (Negative); Mucus,Urine Rare /hpf; Nitrite,Urine Negative (Negative); Protein,Urine 1+ (Negative); RBC,Urine 2 /hpf (0-5); Specific Gravity,Urine 1.027 (1.001-1.035); Squamous Epithelial Cell,Urine 47 /hpf (0-4); Urobilinogen,Urine <2.0 mg/dL (<2.0); WBC,Urine 9 /hpf (0-5)
[2021-12-08 09:21] LABS: Amphetamine Screen,Urine Detected (NotDetected); Barbiturate Screen,Urine Not Detected (NotDetected); Benzodiazepines Screen,Urine Not Detected (NotDetected); Cocaine Screen,Urine Not Detected (NotDetected); Methadone Screen, Urine Not Detected (NotDetected); Opiate Screen,Urine Not Detected (NotDetected); Oxycodone Screen, Urine Not Detected (NotDetected); Phencyclidine Screen,Urine Not Detected (NotDetected); Tricyclic Antidepressant,Urine Not Detected (NotDetected); Urn Cannabinoid Scrn Detected (NotDetected)
--- NOTE | 2021-12-08 10:54 | P.PN ---
Progress Note - Text Progress Note Date: 12/08/21 I was contacted by Dr. Benitez of the ED earlier this morning about this patient. Briefly, the patient is a 26 year old female with a medical history significant for IV drug use, cigarette smoking and Hepatitis C who was initially managed at [facility] for a [place] septic hip in October of this year. She had an I&D by Dr. Turcios, an orthopaedic surgeon at [facility] at that time. The patient left AMA from [facility] twice before IV antibiotic treatment via a PICC line could be arranged. She presented to our ED later that month and was found to have a recurrent septic hip with a large abscess and draining wound. She was admitted to and I was on-call for orthopaedics at that time. I took the patient to the OR for repeat I&D, deep cultures, closure over a drain and placement of a wound VAC. She initially did well and I gave recommendations to follow-up with Dr. Turcios her primary orthopaedic surgeon who performed her index hip procedure. I also stressed the importance of compliance with IV antibiotics to treat her infection. Unfortunately she again left AMA from our facility bef ore she could get a PICC line or antibiotics. I have not seen the patient since as all follow-up was arranged with Dr. Turcios (Orthopaedics) and Dr. Angulo (Infectious Disease). She apparently presented this morning with increased hip pain and a likely recurrent infection in her hip per Dr. Benitez. Since I am not financial foundations representative for the hospital at this time, I will defer to the on-call orthopaedic surgeon for management of her recurrent infection.
--- NOTE | 2021-12-08 11:16 | P.CNOR ---
History of Present Illness - [facility] Consult date: 12/08/21 Consult reason: other (Right hip septic arthritis) History of present illness: Patient is a 26-year-old female who presented to [facility] for evaluation of her right hip. Patient has very detailed history with regards to her right hip. Patient has undergone two separate I&D procedures for a septic arthritis on her right hip. The first one was done in mid October 2021 at [facility] by Dr. Turcios, the second was done the end of October 2021 at [facility] by Dr. Isaac. During both of her previous hospital visits, the patient left AGAINST MEDICAL ADVICE. It was recommended at both previous hospital visits that she received at least 6 weeks of IV antibiotic treatment. With her significant history of IV drug abuse, this would have required rehab placement for utilization of IV antibiotics. Patient has not received IV antibiotics the right hip infection. Patient states that she has not followed up with either surgeon regarding her right hip. It was noted from Dr. Michael previous evaluation that he recommended follow-up with the original operating surgeon upon discharge. Patient did present to the emergency room with regards to worsening pain i nvolving the right hip. She states that the pain has been going on for about a day or so. Patient denies any fevers or chills. States that she has had drainage from the incision. She denies any pain involving the knee, foot or ankle on the right-hand side. She denies any left lower extremity pain. She denies extremity pain. She denies lightheadedness, chest pain or shortness of breath. She denies any recent traumatic events to the right hip. Review of Systems Constitutional: Reports as per HPI Past Medical History Past Medical History: Asthma Additional Past Medical History / Comment(s): diarrhea, opiate abuse History of Any Multi-Drug Resistant Organisms: None Reported Past Surgical History: Appendectomy, Ear Surgery Additional Past Surgical History / Comment(s): tubes in ears a child x4. Past Anesthesia/Blood Transfusion Reactions: No Reported Reaction Past Psychological History: ADD/ADHD, Anxiety, Panic Disorder Smoking Status: Current every day smoker Past Alcohol Use History: None Reported Past Drug Use History: Heroin, IV Drug Use, Marijuana, Methamphetamine, Opiates - Past Family History Mother History Unknown: Yes Family Medical History: No Reported History Father Additional Family Medical History / Comment(s): ADD, addiction Medications and Allergies Home Medications Medication Instructions Recorded Confirmed Type No Known Home Medications 11/09/20 12/08/21 History Allergies Allergy/AdvReac Type Severity Reaction Status Date / Time No Known Allergies Allergy Verified 12/08/21 08:19 Physical Examination Osteopathic Statement: *. No significant issues noted on an osteopathic structural exam other than those noted in the History and Physical/Consult. Right lower extremity: Previous incision is noted in the anterior proximal thigh. There is notable erythema surrounding it. There are multiple areas of scabbing/granulation tissue present. There is no obvious drainage present. She demonstrates obvious tenderness with palpation to the superior, inferior, medial and lateral borders of the incision. No knee effusion is appreciated, she demonstrates no tenderness with palpation surrounding the knee, lower leg, foot or ankle Plantar flexion, dorsiflexion, EHL, FHL are intact. Range of motion of the knee is limited due to pain and reproduces in the hip. Patient is straight leg raise. Internal and external rotation of the hip along with flexion passively reproduces severe pain in the groin. Calf is soft, no tenderness with palpation Sensory exam to light touch is intact at extremity Dorsalis pedis pulse, posterior tibialis pulses are 2+ Results - Labs Labs: Abnormal Lab Results - Last 24 Hours (Table) 12/08/21 12/08/21 12/08/21 Range/Units 08:50 08:50 08:50 Plt Count 492 H (150-450) k/uL Neutrophils # 8.0 H (1.3-7.7) k/uL APTT 30.2 H (22.0-30.0) sec Sodium (137-145) mmol/L Creatinine (0.52-1.04) mg/dL Glucose (74-99) mg/dL C-Reactive Protein (<1.0) mg/dL Urine Appearance Cloudy H (Clear) Urine Protein 1+ H (Negative) Ur Leukocyte Esterase Small H (Negative) Urine WBC 9 H (0-5) /hpf Ur Squamous Epith Cells 47 H (0-4) /hpf Amorphous Sediment Few H (None) /hpf Urine Bacteria Occasional H (None) /hpf Urine Mucus Rare H (None) /hpf Ur Amphetamines Screen Detected H (NotDetected) U Methamphetamines Scrn Detected H (NotDetected) U Marijuana (THC) Screen Detected H (NotDetected) 12/08/21 Range/Units 08:50 Plt Count (150-450) k/uL Neutrophils # (1.3-7.7) k/uL APTT (22.0-30.0) sec Sodium 134 L (137-145) mmol/L Creatinine 0.45 L (0.52-1.04) mg/dL Glucose 113 H (74-99) mg/dL C-Reactive Protein 7.3 H (<1.0) mg/dL Urine Appearance (Clear) Urine Protein (Negative) Ur Leukocyte Esterase (Negative) Urine WBC (0-5) /hpf Ur Squamous Epith Cells (0-4) /hpf Amorphous Sediment (None) /hpf Urine Bacteria (None) /hpf Urine Mucus (None) /hpf Ur Amphetamines Screen (NotDetected) U Methamphetamines Scrn (NotDetected) U Marijuana (THC) Screen (NotDetected) H & H 12/08/21 Range/Units 08:50 Hgb 11.6 (11.4-16.0) gm/dL Hct 36.1 (34.0-46.0) % Coagulation 12/08/21 Range/Units 08:50 INR 1.0 (<1.2) Result Diagrams: 12/08/21 08:50 12/08/21 08:50 Assessment and Plan Assessment: Right hip pain Right hip septic arthritis Previous incision and drainage 2 for right hip septic arthritis IV drug abuse Other medical comorbidities Plan: The case was discussed with my attending Dr. Hall after evaluation. Clinically the patient is demonstrating signs/symptoms of recurrent sub-acute septic arthritis with now a chronically draining sinus tract to the right hip after having two I&D's in the last month and a half through a direct anterior approach. Dr. Isaac was initially contacted about this patient via the emergency room staff, he is deferring care to the on-call orthopedic Taking into consideration the patient's medical history, previous surgical procedures to the right hip, and her overall medical state and complexity of needing further treatment going forward we recommend patient to be transferred to a tertiary care facility for continuation of treatment. Please contact our service with any questions Time with Patient: Less than 30
[2021-12-08 11:32] LABS: Erythrocyte Sedimentation Rate 86 mm/hr (0-20)
[2021-12-08 12:59] VITALS: BP 116/79; PULSE 98; RESP 16
[2021-12-08] MEDS ORDERED: VANCOMYCIN 1,250 MG in SODIUM CHLORIDE 0.9% 250 ML IVPB SCH (18:00)
== END 2021-12-08 13:27 | disposition other institution (70) ==
LOC: EC 07:55 → UNDOADMIN 08:16 → 4SSUR 08:16 → EC 13:27
DX: M00.9 Pyogenic arthritis, unspecified (principal); F19.90 Other psychoactive substance use, unspecified, uncomplicated; F17.200 Nicotine dependence, unspecified, uncomplicated; J45.909 Unspecified asthma, uncomplicated
CPT/HCPCS: 80053; 85652; 83605; 85025; 85610; 85730; 86140; 81001; 81025; 87040; 80306; 87077; 87186; 99285; 96365; 96366; 96375; 96361; J3370; J0696; J1885

== ENCOUNTER 2022-02-13 13:37 | Emergency (ER) | payer OTHER ==
[2022-02-13] MEDS ORDERED: SODIUM CHLORIDE 0.9% 1,000 ML IV STA (14:20)
[2022-02-13] MEDS ORDERED: KETOROLAC 15 MG/ML 1 ML VIAL IVP STA (14:20)
--- NOTE | 2022-02-13 14:28 | ED ---
Skin/Abscess/FB HPI - General Chief complaint: Skin/Abscess/Foreign Body Stated complaint: rt leg absess Time Seen by Provider: 02/13/22 14:14 Source: patient, RN notes reviewed Mode of arrival: ambulatory Limitations: no limitations - History of Present Illness Initial comments: This is a 26-year-old female who presents to the emergency department for a right leg abscess. Patient has had 4 surgeries to the right hip due to recurrent bouts of septic arthritis, most recently in November of this year. Her first 2 Surgeries took place in early October with Dr. Turcios at [facility]. She had another procedure done with Dr. Isaac here at the end of October. In November, she returned with similar symptoms, and required transfer to [facility] for surgical intervention. She has never required a hip replacement, and each procedure has involved an I&D and wash out. Patient states that at [facility], she was discharged sooner than she should have been without appropriate antibiotic management, and also had a nerve severed during surgery causing pain and difficulty with ambulation that she has never had after that procedure. Patient requests to avoid returning to [facility] for additional management. In the past, these infections have been due to IVDU. Patient states that the abscess is over the surgical incision. Patient is currently an inmate in jail and has had 3 courses of Bactrim (each course was 7 days long) and 1 dose of IM Rocephin without any relief. States that the area is tender, however she does not believe that it has progressed into the joint, as she is still able to ambulate without much difficulty. Denies any fevers or chills. The area is very swollen and she has had a couple areas of drainage. Denies any fevers, chills, sore throat, cough, dyspnea, chest pain, palpitations, abdominal pain, nausea, vomiting, diarrhea, back pain, or headaches. MD complaint: abscess/boil - Related Data Home Medications Medication Instructions Recorded Confirmed No Known Home Medications 11/09/20 12/08/21 Allergies Allergy/AdvReac Type Severity Reaction Status Date / Time No Known Allergies Allergy Verified 02/13/22 13:56 Review of Systems ROS Statement: Those systems with pertinent positive or pertinent negative responses have been documented in the HPI. ROS Other: All systems not noted in ROS Statement are negative. Past Medical History Past Medical History: Asthma Additional Past Medical History / Comment(s): diarrhea, opiate abuse History of Any Multi-Drug Resistant Organisms: None Reported Past Surgical History: Appendectomy, Ear Surgery Additional Past Surgical History / Comment(s): tubes in ears a child x4. Past Anesthesia/Blood Transfusion Reactions: No Reported Reaction Past Psychological History: ADD/ADHD, Anxiety, Panic Disorder Smoking Status: Current every day smoker Past Alcohol Use History: None Reported Past Drug Use History: Heroin, IV Drug Use, Marijuana, Methamphetamine, Opiates - Past Family History Mother History Unknown: Yes Family Medical History: No Reported History Father Additional Family Medical History / Comment(s): ADD, addiction General Exam Limitations: no limitations General appearance: alert, in no apparent distress Head exam: Present: atraumatic, normocephalic, normal inspection Respiratory exam: Present: normal lung sounds bilaterally. Absent: respiratory distress, wheezes, rales, rhonchi, stridor Cardiovascular Exam: Present: regular rate, normal rhythm, normal heart sounds. Absent: systolic murmur, diastolic murmur, rubs, gallop, clicks Neurological exam: Present: alert, oriented X3, CN II-XII intact Psychiatric exam: Present: normal affect, normal mood Skin exam: Present: other (Large area of induration over the surgical scar on the anterior aspect of the right femur. Overlying erythema, tenderness, and heat.) Course Vital Signs 02/13/22 02/13/22 02/13/22 13:54 16:24 17:46 Temperature 98.4 F 98.6 F 98 F Pulse Rate 94 90 86 Respiratory 16 16 16 Rate Blood Pressure 138/89 130/80 120/58 O2 Sat by Pulse 100 98 100 Oximetry Medical Decision Making - Medical Decision Making This is a 26-year-old female who presents to the emergency department for a right hip abscess. Lab work reveals no leukocytosis. She does have an elevated ESR and CRP. Of note, each time the patient has been here in the past and required surgical intervention for the abscess, she has never developed an elevated white count or fevers. X-rays obtained and did not identify any signs of the infection progressing into the joint. However, x-rays previously obtained in the emergency department have never revealed joint involvement, this has only been evident on MRIs that she has had. Ultrasound was then obtained, this revealed a 6 x 3 cm complex mass in the area of concern with solid and cystic components consistent with an abscess. I spoke with Dr. Downing, concrete hopper operator orthopedics, who advised that due to the complex history of recurrent septic arthritis, he requested she be transferred to a tertiary center for higher level of care. Patient given IV clindamycin, fluids, and Toradol in the emergency department. Patient was accepted by orthopedic surgeon Dr. Peoples at [place] [facility] in [place], [place] as an ER to ER transfer. This case was discussed in detail with the attending ED physician. Presentation, findings, and treatment plan discussed in detail as well. - Lab Data Result diagrams: 02/13/22 14:47 02/13/22 15:08 Lab Results 02/13/22 02/13/22 02/13/22 Range/Units 14:47 14:47 14:47 WBC 8.4 (3.8-10.6) k/uL RBC 3.99 (3.80-5.40) m/uL Hgb 11.6 (11.4-16.0) gm/dL Hct 35.5 (34.0-46.0) % MCV 88.9 (80.0-100.0) fL MCH 29.1 (25.0-35.0) pg MCHC 32.7 (31.0-37.0) g/dL RDW 14.8 (11.5-15.5) % Plt Count 263 (150-450) k/uL MPV 8.1 Neutrophils % 65 % Lymphocytes % 26 % Monocytes % 5 % Eosinophils % 2 % Basophils % 1 % Neutrophils # 5.4 (1.3-7.7) k/uL Lymphocytes # 2.2 (1.0-4.8) k/uL Monocytes # 0.4 (0-1.0) k/uL Eosinophils # 0.2 (0-0.7) k/uL Basophils # 0.1 (0-0.2) k/uL ESR 41 H (0-20) mm/hr Sodium (137-145) mmol/L Potassium (3.5-5.1) mmol/L Chloride (98-107) mmol/L Carbon Dioxide (22-30) mmol/L Anion Gap mmol/L BUN (7-17) mg/dL Creatinine (0.52-1.04) mg/dL Est GFR (CKD-EPI)AfAm (>60 ml/min/1.73 sqM) Est GFR (CKD-EPI)NonAf (>60 ml/min/1.73 sqM) Glucose (74-99) mg/dL Calcium (8.4-10.2) mg/dL Total Bilirubin (0.2-1.3) mg/dL AST (14-36) U/L ALT (4-34) U/L Alkaline Phosphatase (38-126) U/L C-Reactive Protein (<1.0) mg/dL Total Protein (6.3-8.2) g/dL Albumin (3.5-5.0) g/dL Urine Color Colorless Urine Appearance Clear (Clear) Urine pH 6.5 (5.0-8.0) Ur Specific [place] 1.003 (1.001-1.035) Urine Protein Negative (Negative) Urine Glucose (UA) Negative (Negative) Urine Ketones Negative (Negative) Urine Blood Negative (Negative) Urine Nitrite Negative (Negative) Urine Bilirubin Negative (Negative) Urine Urobilinogen <2.0 (<2.0) mg/dL Ur Leukocyte Esterase Negative (Negative) Urine HCG, Qual Not Detected (Not Detectd) Urine Opiates Screen Not Detected (NotDetected) Ur Oxycodone Screen Not Detected (NotDetected) Urine Methadone Screen Not Detected (NotDetected) Ur Propoxyphene Screen Not Detected (NotDetected) Ur Barbiturates Screen Not Detected (NotDetected) U Tricyclic Antidepress Not Detected (NotDetected) Ur Phencyclidine Scrn Not Detected (NotDetected) Ur Amphetamines Screen Not Detected (NotDetected) U Methamphetamines Scrn Not Detected (NotDetected) U Benzodiazepines Scrn Not Detected (NotDetected) Urine Cocaine Screen Not Detected (NotDetected) U Marijuana (THC) Screen Not Detected (NotDetected) 02/13/22 Range/Units 15:08 WBC (3.8-10.6) k/uL RBC (3.80-5.40) m/uL Hgb (11.4-16.0) gm/dL Hct (34.0-46.0) % MCV (80.0-100.0) fL MCH (25.0-35.0) pg MCHC (31.0-37.0) g/dL RDW (11.5-15.5) % Plt Count (150-450) k/uL MPV Neutrophils % % Lymphocytes % % Monocytes % % Eosinophils % % Basophils % % Neutrophils # (1.3-7.7) k/uL Lymphocytes # (1.0-4.8) k/uL Monocytes # (0-1.0) k/uL Eosinophils # (0-0.7) k/uL Basophils # (0-0.2) k/uL ESR (0-20) mm/hr Sodium 137 (137-145) mmol/L Potassium 4.8 (3.5-5.1) mmol/L Chloride 105 (98-107) mmol/L Carbon Dioxide 18 L (22-30) mmol/L Anion Gap 14 mmol/L BUN 14 (7-17) mg/dL Creatinine 0.63 (0.52-1.04) mg/dL Est GFR (CKD-EPI)AfAm >90 (>60 ml/min/1.73 sqM) Est GFR (CKD-EPI)NonAf >90 (>60 ml/min/1.73 sqM) Glucose 97 (74-99) mg/dL Calcium 9.2 (8.4-10.2) mg/dL Total Bilirubin 0.5 (0.2-1.3) mg/dL AST 35 (14-36) U/L ALT 25 (4-34) U/L Alkaline Phosphatase 70 (38-126) U/L C-Reactive Protein 5.0 H (<1.0) mg/dL Total Protein 7.9 (6.3-8.2) g/dL Albumin 4.5 (3.5-5.0) g/dL Urine Color Urine Appearance (Clear) Urine pH (5.0-8.0) Ur Specific [place] (1.001-1.035) Urine Protein (Negative) Urine Glucose (UA) (Negative) Urine Ketones (Negative) Urine Blood (Negative) Urine Nitrite (Negative) Urine Bilirubin (Negative) Urine Urobilinogen (<2.0) mg/dL Ur Leukocyte Esterase (Negative) Urine HCG, Qual (Not Detectd) Urine Opiates Screen (NotDetected) Ur Oxycodone Screen (NotDetected) Urine Methadone Screen (NotDetected) Ur Propoxyphene Screen (NotDetected) Ur Barbiturates Screen (NotDetected) U Tricyclic Antidepress (NotDetected) Ur Phencyclidine Scrn (NotDetected) Ur Amphetamines Screen (NotDetected) U Methamphetamines Scrn (NotDetected) U Benzodiazepines Scrn (NotDetected) Urine Cocaine Screen (NotDetected) U Marijuana (THC) Screen (NotDetected) - Radiology Data Radiology results: report reviewed, image reviewed Disposition Clinical Impression: Hx of septic arthritis, Abscess of right hip Disposition: OTHER INSTITUTION NOT DEFINED Referrals: None,Stated [Primary Care Provider] - 1-2 days - Out of Hospital Transfer - Req. Specs Out of Hospital Transfer - Requested Specifics: Other Emergency Center ([facility])
[2022-02-13 14:54] LABS: Basophils # (A) 0.1 k/uL (0-0.2); Basophils % (A) 1 %; Eosinophils # (A) 0.2 k/uL (0-0.7); Eosinophils % (A) 2 %; HCT 35.5 % (34.0-46.0); HGB 11.6 gm/dL (11.4-16.0); Lymphocytes # (A) 2.2 k/uL (1.0-4.8); Lymphocytes % (A) 26 %; MCH 29.1 pg (25.0-35.0); MCHC 32.7 g/dL (31.0-37.0); MCV 88.9 fL (80.0-100.0); Mean Platelet Volume 8.1; Monocytes # (A) 0.4 k/uL (0-1.0); Monocytes % (A) 5 %; Neutrophils # (A) 5.4 k/uL (1.3-7.7); Neutrophils % (A) 65 %; Platelet Count 263 k/uL (150-450); RBC 3.99 m/uL (3.80-5.40); RDW 14.8 % (11.5-15.5); WBC 8.4 k/uL (3.8-10.6)
[2022-02-13 15:05] LABS: Appearance,Urine Clear (Clear); Bilirubin,Urine Negative (Negative); Blood,Urine Negative (Negative); Color,Urine Colorless; Glucose,Urine (UA) Negative (Negative); Ketones,Urine Negative (Negative); Leukocyte Esterase,Urine Negative (Negative); Nitrite,Urine Negative (Negative); PH, Urine 6.5 (5.0-8.0); Protein,Urine Negative (Negative); Specific Gravity,Urine 1.003 (1.001-1.035); Urobilinogen,Urine <2.0 mg/dL (<2.0)
[2022-02-13 15:26] LABS: ALT 25 U/L (4-34); AST 35 U/L (14-36); African American GFR (CKD) >90 (>60 ml/min/1.73 sqM); Albumin 4.5 g/dL (3.5-5.0); Alkaline Phosphatase 70 U/L (38-126); Anion Gap 14 mmol/L; Blood Urea Nitrogen 14 mg/dL (7-17); Calcium 9.2 mg/dL (8.4-10.2); Carbon Dioxide 18 mmol/L (22-30); Chloride 105 mmol/L (98-107); Glucose 97 mg/dL (74-99); Non-African American GFR(CKD) >90 (>60 ml/min/1.73 sqM); Potassium 4.8 mmol/L (3.5-5.1); Sodium 137 mmol/L (137-145); Total Bilirubin 0.5 mg/dL (0.2-1.3); Total Protein 7.9 g/dL (6.3-8.2)
[2022-02-13 15:28] LABS: Amphetamine Screen,Urine Not Detected (NotDetected); Barbiturate Screen,Urine Not Detected (NotDetected); Benzodiazepines Screen,Urine Not Detected (NotDetected); Cocaine Screen,Urine Not Detected (NotDetected); Methadone Screen, Urine Not Detected (NotDetected); Opiate Screen,Urine Not Detected (NotDetected); Oxycodone Screen, Urine Not Detected (NotDetected); Phencyclidine Screen,Urine Not Detected (NotDetected); Tricyclic Antidepressant,Urine Not Detected (NotDetected); Urn Cannabinoid Scrn Not Detected (NotDetected)
--- NOTE | 2022-02-13 15:52 | XR ---
EXAMINATION TYPE: XR Hip Complete RT DATE OF EXAM: 02/13/2022 COMPARISON: NONE HISTORY: Hip pain TECHNIQUE: 2 views FINDINGS: AP and frog-leg views show no fracture nor dislocation. Joint spaces are normal. Sacroiliac joint is intact IMPRESSION: Negative right hip exam.
[2022-02-13 15:53] LABS: Erythrocyte Sedimentation Rate 41 mm/hr (0-20)
--- NOTE | 2022-02-13 15:53 | XR ---
EXAMINATION TYPE: XR femur RT DATE OF EXAM: 02/13/2022 COMPARISON: NONE HISTORY: Infection TECHNIQUE: 4 views FINDINGS: There is no sign of fracture nor dislocation. Hip joint and knee joint appear intact. No pa thologic calcification. IMPRESSION: Negative right femur exam
--- NOTE | 2022-02-13 16:46 | US ---
EXAMINATION TYPE: US extremity nonvasc mass RT DATE OF EXAM: 02/13/2022 COMPARISON: NONE CLINICAL HISTORY: Right hip abscess. At patients right leg scar is a complex vascular area measuring 5.8 x 3.0 x 6.3cm IMPRESSION: There is a 6 x 3 cm complex mass in the area of concern in the right groin. This has marta d and cystic components and could be abscess or hematoma.
[2022-02-13] MEDS ORDERED: CLINDAMYCIN 600 MG in DEXTROSE 5% IN WATER 50 ML IVPB STA ×2 (17:22)
[2022-02-13 17:57] VITALS: TEMP 98
[2022-02-13 20:14] VITALS: BP 101/64; PULSE 79; RESP 16
== END 2022-02-13 21:08 | disposition other institution (70) ==
LOC: EC 13:37
DX: L02.415 Cutaneous abscess of right lower limb (principal); J45.909 Unspecified asthma, uncomplicated; F17.200 Nicotine dependence, unspecified, uncomplicated; Z87.39 Personal history of other diseases of the musculoskeletal system and connective tissue
CPT/HCPCS: 36415; 80053; 85652; 85025; 86140; 81003; 81025; 87040; 80306; 73502; 73552; 76882; 96365; 96375; 96361; 99284; J1885

== ENCOUNTER 2023-11-09 14:18 | Emergency (ER) | payer OTHER ==
[2023-11-09 14:25] VITALS: RESP 18
--- NOTE | 2023-11-09 15:30 | ED ---
ENT HPI - General Chief complaint: ENT Stated complaint: Nose Pain Time Seen by Provider: 11/09/23 14:38 Source: patient, RN notes reviewed Mode of arrival: ambulatory Limitations: no limitations - History of Present Illness Initial comments: 28-year-old female presenting with bumps in left nostril x 1 day. States she has had this several times in the past and she is concerned that it is a herpes outbreak. She has never had it checked however she would like it to be swabbed today. She states this recent outbreak began yesterday and consists of several painful bumps in the nostril with intermittent drainage. She reports in the past she has the outbreaks when she is stressed or sick. Denies oral or genital lesions. She has had a blood test in the past and was positive for HSV 1 and 2. - Related Data Previous Rx's Medication Instructions Recorded valACYclovir HCL [Valtrex] 500 mg PO BID 3 Days #6 tablet 11/09/23 Allergies Allergy/AdvReac Type Severity Reaction Status Date / Time No Known Allergies Allergy Verified 11/09/23 14:25 Review of Systems ROS Statement: Those systems with pertinent positive or pertinent negative responses have been documented in the HPI. ROS Other: All systems not noted in ROS Statement are negative. Past Medical History Past Medical History: Asthma Additional Past Medical History / Comment(s): diarrhea, opiate abuse History of Any Multi-Drug Resistant Organisms: None Reported Past Surgical History: Appendectomy, Ear Surgery Additional Past Surgical History / Comment(s): tubes in ears a child x4. , hip surgery Past Anesthesia/Blood Transfusion Reactions: No Reported Reaction Past Psychological History: ADD/ADHD, Anxiety, Panic Disorder Smoking Status: Current every day smoker Past Alcohol Use History: None Reported Past Drug Use History: Heroin, IV Drug Use, Marijuana, Methamphetamine, Opiates - Past Family History Mother History Unknown: Yes Family Medical History: No Reported History Father Additional Family Medical History / Comment(s): ADD, addiction General Exam Limitations: no limitations General appearance: alert, in no apparent distress Head exam: Present: atraumatic, normocephalic, normal inspection Eye exam: Present: normal appearance, PERRL, EOMI. Absent: scleral icterus, conjunctival injection, periorbital swelling ENT exam: Present: normal exam, mucous membranes moist, other (3-4 crusted, erythematous lesions present in superficial aspect of left nostril. No drainage.) Neck exam: Present: normal inspection. Absent: tenderness, meningismus, lymphadenopathy Respiratory exam: Present: normal lung sounds bilaterally. Absent: respiratory distress, wheezes, rales, rhonchi, stridor Cardiovascular Exam: Present: regular rate, normal rhythm, normal heart sounds. Absent: systolic murmur, diastolic murmur, rubs, gallop, clicks Neurological exam: Present: alert, oriented X3, CN II-XII intact Psychiatric exam: Present: normal affect, normal mood Skin exam: Present: warm, dry, intact, normal color. Absent: rash Course Vital Signs 11/09/23 14:22 Temperature 97.6 F Pulse Rate 8 L Respiratory 18 Rate Blood Pressure 120/76 O2 Sat by Pulse 97 Oximetry Medical Decision Making - Medical Decision Making Was pt. sent in by a medical professional or institution ([facility]inaldi, [facility], urgent care, hospital, or senior living...) When possible be specific @ -No Did you speak to anyone other than the patient for history (EMS, parent, family, police, friend...)? What history was obtained from this source @ -No Did you review nursing and triage notes (agree or disagree)? Why? @ -I reviewed and agree with nursing and triage notes Were old charts reviewed (outside hosp., previous admission, EMS record, old EKG, old radiological studies, urgent care reports/EKG's, senior living records)? Report findings @ -No old charts were reviewed Differential Diagnosis (chest pain, altered mental status, abdominal pain women, abdominal pain men, vaginal bleeding, weakness, fever, dyspnea, syncope, headache, dizziness, GI bleed, back pain, seizure, CVA, palpatations, mental health, musculoskeletal)? @ -Herpes simplex, [id number]-mouth, folliculitis, viral URI, cellulitis, nasal polyp EKG interpreted by me (3pts min.). @ -None X-rays interpreted by me (1pt min.). @ -None done CT interpreted by me (1pt min.). @ -None done U/S interpreted by me (1pt. min.). @ -None done What testing was considered but not performed or refused? (CT, X-rays, U/S, labs)? Why? @ -None What meds were considered but not given or refused? Why? @ -None Did you discuss the management of the patient with other professionals (professionals i.e. , PA, S[employer]ER MACHINE, lab, RT, psych nurse, psychotherapist social worker, writing center director, teacher, collection officer, counter caser)? Give summary @ -No Was smoking cessation discussed for >3mins.? @ -No Was critical care preformed (if so, how long)? @ -No Were there social determinants of health that impacted care today? How? (Homelessness, low income, unemployed, alcoholism, drug addiction, transportation, low edu. Level, literacy, decrease access to med. care, [facility], rehab)? @ -No Was there de-escalation of care discussed even if they declined (Discuss DNR or withdrawal of care, Hospice)? DNR status @ -No What co-morbidities impacted this encounter? (DM, HTN, Smoking, COPD, CAD, Cancer, CVA, ARF, Chemo, Hep., AIDS, mental health diagnosis, sleep apnea, morbid obesity)? @ -None Was patient admitted / discharged? Hospital course, mention meds given and route, prescriptions, significant lab abnormalities, going to OR and other pertinent info. @ -Patient was discharged. Patient was seen and evaluated for bumps in left nostril x 1 day. Patient has history of known HSV 1 and 2. There are no red flag symptoms. Physical examination reveals multiple crusted lesions present in left nostril. There is no drainage or sign of bacterial infection. Discussed diagnosis of herpes simplex with patient. HSV 1 and 2 PCR collected from left nostril and sent. Prescribed Valtrex. Supportive care discussed. Alarm symptoms discussed with patient and she shows understanding and agrees with plan. Case discussed with my attending Dr. Aden. Patient discharged in stable condition. Undiagnosed new problem with uncertain prognosis? @ -No Drug Therapy requiring intensive monitoring for toxicity (Heparin, Nitro, Insulin, Cardizem)? @ -No Were any procedures done? @ -No Diagnosis/symptom? @ -Herpes simplex infection of left nostril Acute, or Chronic, or Acute on Chronic? @ -Acute Uncomplicated (without systemic symptoms) or Complicated (systemic symptoms)? @ -Uncomplicated Side effects of treatment? @ -No Exacerbation, Progression, or Severe Exacerbation? @ -No Poses a threat to life or bodily function? How? (Chest pain, [place], [place], pneumonia, PE, COPD, DKA, ARF, appy, cholecystitis, CVA, Diverticulitis, Homicidal, Suicidal, threat to staff... and all critical care pts) @ -No Disposition Clinical Impression: Herpes simplex infection Disposition: HOME SELF-CARE Condition: Stable Instructions (If sedation given, give patient instructions): Oral Herpes Simplex Virus Infections (ED) Additional Instructions: Please return to the Emergency Department if symptoms worsen or any other concerns. Prescriptions: valACYclovir HCL [Valtrex] 500 mg PO BID 3 Days #6 tablet Is patient prescribed a controlled substance at d/c from ED?: No Referrals: Gil Izquierdo MD [Primary Care Provider] - 1-2 days Time of Disposition: 15:54
[2023-11-09 16:27] VITALS: BP 132/78; PULSE 66; TEMP 97.8
== END 2023-11-09 16:24 | disposition home or self-care (01) ==
LOC: EC 14:18
DX: B00.9 Herpesviral infection, unspecified (principal); F17.200 Nicotine dependence, unspecified, uncomplicated
CPT/HCPCS: 87529; 99282